=== PATIENT | female | born 1950 | race Caucasian/White ===

== ENCOUNTER → 2017-04-25 | Outpatient (CLI) | payer OTHER ==
[2017-04-25 13:41] LABS: ALBUMIN 4.1 GM/DL (3.2-5.2); ALBUMIN/GLOBULIN RATIO 1.28 (1.00-1.93); BILIRUBIN,TOTAL 0.4 MG/DL (0.2-1.0); CALCIUM LEVEL 9.2 MG/DL (8.8-10.2); CREATININE FOR GFR 1.14 MG/DL (0.55-1.02); GLOMERULAR FILTRATION RATE 50.9 (>45); POTASSIUM SERUM 4.8 MEQ/L (3.5-5.1); TOTAL PROTEIN 7.3 GM/DL (6.4-8.2)
[2017-04-25 13:44] LABS: BASO % 0.5 % (0.0-1.0); EOS # 0.1 K/mm3 (0.0-0.50); EOS % 1.7 % (0.0-3.0); LARGE UNSTAINED CELL # 0.1 K/mm3 (0.0-0.4); LARGE UNSTAINED CELL % 1.7 % (0.0-4.0); LYMPH # 2.1 K/mm3 (1.5-4.5); LYMPH % 27.2 % (24.0-44.0); MEAN CORPUSCULAR HEMOGLOBIN 30.3 pg (27.0-33.0); MEAN CORPUSCULAR HGB CONC 32.8 g/dl (32.0-36.5); MEAN CORPUSCULAR VOLUME 92.4 fl (80.0-96.0); MONO # 0.3 K/mm3 (0.0-0.8); MONO % 4.1 % (0.0-5.0); NEUTROPHILS # 5.1 K/mm3 (1.8-7.7); NEUTROPHILS % 64.8 % (36.0-66.0); PLATELET COUNT, AUTOMATED 161 k/mm3 (150-450); RED CELL DISTRIBUTION WIDTH 14.6 % (11.5-14.5); WHITE BLOOD COUNT 7.8 K/mm3 (4.0-10.0)
== END ==
LOC: M SMT 11:06
PROVIDERS: ATTEND Family Medicine
DX: E11.40 Type 2 diabetes mellitus with diabetic neuropathy, unspecified (principal)

== ENCOUNTER → 2017-08-17 | Outpatient (CLI) | payer OTHER ==
--- NOTE | 2017-08-17 11:10 | REP ---
MR ANGIOGRAPHY OF THE CAROTID ARTERIES WITHOUT CONTRAST: HISTORY: Carotid artery disease. Weakness and dizziness. TECHNIQUE: 3D [id number] MR angiography is acquired. Maximal intensity projection images are generated and viewed rotationally. Source axial images are viewed. MR ANGIOGRAPHIC FINDINGS: The distal common carotid arteries are unremarkable bilaterally. There is evidence of atherosclerotic plaquing in the carotid bulb and proximal ICA bilaterally. On the left, there is 50-60% narrowing on the right, there is 75-80% narrowing at the origin of the ICA. The vertebral arteries are unremarkable as visualized. IMPRESSION: Bilateral ICA stenoses, 50-60% on the left and 75-80% on the right. Signed by Yamil Marcelino MD 08/17/2017 03:20 P
== END ==
LOC: M RAD 08-10 09:27
PROVIDERS: ATTEND Internal Medicine Cardiovascular Disease
DX: I65.23 Occlusion and stenosis of bilateral carotid arteries (principal)

== ENCOUNTER → 2017-11-12 | Outpatient (CLI) | payer OTHER ==
[2017-11-12 12:05] LABS: BASO % 0.5 % (0.0-1.0); EOS # 0.1 10^3/uL (0.0-0.50); EOS % 1.4 % (0.0-3.0); IMMATURE GRANULOCYTE % 0.8 % (0-0); LYMPH # 2.2 10^3/uL (1.5-4.5); LYMPH % 29.6 % (24.0-44.0); MEAN CORPUSCULAR HEMOGLOBIN 29.8 pg (27.0-33.0); MEAN CORPUSCULAR HGB CONC 33.2 g/dl (32.0-36.5); MEAN CORPUSCULAR VOLUME 89.7 fl (80.0-96.0); MONO # 0.4 10^3/uL (0.0-0.8); MONO % 5.8 % (0.0-5.0); NEUTROPHILS # 4.6 10^3/uL (1.8-7.7); NEUTROPHILS % 61.9 % (36.0-66.0); PLATELET COUNT, AUTOMATED 171 10^3/uL (150-450); RED CELL DISTRIBUTION WIDTH 14.6 % (11.5-14.5); WHITE BLOOD COUNT 7.4 10^3/uL (4.0-10.0)
[2017-11-12 21:15] LABS: ANION GAP 11 MEQ/L (8-16); BLOOD UREA NITROGEN 16 MG/DL (7-18); CALCIUM LEVEL 8.5 MG/DL (8.8-10.2); CARBON DIOXIDE LEVEL 24 MEQ/L (21-32); CHLORIDE LEVEL 107 MEQ/L (98-107); CREATININE FOR GFR 0.98 MG/DL (0.55-1.02); GLOMERULAR FILTRATION RATE > 60.0 (>45); GLUCOSE, FASTING 118 MG/DL (80-110); POTASSIUM SERUM 4.3 MEQ/L (3.5-5.1); SODIUM LEVEL 142 MEQ/L (136-145)
== END ==
LOC: M LAB 11:45
PROVIDERS: ATTEND Surgery Vascular Surgery
DX: I65.23 Occlusion and stenosis of bilateral carotid arteries (principal)

== ENCOUNTER → 2017-11-21 | Outpatient (CLI) | payer OTHER ==
[~2017-11-21] MED LIST: ISOVUE-370 76% 100ML VIAL (Q9967) As Ordered ONE
--- NOTE | 2017-11-21 12:38 | REP ---
CT ANGIO HEAD: HISTORY: Peripheral vascular disease. CONTRAST: Isovue 370 100 mL. There is no aneurysm or arteriovenous malformation. Calcified atherosclerotic plaques are present in the cavernous internal carotid arteries and supraclinoid left internal carotid artery. There is origin of the left posterior cerebral artery. The major intracranial vessels are patent. The right vertebral artery is dominant. The left vertebral artery terminates in the left posterior inferior cerebellar artery. IMPRESSION: 1. There is no aneurysm or arteriovenous malformation. 2. Atherosclerotic disease as described above. Signed by Ángel Addison MD 11/21/2017 12:40 P
--- NOTE | 2017-11-21 12:45 | REP ---
CT ANGIO NECK: HISTORY: Peripheral vascular disease. CONTRAST: Isovue 370 100 mL. A calcified atherosclerotic plaque is present at the origin of the right internal carotid artery. There is moderate stenosis of 40% of the right internal carotid artery at its origin. The origin of the right external carotid artery is normal. A calcified atherosclerotic plaque is present at the origin of the left internal carotid artery. There is mild stenosis of 15% of the left internal carotid artery at its origin. The origin of the left external carotid artery is normal. The right vertebral artery is dominant. The left vertebral artery terminates in the left posterior inferior cerebellar artery. The origins of the great vessels are normal. The left vetebral artery arises from the aortic arch. Two hypodensities 8 and 10 mm in size are present in the left thyroid lobe. These most likely represent cysts. IMPRESSION: 1. Moderate stenosis of 40% of the right internal carotid artery at its origin. 2. Mild stenosis of 15 % of the left internal carotid artery at its origin. 3. There are two hypodensities in the left thyroid lobe. These most likely represent cysts. Ultrasound may be helpful for further evaluation. Signed by Ángel Addison MD 11/21/2017 12:56 P
== END ==
LOC: M RAD 10:50
PROVIDERS: ATTEND Surgery Vascular Surgery
DX: I73.9 Peripheral vascular disease, unspecified (principal); R93.8 Abnormal findings on diagnostic imaging of other specified body structures
CPT/HCPCS: 70496; 70498; Q9967

== ENCOUNTER → 2017-12-20 | Outpatient (CLI) | payer OTHER | LOC: M RAD 12:27 | DX: I70.213 Atherosclerosis of native arteries of extremities with intermittent claudication, bilateral legs (principal); E08.51 Diabetes mellitus due to underlying condition with diabetic peripheral angiopathy without gangrene | CPT/HCPCS: 93925 ==

== ENCOUNTER → 2018-07-12 | Outpatient (CLI) | payer MEDICARE | LOC: M RAD 11:00 | DX: I70.213 Atherosclerosis of native arteries of extremities with intermittent claudication, bilateral legs (principal); E08.51 Diabetes mellitus due to underlying condition with diabetic peripheral angiopathy without gangrene | CPT/HCPCS: 93925 ==

== ENCOUNTER → 2019-05-13 | Outpatient (CLI) | payer MEDICARE ==
--- NOTE | 2019-05-13 14:50 | REP ---
Right lower extremity arterial duplex ultrasound: Right brachial peak systole 160 mmHg. Right dorsalis pedis peak systole 90 mmHg. Right VOCATIONAL TRAINING DIRECTOR peak systole 150 mmHg. REGINA: 0.94. Peak Systolic Phasicity Velocity REGISTERED DENTAL ASSISTANT RDA 131 monophasic Profunda 160 monophasic SFA prox 164 monophasic SFA mid 51 monophasic SFA dist 64 monophasic Pop 66 monophasic DAVE prox 40 monophasic Tib/P tr 45 monophasic VOCATIONAL TRAINING DIRECTOR pr 43 monophasic VOCATIONAL TRAINING DIRECTOR dst 48 monophasic DAVE dst 48 monophasic Left lower extremity arterial duplex ultrasound: Left brachial peak systole 135 mmHg. Left dorsalis pedis peak systole 85 mmHg. Left VOCATIONAL TRAINING DIRECTOR peak systole 100 mmHg. REGINA 0.63 Peak Systolic Phasicity Velocity REGISTERED DENTAL ASSISTANT RDA the 105 triphasic Profunda 147 triphasic SFA prox 70 triphasic SFA mid 135 occluded SFA dist 71 triphasic Pop 855 triphasic DAVE prox 27 triphasic Tib/P tr 35 triphasic VOCATIONAL TRAINING DIRECTOR pr 832 triphasic VOCATIONAL TRAINING DIRECTOR dst 34 triphasic DAVE dst 18 triphasic The patient has history of increasing claudication. The left mid to distal superior femoral artery is occluded, as on prior study. There is significant atheromatous plaque throughout, slightly worse than prior studies. The REGINA is stable, however, flow appears decreased, possibly from atheromatous calcification resulting in false REGINA ratios. Overall, slightly worse than prior studies. Electronically Signed by Huang Reyez MD 05/13/2019 02:41 P
== END ==
LOC: M RAD 12:08
PROVIDERS: ATTEND Surgery Vascular Surgery
DX: I70.213 Atherosclerosis of native arteries of extremities with intermittent claudication, bilateral legs (principal)

== ENCOUNTER → 2019-06-02 | Outpatient (CLI) | payer MEDICARE ==
[~2019-06-02] MED LIST changes: +BUPIVACAINE HCL 0.5% 10 ML VIAL As Ordered ONE; +HEPARIN 1,000 UNITS/ML 10ML VIAL (FOR RADIOLOGY& DIALYSIS ONLY) As Ordered ONE; +ISOVUE-300 61% 50ML VIAL (Q9967) As Ordered ONE; -ISOVUE-370 76% 100ML VIAL (Q9967) As Ordered ONE; +LIDOCAINE 2% MDV 20 ML VIAL As Ordered ONE; +MIDAZOLAM INJ 2 MG/2 ML VIAL (J2250) As Ordered ONE; +PROTAMINE SULF INJ 50 MG/5 ML VIAL (J2720) As Ordered ONE; +diphenhydrAMINE INJ 50MG/ML VIAL (J1200) As Ordered ONE; +fentaNYL 100 MCG/2 ML INJECTION (J3010) As Ordered ONE
--- NOTE | 2019-06-04 14:57 | REPIR ---
DATE OF PROCEDURE: 06/02/2019 ATTENDING SURGEON: Dr. Shaista Hull SLICE PLUG CUTTER OPERATOR HELPER: Fe Hameed and Ivon Colvin. PREOPERATIVE DIAGNOSIS: Bilateral lower extremity claudication. POSTOPERATIVE DIAGNOSIS: Bilateral lower extremity claudication. PROCEDURE: Aortogram, iliofemoral angiogram, selective left common femoral artery catheter placement with left lower extremity angiogram, Mynx closure of the right common femoral arteriotomy. INDICATION: The patient is a 69-year-old female with bilateral lower extremity claudication and nonpalpable pulses; left is more significant than the right and the patient will undergo a left lower extremity angiogram. ANESTHESIA: Local. FLUOROSCOPY TIME: 1.2 minutes. CONTRAST: 12.5 mL. COMPLICATIONS: None. DRAINS: None. SPECIMENS: None. DESCRIPTION OF PROCEDURE: The patient was taken to the angiography suite, placed supine on the angiography table, and then prepped and draped in a standard surgical fashion. The right common femoral artery was cannulated. An aortogram, iliofemoral angiogram, and selective left common femoral artery angiogram were all performed. This showed severe atherosclerotic arterial occlusive disease in the distal left external iliac artery, common femoral artery, superficial femoral artery, and profunda femoris artery. The catheters and wires removed and a Mynx closure was used close the arteriotomy in the right common femoral artery with an additional 10 minutes of adjunctive pressure applied for hemostasis. Dressings were then applied. The patient tolerated procedure well. All instrument, sponge, and needle counts were correct at the end of the case. There were no complications. Dr. Hull was present for and directed the entire case. The patient was transferred to the holding area and subsequently discharged in stable condition.
== END ==
LOC: M IRPRO 07:54
PROVIDERS: ATTEND Surgery Vascular Surgery
DX: I70.213 Atherosclerosis of native arteries of extremities with intermittent claudication, bilateral legs (principal)
CPT/HCPCS: 36246; 75710; C1760; C1769; C1887; C1894; G0269; Q9967

== ENCOUNTER 2019-07-01 11:40 | Inpatient (IN) | payer MEDICARE ==
[~2019-07-01] VITALS: Ht 167.6 cm; Wt 132.6 kg
[~2019-07-01 11:40] MED LIST changes: +ALLO100T PO; +ASPI81TA26 PO; +ATOR40TA75 PO; -BUPIVACAINE HCL 0.5% 10 ML VIAL As Ordered ONE; +GLIM2TAB29 PO; -HEPARIN 1,000 UNITS/ML 10ML VIAL (FOR RADIOLOGY& DIALYSIS ONLY) As Ordered ONE; -ISOVUE-300 61% 50ML VIAL (Q9967) As Ordered ONE; +JANU50TA4 PO; +LIDOCAINE 1% MDV 20ML VIAL SQ PRN; -LIDOCAINE 2% MDV 20 ML VIAL As Ordered ONE; +LISI-542 PO; +LR 1,000 ML IV ONE; +METO1TAB32 PO; -MIDAZOLAM INJ 2 MG/2 ML VIAL (J2250) As Ordered ONE; +MULTCAP PO; +PLAV1TAB2 PO; -PROTAMINE SULF INJ 50 MG/5 ML VIAL (J2720) As Ordered ONE; +VENTAER; -diphenhydrAMINE INJ 50MG/ML VIAL (J1200) As Ordered ONE; -fentaNYL 100 MCG/2 ML INJECTION (J3010) As Ordered ONE
[2019-07-01 12:16] LABS: INR 1.05; PROTHROMBIN TIME 13.4 SECONDS (11.8-14.0)
[2019-07-01 12:17] LABS: PARTIAL THROMBOPLASTIN TIME 30.5 SECONDS (25.0-38.4)
--- NOTE | 2019-07-01 12:30 | HPEPDOC ---
[facility] Medical History & Physical Date of Admission Jul 01, 2019 Date of Service: Jul 01, 2019 History and Physical Vascular Surgery Dr Hull HPI: 69year old F with a past medical history significant for PAD with h/o claudication L>R LE. S/P angiogram 06/02/[address] Hull with recommendation to proceed with Left femoral endarterectomy and LLE angiogram with possible angioplasty/stent. No voiced complaints today. Denies recent illnesses. Denies any fevers, chills, weakness, fatigue, Headache, Chest Pain, Shortness of breath, cough, palpitations, abdominal pain, N/V/D or changes in bowel or bladder habits. PMHx: PAD Carotid stenosis <50% B/L US 11/11. DM2 HTN HLD CAD/cardiac stents x 2 2014 VHD. Aortic stenosis. gout obesity BMI 40.0 PSHX: C section cholecystectomy Rt CTR LLE angiogram 06/02/19. SOCHX: Tobacco use: quit 1988. 1 ppd x 35 yrs. ETOH: 2-3 drinks per year Illicit Drugs: Denies FAMHX: Mother: CAD, DM, HTN Father: CAD ROS: As noted in HPI, otherwise 11pt ROS of systems reviewed and unremarkable. PE: GEN: [id number], appears stated age.No acute distress. Alert and oriented x 3. HEENT: Normocephalic, atraumatic. No facial asymmetry. Moist mucous membranes. CHEST: Regular rate and rhythm, +S1, +S2 LUNGS: Clear to auscultation bilaterally. No wheezes, rales, or rhonchi. Breathing appears symmetric and easy. ABD: Round, soft, non-tender, non-distended. +Bowel sounds throughout. EXT: No lower extremity edema appreciated. No calf TTP. SKIN: [place], dry, warm. No rashes. NEURO: Alert and oriented x 3. Cranial nerves III-XII are intact. No focal deficits appreciated. CBC/BMP/PT/PTT pending. A&P: 1. PAD. S/P angiogram 06/02/[address] Hull with severe atherosclerotic arterial occlusive disease in the distal left external iliac artery, common femoral artery, superficial femoral artery, and profunda femoris artery. Plan as per Dr Hull is for Left femoral endarterectomy and LLE angiogram with possible intervention 07/01/19. Pt is on ASA/Plavix /Lipitor as outpt. CBC/BMP/PT/PTT pending. 2. HTN. Lisinopril/Metoprolol as outpt 3. CAD/Cardiac stents. Metoprolol/ASA/Statin. 4. DM. NPO currently. Janumet and Glimepiride as outpt. 5. HLD. Statin. Vital Signs VS pending Laboratory Data Labs 24H Laboratory Tests 2 07/01/19 11:50: Home Medications Scheduled Allopurinol (Allopurinol) 100 Mg Tablet, 100 MG PO DAILY Aspirin (Aspirin EC) 81 Mg Tablet.dr, 81 MG PO DAILY Atorvastatin Calcium (Atorvastatin Calcium) 40 Mg Tablet, 40 MG PO DAILY Clopidogrel Bisulfate (Plavix) 75 Mg Tablet, 75 MG PO DAILY Glimepiride (Glimepiride) 2 Mg Tablet, 2 MG PO DAILY Lisinopril (Lisinopril) 5 Mg Tablet, 5 MG PO DAILY Metoprolol Succinate (Metoprolol Succinate) 25 Mg Tab.er.24h, 12.5 MG PO DAILY Multivitamin (Multivitamins) 1 Each Capsule, 1 CAP PO DAILY Sitagliptin Phos/Metformin HCl (Janumet 50-500 mg Tablet) 1 Each Tablet, 50-500 MG PO BID Scheduled PRN Albuterol Sulfate (Ventolin Hfa) 18 Gm Hfa.aer.ad, Q4-6HP PRN for SOB/WHEEZING Allergies Coded Allergies: Penicillins (Verified Allergy, Intermediate, hives nausea, 07/01/19) A-FIB/CHADSVASC A-FIB History Current/History of A-Fib/PAF?: No Jacqui Toribio Jul 01, 2019 12:30
[2019-07-01 13:49] LABS: HEMATOCRIT 34.3 % (36.0-47.0); HEMOGLOBIN 11.4 g/dl (12.0-15.5); MEAN CORPUSCULAR HEMOGLOBIN 30.2 pg (27.0-33.0); MEAN CORPUSCULAR HGB CONC 33.2 g/dl (32.0-36.5); MEAN CORPUSCULAR VOLUME 90.7 fl (80.0-96.0); PLATELET COUNT, AUTOMATED 158 10^3/uL (150-450); RED BLOOD COUNT 3.78 10^6/uL (4.00-5.40); WHITE BLOOD COUNT 6.8 10^3/uL (4.0-10.0)
[2019-07-01 13:56] LABS: BLOOD UREA NITROGEN 18 MG/DL (7-18); CALCIUM LEVEL 8.7 MG/DL (8.8-10.2); CARBON DIOXIDE LEVEL 24 MEQ/L (21-32); CHLORIDE LEVEL 111 MEQ/L (98-107); CREATININE FOR GFR 0.86 MG/DL (0.55-1.30); GLOMERULAR FILTRATION RATE > 60.0 (>45); GLUCOSE, FASTING 115 MG/DL (70-100); POTASSIUM SERUM 4.1 MEQ/L (3.5-5.1); SODIUM LEVEL 142 MEQ/L (136-145)
[2019-07-01] MEDS ORDERED: MIDAZOLAM INJ 2 MG/2 ML VIAL (J2250) As Ordered ONE (14:10)
[2019-07-01] MEDS ORDERED: LIDOCAINE 2% INJ 100 MG/5 ML SDV (FOR ANES.) As Ordered ONE (14:10)
[2019-07-01] MEDS ORDERED: PROPOFOL 500 MG/50 ML VIAL As Ordered ONE (14:10)
[2019-07-01] MEDS ORDERED: dexameTHASONE 4 MG/ML 1ML VIAL (J1100) As Ordered ONE (14:10)
[2019-07-01] MEDS ORDERED: ONDANSETRON 4MG/2ML VIAL (J2405) As Ordered ONE (14:10)
[2019-07-01] MEDS ORDERED: fentaNYL 100 MCG/2 ML INJECTION (J3010) As Ordered ONE (14:10)
[2019-07-01] MEDS ORDERED: KETAMINE HCL 200 MG/20 ML VIAL As Ordered ONE (14:35)
[2019-07-01] MEDS ORDERED: LIDOCAINE 1% MDV 20ML VIAL As Ordered ONE (14:36)
[2019-07-01] MEDS ORDERED: BUPIVACAINE HCL 0.5% 10 ML VIAL As Ordered ONE (14:36)
[2019-07-01] MEDS ORDERED: HEPARIN SOD (PORCINE) 5000 UNITS/ML VIAL As Ordered ONE ×2 (14:36→16:17)
[2019-07-01] MEDS ORDERED: THROMBIN SOLN 20,000 UNITS KIT As Ordered ONE (14:36)
[2019-07-01] MEDS ORDERED: LIDOCAINE 2% MDV 20 ML VIAL As Ordered ONE (15:06)
[2019-07-01] MEDS ORDERED: ceFAZolin 2 GM/D5W 50 ML IV BAG (J0690 PER 500MG) As Ordered ONE (15:11)
[2019-07-01] MEDS ORDERED: ACETAMINOPHEN 1000MG 100ML IV BTL (OFIRMEV) (J0131 PER 10MG) As Ordered ONE (15:22)
[2019-07-01] MEDS ORDERED: PROPOFOL 200 MG/20 ML VIAL As Ordered ONE (15:43)
[2019-07-01] MEDS ORDERED: PROTAMINE SULF INJ 50 MG/5 ML VIAL (J2720) As Ordered ONE (16:17)
[2019-07-01] MEDS ORDERED: ONDANSETRON 4MG/2ML VIAL (J2405) IV PRN ×2 (16:30→17:00)
[2019-07-01] MEDS ORDERED: MOM 30ML SUSPENSION UDC PO PRN (16:30)
[2019-07-01] MEDS ORDERED: NORCO, ANEXSIA 5/325MG TABLET (HYDROcodone/ACETAMINOPHEN) PO PRN (16:30)
[2019-07-01] MEDS ORDERED: ALBUTEROL 90 MCG/ACT 8GM HFA INHALER INH PRN (16:30)
[2019-07-01] MEDS ORDERED: MORPHINE 4 MG/ML 1ML VIAL/SYRINGE (J2270) IV PRN (16:30)
[2019-07-01] MEDS ORDERED: BISACODYL 10 MG SUPP PR PRN (16:30)
[2019-07-01] MEDS: fentaNYL 100 MCG/2 ML INJECTION (J3010) IV PRN ×2 (16:59→17:09)
[2019-07-01] MEDS ORDERED: oxyCODONE 5MG TAB PO PRN (17:00)
[2019-07-01] MEDS ORDERED: LR 1,000 ML IV SCH (17:00)
[2019-07-01 17:30] VITALS: BP 138/85
[2019-07-01 18:00] VITALS: BP 140/70
[2019-07-01 18:30] VITALS: BP 149/70
[2019-07-01] MEDS ORDERED: GLUCAGON FOR INJ 1 MG VIAL (J1610) SC PRN (18:30)
[2019-07-01] MEDS ORDERED: GLUCOSE 4 GM CHEW TABLET PO PRN (18:30)
[2019-07-01] MEDS ORDERED: SLF 3 ML SYR IV PRN (18:30)
[2019-07-01] MEDS ORDERED: DEXTROSE 50% 50 ML SYRINGE IV PRN (18:30)
[2019-07-01 20:00] VITALS: BP 160/84
[2019-07-01] MEDS: DOCUSATE SODIUM 100 MG CAP PO SCH (21:00)
[2019-07-01] MEDS: SENOKOT S TAB PO SCH (21:00)
[2019-07-01] MEDS: HumaLOG INSULIN (NovoLOG) PER UNIT SC SCH (22:03)
[2019-07-01] MEDS: SLF 3 ML SYR IV SCH (22:03)
[2019-07-01 23:59] VITALS: BP 131/69
[2019-07-02] MEDS: ACETAMINOPHEN TAB 650MG DOSE (2X325MG) PO PRN ×2 (02:06→08:30)
[2019-07-02 04:00] VITALS: BP 126/75
[2019-07-02] MEDS: SLF 3 ML SYR IV SCH ×3 (05:17→22:22)
[2019-07-02 06:06] LABS: HEMATOCRIT 31.6 % (36.0-47.0); HEMOGLOBIN 10.5 g/dl (12.0-15.5); MEAN CORPUSCULAR HGB CONC 33.2 g/dl (32.0-36.5); MEAN CORPUSCULAR VOLUME 90.3 fl (80.0-96.0); PLATELET COUNT, AUTOMATED 150 10^3/uL (150-450); WHITE BLOOD COUNT 11.4 10^3/uL (4.0-10.0)
[2019-07-02 06:28] LABS: CALCIUM LEVEL 8.8 MG/DL (8.8-10.2); GLOMERULAR FILTRATION RATE 58.9 (>45); POTASSIUM SERUM 4.4 MEQ/L (3.5-5.1)
[2019-07-02 08:00] VITALS: BP 135/65
[2019-07-02] MEDS: HumaLOG INSULIN (NovoLOG) PER UNIT SC SCH ×4 (08:29→21:00)
[2019-07-02] MEDS: ATORVASTATIN 20 MG TAB PO SCH (08:30)
[2019-07-02] MEDS: DOCUSATE SODIUM 100 MG CAP PO SCH ×2 (08:30→21:00)
[2019-07-02] MEDS: PANTOPRAZOLE 40MG TAB (PROTONIX) PO SCH (08:30)
[2019-07-02] MEDS: CLOPIDOGREL 75 MG TAB PO SCH (08:30)
[2019-07-02] MEDS: SENOKOT S TAB PO SCH ×2 (08:30→21:00)
[2019-07-02] MEDS: LISINOPRIL 5 MG TAB PO SCH (08:31)
[2019-07-02] MEDS: ALLOPURINOL 100 MG TAB PO SCH (08:44)
[2019-07-02] MEDS: METOPROLOL SUCC *XL* 12.5MG PER 1/2 TAB (TopROL *XL*) PO SCH (10:43)
[2019-07-02 12:00] VITALS: BP 137/69
--- NOTE | 2019-07-02 12:44 | IPNPDOC ---
Date Seen The patient was seen on 07/02/19. Progress Note Vascular Surgery Dr Hull HPI: 69year old F with a past medical history significant for PAD with h/o claudication L>R LE. S/P angiogram 06/02/[address] Hull with recommendation to proceed with Left femoral endarterectomy and LLE angiogram with possible angioplasty/stent. Status post left femoral endarterectomy 07/01/[address] Hull. The patient states she is having pain, has had difficulty getting out of bed and ambulating. She states she does not have anyone to help her at home and is concerned about going home. She states she does not want to take anything other than Tylenol for pain. Denies any fevers, chills, weakness, fatigue, Headache, Chest Pain, Shortness of breath, cough, palpitations, abdominal pain, N/V/D or changes in bowel or bladder habits. PMHx: PAD Carotid stenosis <50% B/L US 11/11. DM2 HTN HLD CAD/cardiac stents x 2 2014 VHD. Aortic stenosis. gout obesity BMI 40.0 PSHX: C section cholecystectomy Rt CTR LLE angiogram 06/02/19. PE: GEN: [id number], appears stated age.No acute distress. Alert and oriented x 3. HEENT: Normocephalic, atraumatic. No facial asymmetry. Moist mucous membranes. CHEST: Regular rate and rhythm, +S1, +S2 LUNGS: Clear to auscultation bilaterally. No wheezes, rales, or rhonchi. Breathing appears symmetric and easy. ABD: Round, soft, non-tender, non-distended. +Bowel sounds throughout. EXT: No lower extremity edema appreciated. No calf TTP. Pulses are obtained lower extremities and are biphasic with Doppler. SKIN: Dressing is intact left groin. NEURO: Alert and oriented x 3. No focal deficits appreciated. A&P: 1. PAD. S/P angiogram 06/02/[address] Hull with severe atherosclerotic arterial occlusive disease in the distal left external iliac artery, common femoral artery, superficial femoral artery, and profunda femoris artery. Status post Left femoral endarterectomy 07/02/[address] Hull. Lipitor/Plavix Monitor labs Request PT eval. Continue with Tylenol as needed. Patient has additional pain medication ordered however she states she does not wish to take anything other than Tylenol. Patient does not feel ready for discharge today. Anticipate DC in AM, await PT eval. 2. HTN. Lisinopril/Metoprolol 3. CAD/Cardiac stents. Metoprolol/Plavix/Statin. 4. DM. CC diet. SSI Janumet and Glimepiride as outpt. 5. HLD. Statin. VS, I&O, 24H, Fishbone Vital Signs/I&O Vital Signs Date Time Temp Pulse Resp B/P (MAP) Pulse Ox O2 Delivery O2 Flow Rate FiO2 07/02/19 12:00 98.2 75 20 137/69 (91) 94 I&O- Last 24 Hours up to 6 AM 07/02/19 05:59 Intake Total 100 ml Output Total 800 ml Balance -700 ml Laboratory Data 24H LABS Laboratory Tests 2 07/01/19 12:46: Nucleated Red Blood Cells % (auto) 0.0, Anion Gap 7L, Glomerular Filtration Rate > 60.0, Blood Urea Nitrogen 18, Creatinine 0.86, Sodium Level 142, Potassium Lev el 4.1, Chloride Level 111H, Carbon Dioxide Level 24, Calcium Level 8.7L 07/01/19 20:36: Bedside Glucose (Misc Panel) 257H 07/02/19 05:47: Nucleated Red Blood Cells % (auto) 0.0, Anion Gap 5L, Glomerular Filtration Rate 58.9, Blood Urea Nitrogen 21H, Creatinine 1.00, Sodium Level 140, Potassium Level 4.4, Chloride Level 110H, Carbon Dioxide Level 25, Calcium Level 8.8 07/02/19 12:24: Bedside Glucose (Misc Panel) 180H CBC/BMP Laboratory Tests 07/01/19 12:46 Red Blood Count 3.78 L, Mean Corpuscular Volume 90.7, Mean Corpuscular Hemoglobin 30.2, Mean Corpuscular Hemoglobin Concent 33.2, Red Cell Distribution Width 15.0 H, Calcium Level 8.7 L 07/02/19 05:47 Red Blood Count 3.50 L, Mean Corpuscular Volume 90.3, Mean Corpuscular Hemoglobin 30.0, Mean Corpuscular Hemoglobin Concent 33.2, Red Cell Distribution Width 14.9 H, Calcium Level 8.8 Jacqui Toribio Jul 02, 2019 12:43
[2019-07-02 16:00] VITALS: BP 130/65
[2019-07-02 20:00] VITALS: BP 115/56
[2019-07-02 23:59] VITALS: BP 97/46
[2019-07-03 04:00] VITALS: BP 112/55
[2019-07-03] MEDS: SLF 3 ML SYR IV SCH ×3 (05:05→21:22)
[2019-07-03 06:11] LABS: HEMATOCRIT 29.5 % (36.0-47.0); HEMOGLOBIN 9.7 g/dl (12.0-15.5); MEAN CORPUSCULAR HGB CONC 32.9 g/dl (32.0-36.5); MEAN CORPUSCULAR VOLUME 94.2 fl (80.0-96.0); PLATELET COUNT, AUTOMATED 124 10^3/uL (150-450); RED BLOOD COUNT 3.13 10^6/uL (4.00-5.40); WHITE BLOOD COUNT 9.6 10^3/uL (4.0-10.0)
[2019-07-03 06:32] LABS: BLOOD UREA NITROGEN 23 MG/DL (7-18); CALCIUM LEVEL 8.2 MG/DL (8.8-10.2); CARBON DIOXIDE LEVEL 26 MEQ/L (21-32); CHLORIDE LEVEL 110 MEQ/L (98-107); CREATININE FOR GFR 0.96 MG/DL (0.55-1.30); GLOMERULAR FILTRATION RATE > 60.0 (>45); GLUCOSE, FASTING 135 MG/DL (70-100); POTASSIUM SERUM 4.1 MEQ/L (3.5-5.1); SODIUM LEVEL 141 MEQ/L (136-145)
[2019-07-03 08:00] VITALS: BP 123/60
[2019-07-03] MEDS: HumaLOG INSULIN (NovoLOG) PER UNIT SC SCH ×4 (08:28→21:00)
[2019-07-03] MEDS: SENOKOT S TAB PO SCH ×2 (08:30→21:00)
[2019-07-03] MEDS: CLOPIDOGREL 75 MG TAB PO SCH (08:30)
[2019-07-03] MEDS: ATORVASTATIN 20 MG TAB PO SCH (08:30)
[2019-07-03] MEDS: LISINOPRIL 5 MG TAB PO SCH (08:31)
[2019-07-03] MEDS: METOPROLOL SUCC *XL* 12.5MG PER 1/2 TAB (TopROL *XL*) PO SCH (08:31)
[2019-07-03] MEDS: DOCUSATE SODIUM 100 MG CAP PO SCH ×2 (08:31→21:00)
[2019-07-03] MEDS: PANTOPRAZOLE 40MG TAB (PROTONIX) PO SCH (08:31)
[2019-07-03] MEDS: ALLOPURINOL 100 MG TAB PO SCH (08:33)
--- NOTE | 2019-07-03 10:57 | IPNPDOC ---
Date Seen The patient was seen on 07/03/19. Progress Note Vascular Surgery Dr Hull HPI: 69year old F with a past medical history significant for PAD with h/o claudication L>R LE. S/P angiogram 06/02/[address] Hull with recommendation to proceed with Left femoral endarterectomy and LLE angiogram with possible angioplasty/stent. Status post left femoral endarterectomy 07/01/[address] Hull. The patient states she is still having pain, getting out of bed and ambulating better. Not safe per PT 07/02/19. She states she does not have anyone to help her at home and is concerned about going home. She states she does not want to take anything other than Tylenol for pain. Denies any fevers, chills, weakness, fatigue, Headache, Chest Pain, Shortness of breath, cough, palpitations, abdominal pain, N/V/D or changes in bowel or bladder habits. PMHx: PAD Carotid stenosis <50% B/L US 11/11. DM2 HTN HLD CAD/cardiac stents x 2 2014 VHD. Aortic stenosis. gout obesity BMI 40.0 PSHX: C section cholecystectomy Rt CTR LLE angiogram 06/02/19. PE: GEN: [email or web address], appears stated age.No acute distress. Alert and oriented x 3. HEENT: Normocephalic, atraumatic. No facial asymmetry. Moist mucous membranes. CHEST: Regular rate and rhythm, +S1, +S2 LUNGS: Clear to auscultation bilaterally. No wheezes, rales, or rhonchi. Breathing appears symmetric and easy. ABD: Round, soft, non-tender, non-distended. +Bowel sounds throughout. EXT: No lower extremity edema appreciated. No calf TTP. Feet are warm with good cap refill. SKIN: Dressing is intact left groin, this is replaced, no drainage, surrounding ecchymosis noted, cornell intact. NEURO: Alert and oriented x 3. No focal deficits appreciated. A&P: 1. PAD. S/P angiogram 06/02/[address] Hull with severe atherosclerotic arterial occlusive disease in the distal left external iliac artery, common femoral artery, superficial femoral artery, and profunda femoris artery. Status post Left femoral endarterectomy 07/02/[address] Hull. Hgb 9.7. no leukocytosis. Lipitor/Plavix PT eval not safe 07/02/19. Continue with Tylenol as needed. Patient has additional pain medication ordered however she states she does not wish to take anything other than Tylenol. Will transfer to M/S, Await PT clearance for d/c. 2. HTN. Lisinopril/Metoprolol 3. CAD/Cardiac stents. Metoprolol/Plavix/Statin. 4. DM. CC diet. SSI Janumet and Glimepiride as outpt. 5. HLD. Statin. VS, I&O, 24H, Fishbone Vital Signs/I&O Vital Signs Date Time Temp Pulse Resp B/P (MAP) Pulse Ox O2 Delivery O2 Flow Rate FiO2 07/03/19 08:31 123/60 07/03/19 08:00 97.4 68 18 94 I&O- Last 24 Hours up to 6 AM 07/03/19 06:00 Intake Total 1080 ml Output Total 1100 ml Balance -20 ml Laboratory Data 24H LABS Laboratory Tests 2 07/02/19 12:24: Bedside Glucose (Misc Panel) 180H 07/02/19 17:19: Bedside Glucose (Misc Panel) 162H 07/02/19 20:20: Bedside Glucose (Misc Panel) 172H 07/03/19 05:45: Nucleated Red Blood Cells % (auto) 0.0, Anion Gap 5L, Glomerular Filtration Rate > 60.0, Blood Urea Nitrogen 23H, Creatinine 0.96, Sodium Level 141, Potassium Level 4.1, Chloride Level 110H, Carbon Dioxide Level 26, Calcium Level 8.2L CBC/BMP Laboratory Tests 07/03/19 05:45 Red Blood Count 3.13 L, Mean Corpuscular Volume 94.2, Mean Corpuscular Hemoglobin 31.0, Mean Corpuscular Hemoglobin Concent 32.9, Red Cell Distribution Width 15.5 H, Calcium Level 8.2 L Jacqui Toribio Jul 03, 2019 10:57
[2019-07-03 12:00] VITALS: BP 136/65
[2019-07-03 16:00] VITALS: BP 127/64
[2019-07-03 20:00] VITALS: BP 133/65
[2019-07-04 04:00] VITALS: BP 122/65
[2019-07-04 05:52] LABS: HEMOGLOBIN 9.6 g/dl (12.0-15.5); MEAN CORPUSCULAR HEMOGLOBIN 30.9 pg (27.0-33.0); MEAN CORPUSCULAR HGB CONC 33.1 g/dl (32.0-36.5); MEAN CORPUSCULAR VOLUME 93.2 fl (80.0-96.0); PLATELET COUNT, AUTOMATED 117 10^3/uL (150-450); RED BLOOD COUNT 3.11 10^6/uL (4.00-5.40); WHITE BLOOD COUNT 7.9 10^3/uL (4.0-10.0)
[2019-07-04 06:10] LABS: BLOOD UREA NITROGEN 19 MG/DL (7-18); CALCIUM LEVEL 8.1 MG/DL (8.8-10.2); CARBON DIOXIDE LEVEL 25 MEQ/L (21-32); CHLORIDE LEVEL 110 MEQ/L (98-107); CREATININE FOR GFR 0.98 MG/DL (0.55-1.30); GLOMERULAR FILTRATION RATE > 60.0 (>45); GLUCOSE, FASTING 142 MG/DL (70-100); SODIUM LEVEL 142 MEQ/L (136-145)
[2019-07-04 08:00] VITALS: BP 133/74
[2019-07-04] MEDS: SENOKOT S TAB PO SCH (09:00)
[2019-07-04] MEDS: DOCUSATE SODIUM 100 MG CAP PO SCH (09:00)
[2019-07-04] MEDS: CLOPIDOGREL 75 MG TAB PO SCH (09:49)
[2019-07-04] MEDS: PANTOPRAZOLE 40MG TAB (PROTONIX) PO SCH (09:49)
[2019-07-04] MEDS: ATORVASTATIN 20 MG TAB PO SCH (09:49)
[2019-07-04 09:50] VITALS: BP 133/74
[2019-07-04] MEDS: ALLOPURINOL 100 MG TAB PO SCH (09:50)
[2019-07-04] MEDS: METOPROLOL SUCC *XL* 12.5MG PER 1/2 TAB (TopROL *XL*) PO SCH (09:50)
[2019-07-04] MEDS: LISINOPRIL 5 MG TAB PO SCH (09:50)
[2019-07-04] MEDS: HumaLOG INSULIN (NovoLOG) PER UNIT SC SCH (09:54)
--- NOTE | 2019-07-04 10:47 | DS.PDOC ---
Discharge Summary General Date of Admission Jul 01, 2019 at 11:40 Date of Discharge 07/04/19 Discharge Summary PROCEDURES PERFORMED DURING STAY: Left femoral endarterectomy 07/01/19 Dr Hull ADMITTING DIAGNOSES: claudication PAD Carotid stenosis <50% B/L US 11/11. DM2 HTN HLD CAD/cardiac stents x 2 2014 VHD. Aortic stenosis. gout obesity BMI 40.0 DISCHARGE DIAGNOSES: Claudication PAD/S/P Left femoral endarterectomy Carotid stenosis <50% B/L US 11/11. DM2 HTN HLD CAD/cardiac stents x 2 2014 VHD. Aortic stenosis. gout obesity BMI 40.0 COMPLICATIONS/CHIEF COMPLAINT: Claudication. HISTORY OF PRESENT ILLNESS: 69year old F with a past medical history significant for PAD with h/o claudication L>R LE. S/P angiogram 06/02/[address] Hull with recommendation to proceed with Left femoral endarterectomy. HOSPITAL COURSE: 69year old F with a past medical history significant for PAD with h/o claudica tion L>R LE. S/P angiogram 06/02/[address] Hull with recommendation to proceed with Left femoral endarterectomy. The pt underwent procedure as per Dr Hull 07/01/19 without reported complications. Pain has been controlled with Tylenol only. Pt has been afebrile. No leukocytosis. Hgb stable. The pt was seen by PT and is now cleared for d/c. DISCHARGE MEDICATIONS: Please see below. ALLERGIES: Please see below. PHYSICAL EXAMINATION ON DISCHARGE: VITAL SIGNS: Please see below. GEN: [id number], appears stated age.No acute distress. Alert and oriented x 3. HEENT: Normocephalic, atraumatic. No facial asymmetry. Moist mucous membranes. CHEST: Regular rate and rhythm, +S1, +S2 LUNGS: Clear to auscultation bilaterally. No wheezes, rales, or rhonchi. Breathing appears symmetric and easy. ABD: Round, soft, non-tender, non-distended. +Bowel sounds throughout. EXT: No lower extremity edema appreciated. No calf TTP. SKIN: Dressing is intact left groin. [place] are intact, no bleeding or drai nage. Surrounding ecchymosis is noted and unchanged from previously. Dry dressing is reapplied. NEURO: Alert and oriented x 3. No focal deficits appreciated. LABORATORY DATA: Please see below. ACTIVITY: [As tolerated]. DIET: CC DISCHARGE PLAN: Pt will resume outpt meds. Apply dressing to surgical wound BID. Continue Tylenol as needed for pain. Outpt FU with Dr Hull's office next week. ITEMS TO FOLLOWUP ON ON OUTPATIENT: 1. FU in office for staple removal DISCHARGE CONDITION: [Stable]. TIME SPENT ON DISCHARGE: Greater than 30 minutes. Vital Signs/I&Os Vital Signs Date Time Temp Pulse Resp B/P (MAP) Pulse Ox O2 Delivery O2 Flow Rate FiO2 07/04/19 09:50 74 133/74 07/04/19 08:00 97.5 19 95 I&O- Last 24 Hours up to 6 AM 07/04/19 06:00 Intake Total 840 ml Output Total 1525 ml Balance -685 ml Laboratory Data Labs 24H Laboratory Tests 2 07/03/19 12:29: Bedside Glucose (Misc Panel) 167H 07/03/19 17:51: Bedside Glucose (Misc Panel) 162H 07/03/19 21:14: Bedside Glucose (Misc Panel) 178H 07/04/19 05:33: Nucleated Red Blood Cells % (auto) 0.0, Anion Gap 7L, Glomerular Filtration Rate > 60.0, Blood Urea Nitrogen 19H, Creatinine 0.98, Sodium Level 142, Potassium Level 4.0, Chloride Level 110H, Carbon Dioxide Level 25, Calcium Level 8.1L 07/04/19 09:12: Bedside Glucose (Misc Panel) 194H CBC/BMP Laboratory Tests 07/04/19 05:33 Red Blood Count 3.11 L, Mean Corpuscular Volume 93.2, Mean Corpuscular Hemoglobin 30.9, Mean Corpuscular Hemoglobin Concent 33.1, Red Cell Distribution Width 15.3 H, Calcium Level 8.1 L FSBS Laboratory Tests Test 07/03/19 12:29 07/03/19 17:51 07/03/19 21:14 07/04/19 09:12 Range/Units Bedside Glucose (Misc Panel) 167 162 178 194 80-115 MG/DL Discharge Medications Scheduled Allopurinol (Allopurinol) 100 Mg Tablet, 100 MG PO DAILY, (Reported) Aspirin (Aspirin EC) 81 Mg Tablet.dr, 81 MG PO DAILY, (Reported) Atorvastatin Calcium (Atorvastatin Calcium) 40 Mg Tablet, 40 MG PO DAILY, (Reported) Clopidogrel Bisulfate (Plavix) 75 Mg Tablet, 75 MG PO DAILY, (Reported) Glimepiride (Glimepiride) 2 Mg Tablet, 2 MG PO DAILY, (Reported) Lisinopril (Lisinopril) 5 Mg Tablet, 5 MG PO DAILY, (Reported) Metoprolol Succinate (Metoprolol Succinate) 25 Mg Tab.er.24h, 12.5 MG PO DAILY, (Reported) Multivitamin (Multivitamins) 1 Each Capsule, 1 CAP PO DAILY, (Reported) Sitagliptin Phos/Metformin HCl (Janumet 50-500 mg Tablet) 1 Each Tablet, 50-500 MG PO BID, (Reported) Scheduled PRN Albuterol Sulfate (Ventolin Hfa) 18 Gm Hfa.aer.ad, Q4-6HP PRN for SOB/WHEEZING, (Reported) Allergies Coded Allergies: Penicillins (Verified Allergy, Intermediate, hives nausea, 07/01/19) Jacqui Toribio Jul 04, 2019 10:47
[2019-07-04 12:00] VITALS: BP 145/69
--- NOTE | 2019-07-10 22:01 | RO ---
DATE OF PROCEDURE: 07/01/2019 PREOPERATIVE DIAGNOSIS: Left lower extremity claudication. POSTOPERATIVE DIAGNOSIS: Left lower extremity claudication. PROCEDURE: Left external iliac artery, common femoral artery, superficial femoral artery and profunda femoris artery endarterectomy. SURGEON: Dr. Shen Hull OPERATIONS RESEARCH MANAGER: None. INDICATION: The patient is a 69-year-old female with left lower extremity claudication and severe atherosclerotic arterial occlusive disease in her external iliac artery, common femoral artery, superficial femoral and profunda femoris arteries. The patient will undergo an endarterectomy with possible femoral to popliteal artery bypass. ANESTHESIA: Local monitored anesthesia care (MAC). ESTIMATED BLOOD LOSS: 200 mL. IV FLUIDS: 800 mL. HEPARIN: 7000 units. PROTAMINE: 50 mg. COMPLICATIONS: None. DRAINS: Non. SPECIMEN: Left external iliac artery, common femoral artery, superficial femoral artery and profunda femoris plaque. DESCRIPTION OF PROCEDURE: The patient was taken to the operating room, placed supine on the operating room table and then prepped and draped in a standard surgical fashion. Oblique incision was made in the left inguinal region exposing the left external iliac artery, common femoral artery, superficial femoral and profunda femoris arteries, which were all sharply dissected free. The patient was given heparin after which the vessels were encircled with vessel loops and then clamped. An arteriotomy was made and a femoral endarterectomy, external iliac artery and superficial femoral endarterectomy plus an eversion profunda femoris endarterectomy was performed. The arteriotomy was closed using a XenoSure biologic patch and #6-0 Prolene suture in running continuous fashion. Hemostasis was obtained after which the incisions were closed using #2-0 Vicryl to approximate the deeper layers and cornell to approximate the skin. Dressings were applied. The patient tolerated the procedure well. All instrument, sponge, and needle counts were correct at the end of the case. There were no complications. Dr. Hull was present for and directed the entire case. The patient was transferred to the recovery room awake, alert, extubated and in stable condition.
== END 2019-07-04 12:52 | disposition home or self-care (01) | DRG 271 ==
LOC: M OR 11:40 → M PCU 17:32
PROVIDERS: ADMIT Surgery Vascular Surgery; ATTEND Surgery Vascular Surgery
PROC: 04CL0ZZ Extirpation of Matter from Left Femoral Artery, Open Approach (ICD-10-PCS; 2019-07-01)
PROC: 04UJ0JZ Supplement Left External Iliac Artery with Synthetic Substitute, Open Approach (ICD-10-PCS; 2019-07-01)
PROC: 04CJ0ZZ Extirpation of Matter from Left External Iliac Artery, Open Approach (ICD-10-PCS; principal; 2019-07-01 13:30)
DX: I70.212 Atherosclerosis of native arteries of extremities with intermittent claudication, left leg (principal); Z68.41 Body mass index [BMI] 40.0-44.9, adult; I65.23 Occlusion and stenosis of bilateral carotid arteries; E11.51 Type 2 diabetes mellitus with diabetic peripheral angiopathy without gangrene; I10 Essential (primary) hypertension; E78.5 Hyperlipidemia, unspecified; M10.9 Gout, unspecified; E66.9 Obesity, unspecified; Z90.49 Acquired absence of other specified parts of digestive tract; Z87.891 Personal history of nicotine dependence; Z79.02 Long term (current) use of antithrombotics/antiplatelets; Z79.84 Long term (current) use of oral hypoglycemic drugs; Z79.899 Other long term (current) drug therapy; Z79.82 Long term (current) use of aspirin; Z88.0 Allergy status to penicillin

== ENCOUNTER → 2019-08-11 | Outpatient (CLI) | payer MEDICARE ==
[~2019-08-11] MED LIST changes: -LIDOCAINE 1% MDV 20ML VIAL SQ PRN; -LR 1,000 ML IV ONE
--- NOTE | 2019-08-11 11:03 | REP ---
BILATERAL LOWER EXTREMITY DUPLEX DOPPLER ARTERIAL ULTRASOUND: COMPARISON: 05/03/2019 Real-time ultrasound evaluation and duplex Doppler interrogation of bilateral lower extremity arterial systems is performed. Once again, there is moderate to severe plaquing and narrowing diffusely bilaterally. Patient reportedly is status post left lower extremity arterial endarterectomy 07/01/2019. There is complex fluid in the left inguinal region consistent with postsurgical hematoma 3.7 x 2.3 x 3.6 cm. There is again apparent occlusion sonographically at the level of the mid to distal left superficial femoral artery with reconstitution of the distal left superficial femoral artery. RIGHT LOWER EXTREMITY: PEAK SYSTOLIC VELOCITY PHASICITY Common femoral artery 134 cm/s Triphasic Profunda 80.8 cm/s Biphasic Proximal superficial femoral artery 80.1 cm/s Triphasic Mid SFA 69.5 cm/s Triphasic Distal SFA 83.8 cm/s Monophasic Popliteal 54.4 cm/s Biphasic Proximal anterior tibial artery 20.6 cm/s Monophasic Tibial peroneal trunk 28.2 cm/s Monophasic Posterior tibial artery proximal 35.7 cm/s Monophasic Distal AIRPORT ELECTRICIAN 31.7 cm/s Monophasic Distal DAVE 36.1 cm/s Biphasic LEFT LOWER EXTREMITY: PEAK SYSTOLIC VELOCITY PHASICITY Common femoral artery 90.7 cm/s Monophasic Profunda 78.7 cm/s Monophasic SFA proximal 55.6 cm/s Biphasic SFA mid 105.0 cm/s Biphasic SFA distal 85.9 cm/s Monophasic Popliteal 35.5 cm/s Monophasic Proximal anterior tibial artery 26.7 cm/s Monophasic Tibial peroneal trunk 37.8 cm/s Monophasic Proximal AIRPORT ELECTRICIAN 56.3 cm/s Monophasic Distal AIRPORT ELECTRICIAN 28.0 cm/s Biphasic Distal DAVE 35.7 cm/s Monophasic Electronically Signed by Huang Sam MD 08/11/2019 04:10 P
== END ==
LOC: M RAD 08:46
PROVIDERS: ATTEND Physician Assistant
DX: I70.213 Atherosclerosis of native arteries of extremities with intermittent claudication, bilateral legs (principal)

== ENCOUNTER → 2020-01-01 | Outpatient (CLI) | payer MEDICARE ==
--- NOTE | 2020-01-01 14:56 | REP ---
CAROTID ULTRASOUND: Real-time ultrasound evaluation and duplex Doppler interrogation of the extracranial carotid vasculature is performed. There is mild to moderate plaquing and narrowing of both carotid bulbs and internal carotid arteries. There is mild elevation of the peak systolic velocity in the right internal carotid artery. ICA/CCA ratio is relatively normal at 1.12. Normal flow velocities are seen in the left internal carotid artery. There is normal direction of flow in both vertebral arteries. Incidental note is made of multiple thyroid nodules as were seen on the prior thyroid ultrasound 06/22/2015. The nodules are subcentimeter in size on the right. On the left there is a dominant heterogeneous solid nodule 2.0 x 1.4 x 1.9 cm which is unchanged since the prior thyroid ultrasound. PEAK SYSTOLIC VELOCITY RIGHT LEFT ICA 142.0 cm/s 104.0 cm/s End diastolic velocity ICA 24.3 34.3 Peak systolic velocity CCA 127.0 122.0 Peak systolic velocity ECA 98.8 102.0 ICA/CCA ratio 1.12 0.85 IMPRESSION: Mild to moderate plaquing and narrowing bilateral carotid bulbs and internal carotid arteries. There is mild elevated peak systolic velocity in the right internal carotid artery at 142 cm/s suggesting stenosis likely in the lower range of 50-79%. No stenosis left internal carotid artery. Electronically Signed by Huang Sam MD 01/02/2020 03:56 P
--- NOTE | 2020-01-01 15:02 | REP ---
Bilateral lower extremity arterial Doppler ultrasound: History: Peripheral vascular disease. History of left endarterectomy. Atherosclerosis and intermittent claudication. Findings: Ankle brachial indices are 0.92 on the right and 0.84 on the left. Moderate to severe plaquing is observed diffusely and bilaterally. Monophasic waveforms are noted in the left lower extremity distal to the distal superficial femoral artery and in the right lower extremity at and distal to the tibioperoneal trunk. Multilevel stenoses are seen bilaterally in the superficial femoral and profunda femoral arteries. The distal superficial femoral artery on the left is occluded with reconstituted and reversed flow. There is some postoperative seen surrounding the common femoral artery on the left. Right lower extremity arterial Doppler velocity chart: CF A 87 cm/S Profunda 189 Proximal SFA 195 Mid SFA 63/102 Distal SFA 81/267 Popliteal 98 Proximal AT A 44 Tibioperoneal trunk 45 Proximal INSTRUCTIONAL [employer] TECHNICIAN 41 Distal INSTRUCTIONAL [employer]IA SERVICES TECHNICIAN 49 Distal AT A 44 Left lower extremity arterial Doppler velocity chart: CF A 81 cm/S Profunda 76 Proximal SFA 71/162 Mid SFA 96 Distal SFA occluded/81/140 revascularized flow Popliteal 72 Proximal AT A 30 Tibioperoneal trunk 37 Proximal INSTRUCTIONAL [employer] SERVICES TECHNICIAN 36 Distal INSTRUCTIONAL [employer]IA SERVICES TECHNICIAN 28 Distal AT A 30 Electronically Signed by Yamil Marcelino MD 01/01/2020 02:53 P
== END ==
LOC: M RAD 12:02
PROVIDERS: ATTEND Physician Assistant
DX: I70.213 Atherosclerosis of native arteries of extremities with intermittent claudication, bilateral legs (principal); I65.23 Occlusion and stenosis of bilateral carotid arteries

== ENCOUNTER → 2020-08-03 | Outpatient (CLI) | payer MEDICARE ==
--- NOTE | 2020-08-24 13:12 | REP ---
CAROTID DOPPLER ULTRASOUND CLINICAL: Atherosclerotic disease. COMPARISON: 01/01/2020. FINDINGS: Moderate mixed partially calcified atheromatous plaquing noted bilaterally, which somewhat limits evaluation due to associated posterior shadowing. Color images demonstrate relatively normal laminar flow without obvious appreciable narrowing or occlusion. Normal flow direction noted in the bilateral vertebral arteries. PEAK FLOW VELOCITY ANALYSIS RIGHT LEFT ICA PSV 63.5 cm/s 75.4 cm/s ICA EDV 18.9 cm/s 24.4 cm/s ECA PSV 76.2 cm/s 85.5 cm/s CCA PSV 116.9 cm/s 131.8 cm/s ICA/CCA RATIO 0.57 0.57 IMPRESSION: Moderate amounts of mixed atheromatous plaquing somewhat limiting examination. Based on set standards, no significant stenosis is appreciated. Findings fall within the less than 50% range bilaterally. MTDD
--- NOTE | 2020-08-24 13:13 | REP ---
BILATERAL LOWER EXTREMITY ARTERIAL ULTRASOUND CLINICAL: Peripheral vascular disease with history of occlusion. COMPARISON: 01/01/2020. TECHNIQUE: Real-time torres scale and color Doppler evaluation using linear high frequency transducer. FINDINGS: Right REGINA equals 0.8. Left REGINA equals 0.7. Extensive bilateral heavily calcified atheromatous plaquing noted throughout the lower extremities, similar to prior examination and somewhat limiting evaluation. Multiple segments of minimal stenosis noted bilaterally. The right lower extremity demonstrates essentially biphasic wave patterns to the level of the distal superficial femoral artery followed by monophasic wave patterns extending distally to the ankle without discrete area of occlusion, but with multiple short segments of stenosis. The left lower extremity demonstrates continued evidence for focal occlusion in the mid superficial femoral artery with subsequent revascularization distally and monophasic wave patterns beyond the level of occlusion, as well as biphasic wave patterns involving the common femoral artery through the proximal superficial femoral artery to the level of occlusion. Please refer to worksheet for detailed velocities. IMPRESSION: Extensive atherosclerotic changes as described above, relatively similar to prior examination. Short segments of bilateral stenosis noted, as well as focal area of occlusion in the left mid superficial femoral artery with subsequent downstream revascularization. MTDD
== END ==
LOC: M RAD 08:40
PROVIDERS: ATTEND Physician Assistant
DX: I65.23 Occlusion and stenosis of bilateral carotid arteries (principal); I70.213 Atherosclerosis of native arteries of extremities with intermittent claudication, bilateral legs

== ENCOUNTER → 2020-09-13 | Outpatient (CLI) | payer MEDICARE ==
[~2020-09-13] MED LIST changes: +ISOVUE-300 61% 50ML VIAL As Ordered ONE; +LIDOCAINE 1% MDV 20ML VIAL As Ordered ONE; +MIDAZOLAM INJ 2MG/2ML VIAL (J2250 PER 1MG) As Ordered ONE; +fentaNYL 100 MCG/2 ML INJECTION (J3010) As Ordered ONE
[2020-09-13 07:08] LABS: HEMATOCRIT 36.1 % (36.0-47.0); HEMOGLOBIN 11.6 g/dl (12.0-15.5); MEAN CORPUSCULAR HEMOGLOBIN 30.4 pg (27.0-33.0); MEAN CORPUSCULAR HGB CONC 32.1 g/dl (32.0-36.5); MEAN CORPUSCULAR VOLUME 94.5 fl (80.0-96.0); PLATELET COUNT, AUTOMATED 151 10^3/uL (150-450); RED BLOOD COUNT 3.82 10^6/uL (4.00-5.40); WHITE BLOOD COUNT 7.6 10^3/uL (4.0-10.0)
[2020-09-13 07:20] LABS: INR 0.97; PROTHROMBIN TIME 13.1 SECONDS (12.5-14.3)
[2020-09-13 07:34] LABS: CALCIUM LEVEL 8.7 MG/DL (8.8-10.2); CREATININE FOR GFR 1.05 MG/DL (0.55-1.30); GLOMERULAR FILTRATION RATE 55.5 (>45); POTASSIUM SERUM 3.8 MEQ/L (3.5-5.1)
--- NOTE | 2020-09-13 08:40 | ROOPDOC ---
[facility] Report Of Operation Report of Operation DATE OF PROCEDURE: 09/13/20 PREPROCEDURE DIAGNOSES: Atherosclerosis of the eklutna arteries with worsening lifestyle limiting claudication left lower extremity POSTPROCEDURE DIAGNOSES: Same PROCEDURE: 1. Ultrasound-guided access right common femoral artery 2. Aortoiliofemoral arteriogram 3. Selection left superficial femoral artery and left lower extremity runoff 4. Attempt across chronic total occlusion left superficial femoral artery, aborted 5. Mynx closure right common femoral artery SURGEON: Ariel Urena MD ANESTHESIA: Local anesthesia 9 mL lidocaine. Moderate intravenous conscious sedation was supervised by Dr. Urena. The patient was independently monitored by registered nurse assigned at the Department of radiology using automated blood pressure, EKG, and pulse oximetry. The detailed sedation record is permanently stored in the hospital information system. The following is a brief sedation record: Start time 07:41, stop time 08:03, Versed 1 mg IV, fentanyl 50 g IV. CONTRAST: 30 mL Isovue-300 INDICATION FOR PROCEDURE: This is a very pleasant 70-year-old patient with long- standing peripheral vascular disease, status post left femoral endarterectomy by another provider, who returns to clinic for follow-up with worsening claudication in the left lower extremity. Initially, we are managing the patient with a walking program to improve collateral circulation, but since her last lower extremity duplex ultrasound imaging, she says her claudication has worsened. The distance she can ambulate shorter, her recovery time is longer, and this is affecting her ability to do her daily activities. Risks benefits and alternatives to an arteriogram and potential intervention for the left lower extremity were explained to the patient and she is agreeable to proceed. Informed consent was obtained. INTERPRETATION: 1. The distal aorta is calcified and ectatic but widely patent. The right common iliac artery appears to have focal 20% stenosis near the origin of the vessel, but this does not appear flow-limiting. Distal to this, the common iliac artery on the right is widely patent with good runoff into the hypogastric and external iliac artery. There is significant calcium noted in the right common femoral artery. On the left, the common iliac artery hypogastric and external iliac artery are calcified patent. No flow-limiting stenoses are noted. There is some ectasia in the area of endarterectomy at the distal left external iliac artery and common femoral artery, but overall they are widely patent with excellent flow into the left profunda. 2. The runoff on the left lower extremity is mostly through collaterals from the profunda and the proximal superficial femoral artery. The patient has extensive collaterals, but her SFA is diminutive and stenotic, occluding approximately 6 cm from the origin and reconstituting at the proximal popliteal artery distal to Hany's canal through extensive collaterals. There is a large collateral coming off the SFA at the area of occlusion. The left popliteal artery appears widely patent with no flow-limiting stenoses, with 3 vessel runoff to the foot through the anterior tibial artery, peroneal artery and posterior tibial artery. 3. We attempted to cross the occlusion in the left superficial femoral artery, but were unable to get through the heavy calcified dense plaque area are wire and catheters continued to select the large collateral at the occlusion rather than cross through the heavy plaque. Quit contrast injection in the area after attempting to cross showed there was no extravasation after our attempts. REPORT OF OPERATION: The patient was brought to the angiographic suite in stable condition. Her bilateral groins were prepped and draped in a sterile fashion. A timeout was performed. Sedation was administered without complication. Local anesthesia was administered to the skin and subcutaneous tissue over the right common femoral artery. Ultrasound was used to gain access to the artery under ultrasound guidance. A wire was passed through this access and the needle was removed. A 4 Malagasy glide sheath was placed and flushed with saline. Through this access, a Glidewire and flushing catheter were advanced into the distal aorta. Aortoiliofemoral arteriograms were performed. Please see interpretation above. We then went up and over the bifurcation with a Glidewire and the flushin g catheter. We selected the left common femoral and superficial femoral artery. Left lower extremity runoff was performed. Please see interpretation above. We then exchange the sheath over the wire for a 5 Malagasy sheath and flushed sheath with saline. A Dickinson catheter was advanced over the wire and we spent considerable time trying to cross through the occlusion in the left superficial femoral artery. Despite our best efforts, we were not able to cross. Quick contrast injection within the left superficial femoral artery confirmed there was no extravasation after our attempts to get across the occlusion and that the large collateral at the occlusion was still widely patent. We then removed the wire and catheter and deployed a Mynx closure device at the right common femoral artery with good hemostasis. Pressure was held for 5 minutes and the patient was taken to recovery in stable condition. She tolerated the procedure and the sedation well. ESTIMATED BLOOD LOSS: Approximately 5 mL. COMPLICATIONS: None. PLAN: The patient can resume her Plavix tomorrow. She can resume her home medications and diet. We encourage her to continue with ambulation to continue to build up her collateral circulation. We will see her back in clinic to check her groin access site, and at that time we will discuss with her whether or not she feels she can continue with an exercise program, or if since her cl audication is worsening, if she would prefer to pursue a left lower extremity bypass. If she would like to proceed with bypass, she will need bilateral lower extremity greater saphenous vein mapping to determine if we could proceed with the vein bypass versus nonautologous conduit. We appreciate the opportunity to participate in the care of this patient. ARIEL URENA MD Sep 13, 2020 08:40
[2020-09-13 12:00] VITALS: BP 114/62
== END ==
LOC: M IRPRO 06:26
PROVIDERS: ATTEND Surgery Vascular Surgery
DX: I70.212 Atherosclerosis of native arteries of extremities with intermittent claudication, left leg (principal); I70.92 Chronic total occlusion of artery of the extremities; E11.9 Type 2 diabetes mellitus without complications; E78.00 Pure hypercholesterolemia, unspecified; I10 Essential (primary) hypertension; I35.0 Nonrheumatic aortic (valve) stenosis; I65.23 Occlusion and stenosis of bilateral carotid arteries; Z79.01 Long term (current) use of anticoagulants; Z79.82 Long term (current) use of aspirin; Z79.899 Other long term (current) drug therapy; Z87.891 Personal history of nicotine dependence; Z88.0 Allergy status to penicillin
CPT/HCPCS: 36247; 75710; 80048; 85027; 85610; 99152; C1760; C1769; C1887; C1894; G0269; J1644; J2250; J3010; Q9967

== ENCOUNTER → 2020-09-29 | Outpatient (CLI) | payer MEDICARE ==
[~2020-09-29] MED LIST changes: -ISOVUE-300 61% 50ML VIAL As Ordered ONE; -LIDOCAINE 1% MDV 20ML VIAL As Ordered ONE; -MIDAZOLAM INJ 2MG/2ML VIAL (J2250 PER 1MG) As Ordered ONE; -fentaNYL 100 MCG/2 ML INJECTION (J3010) As Ordered ONE
--- NOTE | 2020-09-29 11:13 | REP ---
INDICATION: ATHSCL BU[place]LAND ART OF EXTRM UNILATERAL MAIN REG COMPARISON: None. TECHNIQUE: Real time compression and duplex Doppler interrogation of the left lower extremity deep venous system is performed. FINDINGS: The left common femoral, superficial femoral and popliteal veins are fully compressible with transducer pressure and demonstrate normal spontaneous and phasic flow, without evidence of deep venous thrombosis. There is no thrombus in the greater saphenous vein. Measurements are obtained of the greater saphenous vein for possible bypass graft. Proximal greater saphenous vein measures 5 mm, the upper thigh 4 mm, mid thigh 3 mm and distal thigh 4 mm. At the level of the knee joint and in the proximal calf it measures 3 mm. IMPRESSION: No evidence of deep venous thrombosis of the left lower extremity femoral popliteal venous system. Greater saphenous vein measurements given above. <Electronically signed by Huang Sam > 09/29/20 [id number]
== END ==
LOC: M RAD 09:14
PROVIDERS: ATTEND Physician Assistant
DX: I70.213 Atherosclerosis of native arteries of extremities with intermittent claudication, bilateral legs (principal)

== ENCOUNTER → 2020-12-14 | Outpatient (CLI) | payer MEDICARE ==
[~2020-12-14] MED LIST changes: -LISI-542 PO; +LISI-898 PO; +VITMTA PO
--- NOTE | 2020-12-14 15:53 | REP ---
INDICATION: S/P FALL ? BLEED. COMPARISON: Comparison head CT study November 21, 2017.. TECHNIQUE: Helical scanning is acquired. 5 mm axial images were reformatted. Coronal MPR images were generated. FINDINGS: Bone window settings demonstrate an intact bony calvarium. There is no evidence of skull fracture or incidental bony calvarial lesion. The visualized paranasal sinuses appear clear. No intraorbital abnormality is seen. On soft tissue window setting images; the lateral, third, and fourth ventricles are normal in size and position. Sam-white differentiation pattern is normal above and below the tentorium. There are is no evidence of intracranial hemorrhage. No mass, edema, infarction, or midline shift is seen. No extra-axial fluid collection is appreciated. There is a small right frontal scalp hematoma. There is punctate physiologic calcification in the basal ganglia bilaterally. Mild small vessel changes are noted. There is minimal generalized volume loss. Vascular calcification is noted in the distal carotid arteries. IMPRESSION: Vascular calcification mild generalized volume loss. Small scalp hematoma in the right frontal region. No skull fracture or acute intracranial abnormality.. <Electronically signed by David Marcelino > 12/14/20 [id number]
== END ==
LOC: M RAD 14:03
PROVIDERS: ATTEND Nurse Practitioner Family
DX: S06.0X0A Concussion without loss of consciousness, initial encounter (principal); X58.XXXA Exposure to other specified factors, initial encounter; Y92.9 Unspecified place or not applicable

== ENCOUNTER 2020-12-27 10:00 | Inpatient (IN) | payer MEDICARE ==
--- NOTE | 2020-12-24 15:11 | HPEPDOC ---
[facility] Medical History & Physical Date of Admission Jan 10, 2021 Date of Service: Jan 10, 2021 History and Physical Vascular surgery. Dr. Urena HISTORY OF PRESENT ILLNESS: The patient is a 70-year-old female with history of atherosclerosis of nikolai arteries and occlusion of left SFA with worsening claudication symptoms. Recommendation as per Dr. Urena is to proceed with left femoral to above-knee popliteal bypass with in situ vein versus PTFE graft. Also please see complete note from 10/18/[address] Urena. PAST MEDICAL HISTORY: PAD NIDDM Hypertension Dyslipidemia Aortic stenosis CAD/cardiac stent 2 2014 PAST SURGICAL HISTORY: 1985 Cholecystectomy 2004 Right carpal Tunnel release 2007 Angiogram lower extremities Left femoral endarterectomy June 2019 SOCIAL HISTORY: Former smoker FAMILY HISTORY: Father: , CAD Mother: Diabetes, hypertension, CAD ALLERGIES: Please see below. REVIEW OF SYSTEMS: As noted in HPI otherwise 10 point review of systems is reviewed and unremarkable. HOME MEDICATIONS: Please see below. PHYSICAL EXAMINATION: Const: Appears medically stable. No signs of apparent distress present. Head/Face: Normal on inspection. ENMT: Tympanic membranes: intact. External nose WNL. Neck: Supple, no carotid bruits present Resp: No wheezing. Clear to auscultation bilaterally. CV: Rate is regular. Rhythm is regular. Abdomen: Bowel sounds are positive. Abdomen is soft, nontender, and no ndistended. Lymph: No palpable or visible regional lymphadenopathy. Musculo:Gait steady, distal pulses palpable right lower extremity, nonpalpable left lower extremity. Monophasic signals present DP and PT left lower extremity. No ulcers or wounds are noted. Skin:No rashes or lesions Neuro:Alert and oriented x3, moves all extremities equally, no focal neurologic deficits noted. Psych: Pleasant and cooperative Vein mapping left lower extremity 09/29/20 ATHSCL HABEMATOLEL ART OF EXTRM UNILATERAL MAIN REG FINDINGS: The left common femoral, superficial femoral and popliteal veins are fully compressible with transducer pressure and demonstrate normal spontaneous and phasic flow, without evidence of deep venous thrombosis. There is no thrombus in the greater saphenous vein. Measurements are obtained of the greater saphenous vein for possible bypass graft. Proximal greater saphenous vein measures 5 mm, the upper thigh 4 mm, mid thigh 3 mm and distal thigh 4 mm. At the level of the knee joint and in the proximal calf it measures 3 mm. IMPRESSION: No evidence of deep venous thrombosis of the left lower extremity femoral popliteal venous system. Greater saphenous vein measurements given above. <Electronically signed by Huang Sam > 09/29/20 1110 ASSESSMENT/PLAN: 1. The patient is a 70-year-old female with atherosclerosis of nikolai vessels of lower extremities with arteriogram imaging indicating left SFA occlusion not amenable to endovascular intervention with worsening claudication symptoms. Plan as discussed with Dr. Urena is to proceed with left femoral to above-knee popliteal bypass with in situ vein versus PTFE. Left lower extremity vein mapping as above. Informed consent is obtained and placed with the chart. Transfusion consent is obtained and placed with the chart. Medical and cardiac clearance with stress test has been requested and will be placed with the chart. The patient is advised not to hold aspirin prior to the procedure. The patient is advised to hold Plavix 5 days prior to the procedure. Continue statin. NPO IV fluids as per anesthesia Admission labs to include CBC, BMP, INR, PTT, type and screen. The patient is allergic to penicillin. BMI 37.8. Vancomycin 2 g IV preoperatively. Vital Signs Admission vital signs pending. Laboratory Data Labs 24H Admission labs pending. Home Medications Scheduled Allopurinol (Allopurinol) 100 Mg Tablet, 100 MG PO DAILY Aspirin (Aspirin EC) 81 Mg Tablet.dr, 81 MG PO DAILY Atorvastatin Calcium (Atorvastatin Calcium) 40 Mg Tablet, 40 MG PO DAILY Clopidogrel Bisulfate (Plavix) 75 Mg Tablet, 75 MG PO DAILY Glimepiride (Glimepiride) 2 Mg Tablet, 2 MG PO DAILY Lisinopril (Lisinopril) 5 Mg Tablet, 5 MG PO DAILY Metoprolol Succinate (Metoprolol Succinate) 25 Mg Tab.er.24h, 12.5 MG PO DAILY Multivitamin (Multivitamins) 1 Each Capsule, 1 CAP PO DAILY Sitagliptin Phos/Metformin HCl (Janumet 50-500 mg Tablet) 1 Each Tablet, 50-500 MG PO BID Scheduled PRN Albuterol Sulfate (Ventolin Hfa) 18 Gm Hfa.aer.ad, Q4-6HP PRN for SOB/WHEEZING Allergies Coded Allergies: Penicillins (Verified Allergy, Intermediate, hives nausea, 07/01/19) A-FIB/CHADSVASC A-FIB History Current/History of A-Fib/PAF?: No Jacqui Toribio Dec 24, 2020 15:11
[~2020-12-27] VITALS: Ht 167.6 cm; Wt 111.9 kg
[~2020-12-27 10:00] MED LIST changes: -VITMTA PO
[2020-12-27] MEDS ORDERED: VITMTA PO (12:57)
[2021-01-10] MEDS ORDERED: LIDOCAINE 1% MDV 20ML VIAL SQ PRN (06:00)
[2021-01-10] MEDS ORDERED: LR 1,000 ML IV ONE (06:00)
--- OUTSIDE RECORDS SUMMARY | 2021-01-10 08:44 | CCD ---
Continuity of Care Document (CCD) Created on: 12/13/2020 Kajal Jay External Reference #: [id number] : [id number] Sex: Female Author Author Kajal [employer] Organization Unknown Address [address] [place] [address] Phone [phone] Care Team Providers Care Paralegal Specialist Name Role Phone Amish Estrada MD AUTM [phone] [employer] - Nutrition, Education AUTM Problems Active Problems Provider Date Type II diabetes mellitus uncontrolled Jesica Saravia M .D. Onset: 07/14/2011 Mixed hyperlipidemia Jesica Saravia M.D. Onset: 011 Type II diabetes mellitus uncontrolled Jesica Saravia M .D. Onset: 10/15/2015 Social History Type Date Description Comments Sex Unknown Tobacco Use Start: Unknown End: Unknown denies cigarette use Tobacco Use Start: Unknown Never Used Smokeless Tobacco ETOH Use Rarely consumes alcohol Tobacco Use Start: Unknown End: Unknown Patient is a former smoker quit at age 39. Started at age 20- 1 to 1/2 ppd Recreational Drug Use Denies Drug Use Smoking Status Reviewed: 12/13/20 Patient is a former smoker qu it at age 39. Started at age 20- 1 to 1-/2 ppd Exercise Type/Frequency Exercises sporadically o nce a week Tattoo/Piercing Pierced ears Sun Exposure Uses sunscreen Seat Belt/Car Seat Always uses seat belt Bike Helmet Never Does not bike ri de Smoke Alarms Yes Smoke Alarms Carbon Monoxide Detector: Yes Allergies, Adverse Reactions, Alerts Active Allergies Reaction Severity Comments Date Penicillin 09/24/2002 Medications Active Medications SIG Qnty Indications Ordering Provide r Date Ventolin HFA 108(90Base) mcg/Act A erosol Inhale 2 Puffs By Mouth Every 4 Hours as Needed 18units Isa Capellan FNP 11/01/2020 Accu-Chek Clip For Pump Skin Misc use once a day for testing blood sugar 102units Tenzin Saravia M.D. 08/01/2019 Glimepiride 2mg Tablets Take One-Half Tablet By Mouth Every Day 90tabs E11.65 Jesica Saravia M. D. 02/11/2019 Accuchek Glucometer Machine dx e11.9 1units Jesica Saravia M.D. 05/22/2018 Allopurinol 100mg Tablets Take One Tablet By Mouth Every Day 90tabs Jesica Saravia M.D. 01/26 Janumet 50-500mg Tablets Take One Tablet By Mouth Twice A Day 180tabs E11.65 Jesica Saravia M.D. Nystatin [id number]/GM Powder Apply To Affected Area Three Times A Day as Needed 15units B35.4 Isa Lindsay ch, FNP 07/15/2010 Lisinopril 5mg Tablets take one tablet by mouth every day 90tabs R03.0 Jesica Saravia M.D. 006 Lancets [facility] so ftclix, use as directed to test bs once a day 100units E11.65 Jesica Saravia M.D. 11/27 Toprol XL 25mg Tablets ER 24HR 11/27 tab by mouth every day Unknown Lipitor 40mg Tablets 1 by mouth every day Unknown Plavix 75mg Tablets 1 by mouth every day *hold 4 days prior to surgery* Unknown 0 Aspirin 81mg Tablets 1 by mouth every day *hold 4 days before surgery* Unknown Multivitamin Women 50+ 50+ Tablets one po qd Unknown Immunizations CPT Code Status Date Vaccine Lot # 56799 Given 08/10/2020 Influenza Virus Vaccine, Quadrivalent,age 3 and up,multidose vial [id number] 71986 Given 09/11/2019 Influenza Virus Vaccine, Quadrivalent,age 3 and up,multidose vial [id number] 80744 Given 08/21/2018 Influenza Virus Vaccine, Quadrivalent,age 3 and up,multidose vial [id number] Given 05/22/2018 Pneumococcal Vaccine [id number] 69715 Given 05/04/2017 Prevnar 13 For Adults [id number] 20883 Given 09/29/2015 Influenza Vaccination [id number] Refused 11/16/2017 Boostrix (Tdap) Tetnus, Diphtheria Toxoids & Acellular Pertussis Vital Signs Date Vital Result Comment 12/13/2020 2:34pm BP Systolic 188 mmHg BP Diastolic 99 mmHg BP Systolic Recheck 139 mmHg BP Diastolic Recheck 85 mmHg Heart Rate 100 /min Body Temperature 97.6 F Respiratory Rate 15 /min Height 66 inches 5'6" Weight 245.50 lb O2 % BldC Oximetry 98 % Peak Expiratory Flow Rate 344 Estimated Peak Flow Rate [place] Body Weight 130 lb BMI (Body Mass Index) 39.6 kg/m2 10/13/2020 10:53am BP Systolic 186 mmHg BP Diastolic 93 mmHg BP Systolic Recheck 177 mmHg BP Diastolic Recheck 82 mmHg Heart Rate 84 /min Body Temperature 97.2 F Respiratory Rate 17 /min Height 66 inches 5'6" Weight 251.25 lb O2 % BldC Oximetry 98 % Peak Expiratory Flow Rate 344 Estimated Peak Flow Rate [place] Body Weight 130 lb BMI (Body Mass Index) 40.5 kg/m2 Results Test Acquired Date Facility Test Result H/L Range Note Laboratory test finding 09/13/2020 [place] [address] [phone] Bedside Glucose 143 mg/dL High 80-115 Laboratory test finding 09/13/2020 [place] [address] [phone] Bedside Glucose 135 mg/dL High 80-115 Complete Blood Count 09/13/2020 [place] [address] [phone] White Blood Count 7.6 10 Normal 4.0-10.0 Red Blood Count 3.82 10 Low 4.00-5.40 Hemoglobin 11.6 g/dL Low 12.0-15.5 Hematocrit 36.1 % Normal 36.0-47.0 Mean Corpuscular Volume 94.5 fl Normal 80.0-96.0 Mean Corpuscular Hemoglobin 30.4 pg Normal 27.0-33.0 Mean Corpuscular HGB Conc 32.1 g/dL Normal 32.0-36.5 Red Cell Distribution Width 14.7 % High 11.5-14.5 Platelet Count, Automated 151 10 Normal 150-450 Nucleated Red Blood Cell % 0.0 % Normal 0-0 Prothrombin Time/Inr 09/13/2020 [place] [address] [phone] Prothrombin Time 13.1 seconds Normal 12.5-14.3 Inr 0.97 Normal 1 Basic Metabolic Profile 09/13/2020 Patient Service [place] [id number] [phone] Glucose, Fasting 136 mg/dL High 70-100 Blood Urea Nitrogen 16 mg/dL Normal 7-18 Creatinine For GFR 1.05 mg/dL Normal 0.55-1.30 Glomerular Filtration Rate 55.5 Normal >45 2 Sodium Level 140 mEq/L Normal 136-145 Potassium Serum 3.8 mEq/L Normal 3.5-5.1 Chloride Level 106 mEq/L Normal 98-107 Carbon Dioxide Level 27 mEq/L Normal 21-32 Anion Gap 7 mEq/L Low 8-16 Calcium Level 8.7 mg/dL Low 8.8-10.2 Hemoglobin A1c 08/04/2020 [facility] [address] [place] [address] [phone] Hemoglobin A1c 6.7 % High 4.8-5.6 3, 4 Microalbumin Random 08/04/2020 [facility] [address] [place] [address] [phone] Albumin, Urine 13.4 ug/mL Not Estab. Metabolic Panel (14), Comprehensive 08/04/2020 [facility] [address] [place] [address] [phone] Glucose 139 mg/dL High 65-99 BUN 18 mg/dL 8-27 Creatinine 0.94 mg/dL 0.57-1.00 eGFR If NonAfricn Am 63 mL/min/1.73 >59 eGFR If Africn Am 72 mL/min/1.73 >59 BUN/Creatinine Ratio 19 12-28 Sodium 140 mmol/L 134-144 Potassium 4.5 mmol/L 3.5-5.2 Chloride 104 mmol/L 96-106 Carbon Dioxide, Total 24 mmol/L 20-29 Calcium 9.6 mg/dL 8.7-10.3 Protein, Total 7.1 g/dL 6.0-8.5 Albumin 4.5 g/dL 3.8-4.8 Globulin, Total 2.6 g/dL 1.5-4.5 A/G Ratio 1.7 1.2-2.2 Bilirubin, Total 0.4 mg/dL 0.0-1.2 Alkaline Phosphatase 57 IU/L 39-117 Ast (Sgot) 29 IU/L 0-40 Alt (SGPT) 23 IU/L 0-32 1 THERAPUTIC HUMAN INR VALUES INDICATIONS NORMAL RANGES PROPHYLAXIS/TREATMENT OF: VENOUS THROMBOSIS 2.0-3.0 PULMONARY EMBOLISM 2.0-3.0 PREVENTION OF SYSTEMIC EMBOLISM FROM: TISSUE HEART VALVES 2.0-3.0 ACUTE MYOCARDIAL INFARCTION 2.0-3.0 VALVULAR HEART DISEASE 2.0-3.0 ATRIAL FIBRILLATION 2.0-3.0 MECHANICAL VALVES(HIGH RISK) 2.5-3.5 RECURRENT MYOCARDIAL INFARCTION 2.5-3.5 2 Units are mL/min/1.73 m2 Chronic Kidney Disease Staging per NKF: Stage I & II GFR >=60 Normal to Mildly Decreased Stage III GFR 30-59 Moderately Decreased Stage IV GFR 15-29 Severely Decreased Stage V GFR <15 Very Little GFR Left ESRD GFR <15 on NOVELTY [employer]IPPER 3 A courtesy copy of this repo rt has been sent to the patient, , [facility] 4 Prediabetes: 5.7 - 6.4 Diabetes: >6.4 Glycemic control for adults with diabetes: <7.0 Procedures Date Code Description Status 08/10/2020 154888291 Diabetic Foot Exam Completed 02/11/2016 [id number] Mammogram Completed 02/11/2016 [id number] Bone Mineral Density Test Comple [employer] Description No Information Available Encounters Type Date Location Provider Dx Diagnosis Office Visit 12/13/2020 2:30p Main Office Isa Capellan FNP Z01.8 18 Encounter for other preprocedural examination S06.0x0A Concussion without loss of c onsciousness, initial encounter I70.212 Ath[place]cl [place] arteries of ex trm w intrmt [place], left leg E11.40 Type 2 diabetes mellitus wit h diabetic neuropathy, unsp I25.10 Athscl heart disease of [place] coronary artery w/o ang pctrs I11.0 Hypertensive heart disease w ith heart failure E78.2 Mixed hyperlipidemia Office Visit 10/13/2020 10:45a Main Office Jesica Saravia M.D. E 66.01 Morbid (severe) obesity due to excess calories E11.40 Type 2 diabetes mellitus wit h diabetic neuropathy, unsp I73.9 Peripheral vascular disease, unspecified I25.10 Athscl heart disease of [place] coronary artery w/o ang pctrs I11.0 Hypertensive heart disease w ith heart failure E78.2 Mixed hyperlipidemia Z00.00 Encntr for general adult med ical exam w/o abnormal findings Office Visit 08/10/2020 10:45a Main Office Isa Capellan FNP E11.4 0 Type 2 diabetes mellitus with diabetic neuropathy, unsp I73.9 Peripheral vascular disease, unspecified I25.10 Athscl heart disease of [place] coronary artery w/o ang pctrs I11.0 Hypertensive heart disease w ith heart failure E78.2 Mixed hyperlipidemia Z23 Encounter for immunization Assessments Date Code Description Provider 12/13/2020 Z01.818 Encounter for other preprocedura l examination Isa Capellan, [facility] 12/13/2020 S06.0x0A Concussion without loss of consc iousness, initial encounter Isa Capellan [facility] 12/13/2020 I70.212 Atherosclerosis of n ative arteries of extremities with intermittent claudication, left leg Isa Capellan [facility] 12/13/2020 E11.40 Type 2 diabetes yousuf itus with diabetic neuropathy, unspecified Isa Capellan [facility] 12/13/2020 I25.10 Atherosclerotic heart disease of [place] coronary artery with Isa Capellan [facility] 12/13/2020 I11.0 Hypertensive heart disease with heart failure Isa Capellan [facility] 12/13/2020 E78.2 Mixed hyperlipidemia Arianna Capellan [facility] 10/13/2020 E66.01 Morbid (severe) obesity due to e xcess calories Jesica Saravia M.D. 10/13/2020 E11.40 Type 2 diabetes yousuf itus with diabetic neuropathy, unspecified Jesica Saravia M.D. 10/13/2020 I73.9 Peripheral vascular disease, uns pecified Jesica Saravia M.D. 10/13/2020 I25.10 Atherosclerotic heart disease of [place] coronary artery with Jesica Saravia M.D. 10/13/2020 I11.0 Hypertensive heart disease with heart failure Jesica Saravia M.D. 10/13/2020 E78.2 Mixed hyperlipidemia Ashley Saravia M.D. 10/13/2020 Z00.00 Encounter for genera l adult medical examination without abnormal findings Jesica Saravia M.D. 08/10/2020 E11.40 Type 2 diabetes yousuf itus with diabetic neuropathy, unspecified Isa Capellan, [employer] 08/10/2020 I73.9 Peripheral vascular disease, uns pecified Isa Caepllan, [employer] 08/10/2020 I25.10 Atherosclerotic heart disease of [place] coronary artery with Isa Capellan, [employer] 08/10/2020 I11.0 Hypertensive heart disease with heart failure Isa Capellan FNP 08/10/2020 E78.2 Mixed hyperlipidemia Arianna Capellan, CAR[employer] 08/10/2020 Z23 Encounter for immunization Isa Auguste FNP Plan of Treatment Future Appointment(s):* 02/07/2021 11:30 am - Isa Capellan FNP at Main Office 12/13/2020 - Isa Capellan FNP* Z01.818 Encounter for other preprocedural examination* Comments:* Patient requires cardiac evaluation and clearance prior to proceeding with the planned surgery - this is scheduled for 12/15/20. Patient did fall and strike her head, will get a CT to ensure there is no bleed. Labs ordered for pre-op review. Pending negative results of CT and stable labs patient is medically optimized for the planned procedure. * S06.0x0A Concussion without loss of consciousness, initial encounter* Comments:* symptoms have resolved however patient is on ASA and plavix. Will get a CT to rule out possibility of a bleed. * I70.212 Atherosclerosis of [place] arteries of extremities with intermittent claudication, left leg* Comments:* scheduled for popliteal bypass * E11.40 Type 2 diabetes mellitus with diabetic neuropathy, unspecified* Comments:* controlled, continue medications * I25.10 Atherosclerotic heart disease of [place] coronary artery with* Comments: * follows with cardiology * I11.0 Hypertensive heart disease with heart failure* Comments:* follows with cardiology * Recommendations:* take toprol and lisinopril with a small sip of water on the morning of surgery unless otherwise directed by anesthesia or surgeon. * E78.2 Mixed hyperlipidemia* Comments:* continue statin Functional Status Functional Condition Comment Date Status Bifocal glasses Active Independent with all ADL's Activ e Mental Status Mental Condition Comment Date Status None Active Referrals Description No Information Available
--- OUTSIDE RECORDS SUMMARY | 2021-01-10 08:44 | CCD | Continuity of Care Document ---
Author Author Kajal [employer] Organization Unknown Address [address] [place] [address] Phone [phone] Care Team Providers Care Feller Buncher Operator Name Role Phone Amish Estrada MD [facility] [phone] [employer] - Nutrition, Education AUTM [...] Day 180tabs E11.65 Jesica Saravia M.D. Nystatin 918824Juar/GM Powder Apply To Affected Area Three Times A Day as Needed 15units B35.4 Isa Lindsay ch, FNP 07/15/2010 Lisinopril 5mg Tablets take one tablet by mouth every day 90tabs R03.0 Jesica Saravia M.D. 006 Lancets [facility] so ftclix, use as directed to test [...] CPT Code Status Date Vaccine Lot # 51202 Given 08/10/2020 Influenza Virus Vaccine, Quadrivalent,age 3 and up,multidose vial [id number] 05047 Given 09/11/2019 Influenza Virus Vaccine, Quadrivalent,age 3 and up,multidose vial [id number] 67163 Given 08/21/2018 Influenza Virus Vaccine, Quadrivalent,age 3 and up,multidose vial [id number] 05234 Given 05/22/2018 Pneumococcal Vaccine [id number] 57697 Given 05/04/2017 Prevnar 13 For Adults [id number] 48120 Given 09/29/2015 Influenza Vaccination [id number] Refused 11/16/2017 Boostrix (Tdap) Tetnus, Diphtheria Toxoids [...] Flow Rate 344 Estimated Peak Flow Rate [place] Body Weight 130 lb BMI (Body Mass [...] Flow Rate 344 Estimated Peak Flow Rate [place] Body Weight 130 lb BMI (Body Mass Index) 40.5 kg/m2 Results Test Acquired Date Facility Test Result H/L Range Note Laboratory test finding 09/13/2020 [place] [address] [phone] Bedside Glucose 143 mg/dL High 80-115 Laboratory test finding 09/13/2020 [place] [address] [phone] Bedside Glucose 135 mg/dL High 80-115 Complete Blood Count 09/13/2020 [place] [address] [phone] White Blood Count 7.6 10 Normal 4.0-10.0 [...] Normal 0-0 Prothrombin Time/Inr 09/13/2020 [place] [address] [phone] Prothrombin Time 13.1 seconds Normal 12.5-14.3 Inr 0.97 Normal 1 Basic Metabolic Profile 09/13/2020 Patient Service [place] [id number] [phone] Glucose, Fasting 136 mg/dL High 70-100 Blood [...] Low 8.8-10.2 Hemoglobin A1c 08/04/2020 [facility] [address] [place] [address] [phone] Hemoglobin A1c 6.7 % High 4.8-5.6 3, 4 Microalbumin Random 08/04/2020 [facility] [address] [place] [address] [phone] Albumin, Urine 13.4 ug/mL Not Estab. Metabolic Panel (14), Comprehensive 08/04/2020 [facility] [address] [place] [address] [phone] Glucose 139 mg/dL High 65-99 BUN 18 [...] Little GFR Left ESRD GFR <15 on [employer] 3 A courtesy copy of this repo rt has been sent to the patient, , [facility] 4 Prediabetes: 5.7 - 6.4 Diabetes: >6.4 Glycemic control for adults with diabetes: <7.0 Procedures Date Code Description Status 08/10/2020 [id number] Diabetic Foot Exam Completed 02/11/2016 [id number] Mammogram Completed 02/11/2016 141912426 Bone Mineral Density Test Comple Revegy Description No Information Available Encounters Type Date Location Provider Dx Diagnosis Office Visit 12/13/2020 2:30p Main Office Isa Capellan FNP Z01.8 18 Encounter for other preprocedural examination S06.0x0A Concussion without loss of c onsciousness, initial encounter I70.212 Athscl [place] arteries of ex trm w intrmt monica, [...] for other preprocedura l examination Isa Capellan, [facility] 12/13/2020 S06.0x0A Concussion without loss of consc iousness, initial encounter Isa Capellan [facility] 12/13/2020 I70.212 Atherosclerosis of n ative arteries of extremities with intermittent claudication, left leg Isa Capellan [facility] 12/13/2020 E11.40 Type 2 diabetes yousuf itus with diabetic neuropathy, unspecified Isa Capellan [facility] 12/13/2020 I25.10 Atherosclerotic heart disease of [place] coronary artery with Isa Capellan [facility] 12/13/2020 I11.0 Hypertensive heart disease with heart failure Isa Capellan [facility] 12/13/2020 E78.2 Mixed hyperlipidemia Arianna Capellan [facility] 10/13/2020 E66.01 Morbid (severe) obesity due to e xcess calories Jesica Saravia M.D. 10/13/2020 E11.40 Type 2 diabetes yousuf itus with diabetic neuropathy, unspecified Jesica Saravia M.D. 10/13/2020 I73.9 Peripheral vascular disease, uns pecified Jesica Saravia M.D. 10/13/2020 I25.10 Atherosclerotic heart disease of [place] coronary artery with Jesica Saravia M.D. 10/13/2020 I11.0 Hypertensive heart disease with heart failure Jesica Saravia M.D. 10/13/2020 E78.2 Mixed hyperlipidemia Ashley Saravia M.D. 10/13/2020 Z00.00 Encounter for genera l adult medical examination without abnormal findings Jesica Saravia M.D. 08/10/2020 E11.40 Type 2 diabetes yousuf itus with diabetic neuropathy, unspecified Isa Capellan, ENV[employer] SCIENCE INSTRUCTOR 08/10/2020 I73.9 Peripheral vascular disease, uns pecified Isa Capellan, ENVIRON[employer]AL SCIENCE INSTRUCTOR 08/10/2020 I25.10 Atherosclerotic heart disease of [place] coronary artery with Isa Capellan, CARMELLA 08/10/2020 [...] to rule out possibility of a bleed. 12/15/20 - CT reviewed, no acute intracranial abnormality * I70.212 Atherosclerosis of [place] arteries of extremities with intermittent claudication, left leg* Comments:* scheduled for popliteal bypass * E11.40 Type 2 diabetes mellitus with diabetic neuropathy, unspecified* Comments:* controlled, continue medications * I25.10 Atherosclerotic heart disease of [place] coronary artery with* Comments: * follows with [...]
--- OUTSIDE RECORDS SUMMARY | 2021-01-10 08:45 | CCD | Continuity of Care Document ---
Author Author Kajal BRODERICK M.D. Organization Unknown Address [address] [place] [address] Phone [phone] Care Team Providers Care Layout Operator Name Role Phone Amish Estrada MD AUTM [phone] [employer] - Nutrition, Education AUTM [phone] Problems Active Problems Provider Date Type II diabetes mellitus uncontrolled Jesica Broderick M .D. Onset: 07/14/2011 Mixed hyperlipidemia Jesica Broderick M.D. Onset: 011 Type II diabetes mellitus uncontrolled Jesica Broderick M .D. Onset: 10/15/2015 Social History Type [...] Use Denies Drug Use Smoking Status Reviewed: 08/10/20 Patient is a former smoker qu it [...] SIG Qnty Indications Ordering Provide r Date Accu-Chek Clip For Pump Skin Misc use once a day for testing blood sugar 102units Tenzin Broderick M.D. 08/01/2019 Glimepiride 2mg Tablets Take One-Half Tablet By Mouth Every Day 90tabs E11.65 Jesica Broderick M. D. 02/11/2019 Accuchek Glucometer Machine dx e11.9 1units Jesica Broderick M.D. 05/22/2018 Proair HFA 108(90Base) mcg/Act Aer osol inhale two puffs by mouth every 4 hours as needed 8.500gm Isa Capellan FNP 04/21/2016 Allopurinol 100mg Tablets Take One Tablet By Mouth Every Day 90tabs Jesica Broderick M.D. 01/26 Janumet 50-500mg Tablets Take One Tablet By Mouth Twice A Day 180tabs E11.65 Jesica Broderick M.D. Nystatin 387605Vxxi/GM Powder apply to affected area three times a day as needed 1Bottle B35.4 Isa Lindsay ch, FNP 07/15/2010 Lisinopril 5mg Tablets take one tablet by mouth every day 90tabs R03.0 Jesica Broderick M.D. 006 [facility] so ftclix, use as directed to test bs once a day 100units E11.65 Jesica Broderick M.D. 11/27 Toprol XL 25mg Tablets ER 24HR 11/27 tab by mouth every day Unknown Lipitor 40mg Tablets 1 by mouth every day Unknown Plavix 75mg Tablets 1 by mouth every day Unknown Aspirin 81mg Tablets 1 by mouth every day Unknown Multivitamin Women 50+ 50+ Tablets one po qd Unknown Immunizations CPT Code Status Date Vaccine Lot # 27649 Given 08/10/2020 Influenza Virus Vaccine, Quadrivalent,age 3 and up,multidose vial [id number] Given 09/11/2019 Influenza Virus Vaccine, Quadrivalent,age 3 and up,multidose vial [id number] 15818 Given 08/21/2018 Influenza Virus Vaccine, Quadrivalent,age 3 and up,multidose vial [id number] 40134 Given 05/22/2018 Pneumococcal Vaccine [id number] 44259 Given 05/04/2017 Prevnar 13 For Adults [id number] 02246 Given 09/29/2015 Influenza Vaccination [id number] Refused 11/16/2017 Boostrix (Tdap) Tetnus, Diphtheria Toxoids & Acellular Pertussis Vital Signs Date Vital Result Comment 10/13/2020 10:53am BP Systolic 186 mmHg BP Diastolic 93 mmHg BP Systolic Recheck 177 mmHg BP Diastolic Recheck 82 mmHg Heart Rate 84 /min Body Temperature 97.2 F Respiratory Rate 17 /min Height 66 inches 5'6" Weight 251.25 lb O2 % BldC Oximetry 98 % Peak Expiratory Flow Rate 344 Estimated Peak Flow Rate [place] Body Weight 130 lb BMI (Body Mass Index) 40.5 kg/m2 08/10/2020 10:48am BP Systolic 145 mmHg BP Diastolic 90 mmHg BP Systolic Recheck 155 mmHg BP Diastolic Recheck 78 mmHg Heart Rate 76 /min Body Temperature 97.6 F Respiratory Rate 17 /min Height 66 inches 5'6" Weight 242.38 lb O2 % BldC Oximetry 96 % Peak Expiratory Flow Rate 344 Estimated Peak Flow Rate [place] Body Weight 130 lb BMI (Body Mass Index) 39.1 kg/m2 Results Test Acquired Date Facility Test Result H/L Range Note Complete Blood Count 09/13/2020 [place] [address] [phone] White Blood Count 7.6 10 Normal 4.0-10.0 [...] Normal 0-0 Prothrombin Time/Inr 09/13/2020 Patient Service [place], [place] [id number] [phone] Prothrombin Time 13.1 seconds Normal 12.5-14.3 Inr 0.97 Normal 1 Basic Metabolic Profile 09/13/2020 Patient Service Center [facility] [place] [address] [phone] Glucose, Fasting 136 mg/dL High 70-100 Blood [...] mg/dL Low 8.8-10.2 Hemoglobin A1c 08/04/2020 [facility] [address] [facility], [address] [place], [place] [address] [phone] Hemoglobin A1c 6.7 % High 4.8-5.6 3, 4 Microalbumin Random 08/04/[address] [facility] [id number] [place] [address], [facility] [address] [place] [address] [phone] Albumin, Urine 13.4 ug/mL Not Estab. Metabolic Panel (14), Comprehensive 08/04/2020 [facility] [address] [facility], [address] [place], [place] [address] [phone] Glucose 139 mg/dL High 65-99 BUN 18 [...] Little GFR Left ESRD GFR <15 on ASSISTANT PROFESSOR OF HISTORY 3 A courtesy copy of this repo rt has been sent to the patient, , [facility] 4 Prediabetes: 5.7 - 6.4 Diabetes: >6.4 Glycemic control for adults with diabetes: <7.0 Procedures Date Code Description Status 08/10/2020 [id number] Diabetic Foot Exam Completed 02/11/2016 [id number] Mammogram Completed 02/11/2016 [id number] Bone Mineral Density Test Comple [employer] Description No Information Available Encounters Type Date Location Provider Dx Diagnosis Office Visit 10/13/2020 10:45a Main Office Jesica Broderick M.D. E 66.01 Morbid (severe) obesity due [...] E78.2 Mixed hyperlipidemia Z23 Encounter for immunization Office Visit 04/27/2020 3:15p Main Office Chayo Pyle PA-C E11.4 0 Type 2 diabetes mellitus with diabetic neuropathy, unsp I73.9 Peripheral vascular disease, unspecified I25.10 Athscl heart disease of [place] coronary artery w/o ang pctrs I11.0 Hypertensive heart disease w ith heart failure E78.2 Mixed hyperlipidemia Assessments Date Code Description Provider 10/13/2020 E66.01 Morbid (severe) obesity due to e xcess calories Jesica Broderick M.D. 10/13/2020 E11.40 Type 2 diabetes yousuf itus with diabetic neuropathy, unspecified Jesica Broderick M.D. 10/13/2020 I73.9 Peripheral vascular disease, uns pecified Jesica Broderick M.D. 10/13/2020 I25.10 Atherosclerotic heart disease of [place] coronary artery with Jesica Broderick M.D. 10/13/2020 I11.0 Hypertensive heart disease with heart failure Jesica Broderick M.D. 10/13/2020 E78.2 Mixed hyperlipidemia Ashley Broderick M.D. 10/13/2020 Z00.00 Encounter for [facility] adult medical examination without abnormal findings Jesica Broderick M.D. 08/10/2020 E11.40 Type 2 diabetes yousuf itus with diabetic neuropathy, unspecified Isa Capellan, [facility] 08/10/2020 I73.9 Peripheral vascular disease, uns pecified Isa Capellan, [facility] 08/10/2020 I25.10 Atherosclerotic heart disease of [place] coronary artery with Isa Capellan, [facility] 08/10/2020 I11.0 Hypertensive heart disease with heart failure Isa Capellan, [employer] 08/10/2020 E78.2 Mixed hyperlipidemia Arianna Capellan, [facility] 08/10/2020 Z23 Encounter for immunization PleIsa brown, LUMBER MARKER 04/27/2020 E11.40 Type 2 diabetes yousuf itus with diabetic neuropathy, unspecified Chayo Pyle PA-C 04/27/2020 I73.9 Peripheral vascular disease, uns pecified Chayo Pyle PA-C 04/27/2020 I25.10 Atherosclerotic heart disease of [place] coronary artery with Chayo Pyle PA-C 04/27/2020 I11.0 Hypertensive heart disease with heart failure Chayo Pyle PA-C 04/27/2020 E78.2 Mixed hyperlipidemia EdenilsonLatha NICKIE blum Plan of Treatment Future Appointment(s):* 02/07/2021 11:30 am - Isa Capellan FNP at Main Office 10/13/2020 - Jesica Broderick M.D.* E66.01 Morbid (severe) obesity due to excess calories* Follow up:* . * E11.40 Type 2 diabetes mellitus with diabetic neuropathy, unspecified* Comments:* well controlled, Focus on diet and exercise. * Follow up:* . 4 months * I73.9 Peripheral vascular disease, unspecified* Comments:* undergoing eval with vascular surgery. * I25.10 Atherosclerotic heart disease of [place] coronary artery with* Comments: * continue to follow with cardiology. * Follow up:* . * I11.0 Hypertensive heart disease with heart failure * E78.2 Mixed hyperlipidemia * Z00.00 Encounter for general adult medical examination without abnormal findings Goals 10/13/2020 - Jesica Broderick M.D.* E66.01 Morbid (severe) obesity due to excess calories* Focus on portion control and a balanced diet. Work to improve exercise and aim for 30 minutes of moderate intensity exercise 5 days a week. * Z00.00 Encounter for general adult medical examination without abnormal findings* Fall Risk Assessment done and strategies provided to minimize falls within the home. BMI is elevated. Work on improving diet, portion control and aim for 30 minutes of moderate intensity exercise at least 5 days a week. Functional Status Functional Condition Comment Date Status Bifocal glasses Active Independent with all ADL's Activ e Mental Status Mental Condition Comment Date Status None Active Referrals Description No Information Available
--- OUTSIDE RECORDS SUMMARY | 2021-01-10 08:45 | CCD | Continuity of Care Document ---
Author Organization Unknown Address Unknown Phone Unavailable Care Team Providers Care Gearman Name Role Phone Amish Estrada MD AUTM [phone] [employer] - Nutrition, Education AUTM [...] 39. Started at age 20- 1 to 1-1/2 ppd Recreational Drug Use Denies Drug Use Smoking Status Reviewed: 08/10/20 Patient is a former smoker qu it at age 39. Started at age 20- 1 to 1-1/2 ppd Exercise Type/Frequency Exercises sporadically o nce [...] Day 180tabs E11.65 Jesica Saravia M.D. Nystatin 995714Mpvc/GM Powder apply to affected area three times a day as needed 1Bottle B35.4 Isa Lindsay ch, [facility] 07/15/2010 Lisinopril 5mg Tablets take one tablet by mouth every day 90tabs R03.0 Jesica Saravia M.D. 006 [facility] so ftclix, use as directed to [...] CPT Code Status Date Vaccine Lot # 57235 Given 08/10/2020 Influenza Virus Vaccine, Quadrivalent,age 3 and up,multidose vial [id number] 12653 Given 09/11/2019 Influenza Virus Vaccine, Quadrivalent,age 3 and up,multidose vial [id number] 59361 Given 08/21/2018 Influenza Virus Vaccine, Quadrivalent,age 3 and up,multidose vial [id number] 45752 Given 05/22/2018 Pneumococcal Vaccine [id number] 55967 Given 05/04/2017 Prevnar 13 For Adults [id number] 25444 Given 09/29/2015 Influenza Vaccination [id number] Refused 11/16/2017 Boostrix (Tdap) Tetnus, Diphtheria Toxoids [...] Flow Rate 344 Estimated Peak Flow Rate [place] Body Weight 130 lb BMI (Body Mass [...] Flow Rate 344 Estimated Peak Flow Rate [place] Body Weight 130 lb BMI (Body Mass Index) 39.1 kg/m2 Results Test Acquired Date Facility Test Result H/L Range Note Laboratory test finding 09/13/2020 Patient Service [place], [place] [address] [phone] Bedside Glucose 143 mg/dL High 80-115 Laboratory test finding 09/13/2020 Patient Service [place], [place] [address] [phone] Bedside Glucose 135 mg/dL High 80-115 Complete Blood Count 09/13/2020 [place] [address] [phone] White Blood Count 7.6 10 Normal 4.0-10.0 [...] Normal 0-0 Prothrombin Time/Inr 09/13/2020 [place] [address] [phone] Prothrombin Time 13.1 seconds Normal 12.5-14.3 Inr 0.97 Normal 1 Basic Metabolic Profile 09/13/2020 [place] [address] [phone] Glucose, Fasting 136 mg/dL High 70-100 Blood [...] mg/dL Low 8.8-10.2 Hemoglobin A1c 08/04/2020 [facility] [address] [facility], [address] [place] [address] [phone] Hemoglobin A1c 6.7 % High 4.8-5.6 3, 4 Microalbumin Random 08/04/2020 [facility] [address] [facility], [address] [place] [address] [phone] Albumin, Urine 13.4 ug/mL Not Estab. Metabolic Panel (14), Comprehensive 08/04/2020 [facility] [address] [facility], [address] [place] [address] [phone] Glucose 139 mg/dL High 65-99 BUN 18 [...] Little GFR Left ESRD GFR <15 on ELIGIBILITY SPECIALIST 3 A courtesy copy of this repo rt has been sent to the patient, , [facility] 4 Prediabetes: 5.7 - 6.4 Diabetes: >6.4 Glycemic control for adults with diabetes: <7.0 Procedures Date Code Description Status 08/10/2020 [id number] Diabetic Foot Exam Completed 02/11/2016 [id number] Mammogram Completed 02/11/2016 [id number] Bone Mineral Density Test Comple [employer] Description No Information Available Encounters Type Date [...] for immunization Assessments Date Code Description Provider 10/13/2020 E66.01 Morbid (severe) obesity due to e xcess calories Jesica Saravia M.D. 10/13/2020 E11.40 Type 2 diabetes yousuf itus with diabetic neuropathy, unspecified Jesica Saravia M.D. 10/13/2020 I73.9 Peripheral vascular disease, uns pecified Jesica Saravia M.D. 10/13/2020 I25.10 Atherosclerotic heart disease of [place] coronary artery with Jesica Saravia M.D. 10/13/2020 I11.0 Hypertensive heart disease with heart failure Jesica Saravia M.D. 10/13/2020 E78.2 Mixed hyperlipidemia Ashley Saravia M.D. 10/13/2020 Z00.00 Encounter for [facility] adult medical examination without abnormal findings Jesica Saravia M.D. 08/10/2020 E11.40 Type 2 diabetes yousuf itus with diabetic neuropathy, unspecified Isa Capellan, CARME[employer] 08/10/2020 I73.9 Peripheral vascular disease, uns pecified Isa Capellan, CARMELLA 08/10/2020 I25.10 Atherosclerotic heart disease of [place] coronary artery with Isa Capellan FNP 08/10/2020 I11.0 Hypertensive heart disease with heart failure Isa Capellan FNP 08/10/2020 E78.2 Mixed hyperlipidemia Arianna Capellan FNP 08/10/2020 Z23 Encounter for immunization Isa Auguste FNP Plan of Treatment Future Appointment(s):* 12/13/2020 2:30 pm - Isa Capellan FNP at Main Office * 02/07/2021 11:30 am - Isa Capellan FNP at Main Office 10/13/2020 - Jesica Saravia M.D.* E66.01 Morbid (severe) obesity due to excess calories* Follow up:* . * E11.40 Type 2 diabetes mellitus with diabetic neuropathy, unspecified* Comments:* well controlled, Focus on diet and exercise. * Follow up:* . 4 months * I73.9 Peripheral vascular disease, unspecified* Comments:* undergoing eval with vascular surgery. * I25.10 Atherosclerotic heart disease of [place] coronary artery with* Comments: * continue to follow with cardiology. * Follow up:* . * I11.0 Hypertensive heart disease with heart failure * E78.2 Mixed hyperlipidemia * Z00.00 Encounter for general adult medical examination without abnormal findings Goals 10/13/2020 - Jesica Saravia M.D.* E66.01 Morbid (severe) obesity due to [...]
--- OUTSIDE RECORDS SUMMARY | 2021-01-10 08:45 | CCD | Continuity of Care Document ---
Author Author Kajal BRODERICK M.D. Organization Unknown Address [address] [place] [address] Phone [phone] Care Team Providers Care Log Truck Driver Name Role Phone Amish Estrada MD AUTM [phone] [employer] - Nutrition, Education AUTM [phone] Problems Active Problems Provider Date Type II [...] Day 180tabs E11.65 Jesica Broderick M.D. Nystatin 982119Atku/GM Powder apply to affected area three times a day as needed 1Bottle B35.4 Isa Lindsay ch, FNP 07/15/2010 Lisinopril 5mg Tablets take one tablet by mouth every day 90tabs R03.0 Jesica Broderick M.D. 006 [facility] so ftclix, use as directed to [...] CPT Code Status Date Vaccine Lot # [id number] Given 08/10/2020 Influenza Virus Vaccine, Quadrivalent,age 3 and up,multidose vial [id number] 51849 Given 09/11/2019 Influenza Virus Vaccine, Quadrivalent,age 3 and up,multidose vial [id number] 52289 Given 08/21/2018 Influenza Virus Vaccine, Quadrivalent,age 3 and up,multidose vial [id number] 20439 Given 05/22/2018 Pneumococcal Vaccine [id number] 08367 Given 05/04/2017 Prevnar 13 For Adults [id number] 32590 Given 09/29/2015 Influenza Vaccination 72903 Refused 11/16/2017 Boostrix (Tdap) Tetnus, Diphtheria Toxoids [...] Flow Rate 344 Estimated Peak Flow Rate [place] Body Weight 130 lb BMI (Body Mass [...] Flow Rate 344 Estimated Peak Flow Rate [place] Body Weight 130 lb BMI (Body Mass Index) 39.1 kg/m2 Results Test Acquired Date Facility Test Result H/L Range Note Complete Blood Count 09/13/2020 [place] [address] [phone] White Blood Count 7.6 10 Normal 4.0-10.0 [...] Normal 0-0 Prothrombin Time/Inr 09/13/2020 Patient Service [place], [place] [address] [phone] Prothrombin Time 13.1 seconds Normal 12.5-14.3 Inr 0.97 Normal 1 Basic Metabolic Profile 09/13/[address] [facility] [place] [address] [phone] Glucose, Fasting 136 mg/dL High 70-100 Blood [...] mg/dL Low 8.8-10.2 Hemoglobin A1c 08/04/2020 [facility] [address] [place], [place] [address] [phone] Hemoglobin A1c 6.7 % High 4.8-5.6 3, 4 Microalbumin Random 08/04/[address] [facility] [id number] [place] [address], [facility] [address] [place] [address] [phone] Albumin, Urine 13.4 ug/mL Not Estab. Metabolic Panel (14), Comprehensive 08/04/2020 [facility] [address] [place], [place] [address] [phone] Glucose 139 mg/dL High 65-99 BUN 18 [...] IU/L 0-40 Alt (SGPT) 23 IU/L 0-32 Hemoglobin A1c 04/13/[address] [facility] [address] [place] [address], [address] [place] [address] [phone] Hemoglobin A1c 7.8 % High 4.8-5.6 5 Lipid Panel 04/13/[address] [facility] [address] [place] [address], [address] [place] [address] [phone] Cholesterol, Total 110 mg/dL 100-199 Triglycerides 170 mg/dL High 0-149 HDL Cholesterol 39 mg/dL Low >39 VLDL Cholesterol Jc 34 mg/dL 5-40 LDL Cholesterol Calc 37 mg/dL 0-99 Comment: TNP CBC With Differential 04/13/[address] [facility] [address] [place] [address], [address] [place], [place] [address] [phone] WBC 6.5 x10E3/uL 3.4-10.8 RBC 3.92 x10E6/uL 3.77-5.28 Hemoglobin 12.0 g/dL 11.1-15.9 Hematocrit 35.1 % 34.0-46.6 MCV 90 fL 79-97 MCH 30.6 pg 26.6-33.0 MCHC 34.2 g/dL 31.5-35.7 RDW 15.3 % 11.7-15.4 Platelets 154 x10E3/uL 150-450 Neutrophils 58 % Not Estab. Lymphs 32 % Not Estab. Monocytes 6 % Not Estab. Eos 2 % Not Estab. Basos 1 % Not Estab. Immature Cells TNP Neutrophils (Absolute) 3.7 x10E3/uL 1.4-7.0 Lymphs (Absolute) 2.1 x10E3/uL 0.7-3.1 Monocytes(Absolute) 0.4 x10E3/uL 0.1-0.9 Eos (Absolute) 0.2 x10E3/uL 0.0-0.4 Baso (Absolute) 0.0 x10E3/uL 0.0-0.2 Immature Granulocytes 1 % Not Estab. Immature Grans (Abs) 0.1 x10E3/uL 0.0-0.1 NRBC TNP Hematology Comments: TNP Metabolic Panel (14), Comprehensive 04/13/2020 [facility] [address] [place], [place] [address] [phone] Glucose 155 mg/dL High 65-99 BUN 17 mg/dL 8-27 Creatinine 0.96 mg/dL 0.57-1.00 eGFR If NonAfricn Am 61 mL/min/1.73 >59 eGFR If Africn Am 70 mL/min/1.73 >59 BUN/Creatinine Ratio 18 12-28 Sodium 142 mmol/L 134-144 Potassium 4.7 mmol/L 3.5-5.2 Chloride 105 mmol/L 96-106 Carbon Dioxide, Total 23 mmol/L 20-29 Calcium 9.3 mg/dL 8.7-10.3 Protein, Total 6.9 g/dL 6.0-8.5 Albumin 4.4 g/dL 3.8-4.8 Globulin, Total 2.5 g/dL 1.5-4.5 A/G Ratio 1.8 1.2-2.2 Bilirubin, Total 0.2 mg/dL 0.0-1.2 Alkaline Phosphatase 57 IU/L 39-117 Ast (Sgot) 27 IU/L 0-40 Alt (SGPT) 27 IU/L 0-32 Albumin/Creatinine Ratio, Random Urine 04/13/2020 [facility] [address] [facility], [address] [place] [address] [phone] Creatinine, Urine 67.1 mg/dL Not Estab. Albumin, Urine 20.9 ug/mL Not Estab. 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 3 A courtesy copy of this repo rt has been sent to the patient, , [facility] 4 Prediabetes: 5.7 - 6.4 Diabetes: >6.4 Glycemic control for adults with diabetes: <7.0 5 Prediabetes: 5.7 - 6.4 Diabetes: >6.4 Glycemic control for adults with diabetes: <7.0 6 Normal: 0 - 29 Moderately increased: 30 - 300 Severely increased: >300 Please note reference interval change Procedures Date Code Description Status 08/10/2020 [id number] Diabetic Foot Exam Completed 02/11/2016 [id number] Mammogram Completed 02/11/2016 [id number] Bone Mineral Density Test Comple [employer] Description No Information Available Encounters Type Date Location Provider Dx Diagnosis Office Visit 08/10/2020 10:45a Main Office Isa [...] M.D. 10/13/2020 I25.10 Atherosclerotic heart disease of [place] coronary artery with Jesica Broderick M.D. 10/13/2020 I11.0 Hypertensive heart disease with heart failure Jesica Broderick M.D. 10/13/2020 E78.2 Mixed hyperlipidemia Ashley Broderick M.D. 10/13/2020 Z00.00 Encounter for [facility] adult medical examination without abnormal findings Jesica Broderick M.D. 08/10/2020 E11.40 Type 2 diabetes yousuf itus with diabetic neuropathy, unspecified Isa Capellan, MANUFACTURING LAB TECHNICIAN 08/10/2020 I73.9 Peripheral vascular disease, uns pecified Isa Capellan, MANUFACTURING LAB TECHNICIAN 08/10/2020 I25.10 Atherosclerotic heart disease of [place] coronary artery with Isa Capellan, MANUFACTURING LAB TECHNICIAN 08/10/2020 I11.0 Hypertensive heart disease with heart failure Isa Capellan, MANUFACTURING LAB TECHNICIAN 08/10/2020 E78.2 Mixed hyperlipidemia Arianna Capellan, MANUFACTURING LAB TECHNICIAN 08/10/2020 Z23 Encounter for immunization Isa Auguste, MANUFACTURING LAB TECHNICIAN 04/27/2020 E11.40 Type 2 diabetes yousuf itus with diabetic neuropathy, unspecified Chayo Pyle PA-C 04/27/2020 I73.9 Peripheral vascular disease, uns pecified Chayo Pyle PA-C 04/27/2020 I25.10 Atherosclerotic heart disease of [place] coronary artery with Chayo Pyle PA-C 04/27/2020 I11.0 Hypertensive heart disease with heart failure Chayo Pyle PA-C 04/27/2020 E78.2 Mixed hyperlipidemia Latha Pyle PA-C Plan of Treatment Future Appointment(s):* 02/07/2021 11:30 am - Isa Capellan FNP at Main Office 10/13/2020 - Jesica Broderick M.D.* E66.01 Morbid (severe) obesity due to excess calories* Follow up:* . * E11.40 Type 2 diabetes mellitus with diabetic neuropathy, unspecified* Follow up:* . 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 * I11.0 Hypertensive heart disease with heart failure * E78.2 Mixed hyperlipidemia * Z00.00 Encounter for general adult medical examination without abnormal findings Functional Status Functional Condition Comment Date Status Bifocal glasses Active Independent with all ADL's Activ e Mental Status Mental Condition Comment Date Status None Active Referrals Description No Information Available
--- OUTSIDE RECORDS SUMMARY | 2021-01-10 08:45 | CCD | Continuity of Care Document ---
Author Organization Unknown Address Unknown Phone Unavailable Care Team Providers Care Classics Professor Name Role Phone Amish Estrada MD AUTM [phone] Feed The Soul - Nutrition, Education AUTM [...] Day 180tabs E11.65 Jesica Saravia M.D. Nystatin 927506Gkkh/GM Powder apply to affected area three times a day as needed 1Bottle B35.4 Isa Lindsay ch, [facility] 07/15/2010 Lisinopril 5mg Tablets take one tablet by mouth every day 90tabs R03.0 Jesica Saravia M.D. 006 [facility] so ftclix, use as directed to [...] CPT Code Status Date Vaccine Lot # 17469 Given 08/10/2020 Influenza Virus Vaccine, Quadrivalent,age 3 and up,multidose vial [id number] Given 09/11/2019 Influenza Virus Vaccine, Quadrivalent,age 3 and up,multidose vial [id number] 57586 Given 08/21/2018 Influenza Virus Vaccine, Quadrivalent,age 3 and up,multidose vial [id number] 60114 Given 05/22/2018 Pneumococcal Vaccine [id number] Given 05/04/2017 Prevnar 13 For Adults [id number] Given 09/29/2015 Influenza Vaccination [id number] Refused 11/16/2017 Boostrix (Tdap) Tetnus, Diphtheria Toxoids [...] Flow Rate 344 Estimated Peak Flow Rate [place] Body Weight 130 lb BMI (Body Mass [...] Flow Rate 344 Estimated Peak Flow Rate [place] Body Weight 130 lb BMI (Body Mass Index) 39.1 kg/m2 Results Test Acquired Date Facility Test Result H/L Range Note Laboratory test finding 09/13/2020 Patient Service [place], [place] [id number] [phone] Bedside Glucose 143 mg/dL High 80-115 Laboratory test finding 09/13/2020 Patient Service [place], [place] [address] [phone] Bedside Glucose 135 mg/dL High 80-115 Complete Blood Count 09/13/2020 [place] [address] [phone] White Blood Count 7.6 10 Normal 4.0-10.0 [...] Normal 0-0 Prothrombin Time/Inr 09/13/2020 [place] [address] [phone] Prothrombin Time 13.1 seconds Normal 12.5-14.3 Inr 0.97 Normal 1 Basic Metabolic Profile 09/13/2020 [place] [address] [phone] Glucose, Fasting 136 mg/dL High 70-100 Blood [...] mg/dL Low 8.8-10.2 Hemoglobin A1c 08/04/2020 [facility] [id number] [facility] [place] [address] [phone] Hemoglobin A1c 6.7 % High 4.8-5.6 3, 4 Microalbumin Random 08/04/2020 [facility] [id number] [facility] [address] [place] [address] [phone] Albumin, Urine 13.4 ug/mL Not Estab. 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 10/13/2020 I25.10 Atherosclerotic heart disease of [place] coronary artery with Jesica Saravia M.D. 10/13/2020 I11.0 Hypertensive heart disease with heart failure Jesica Saravia M.D. 10/13/2020 E78.2 Mixed hyperlipidemia Ashley Saravia M.D. 10/13/2020 Z00.00 Encounter for [facility] adult medical examination without abnormal findings Jesica Saravia M.D. 08/10/2020 E11.40 Type 2 diabetes yousuf itus with diabetic neuropathy, unspecified Isa Capellan, CARMELLA 08/10/2020 I73.9 Peripheral vascular disease, uns pecified Isa Capellan, CARMELLA 08/10/2020 I25.10 Atherosclerotic heart disease of [place] coronary artery with Isa Capellan FNP 08/10/2020 [...] surgery. * I25.10 Atherosclerotic heart disease of [place] coronary artery with* Comments: * continue to [...]
--- OUTSIDE RECORDS SUMMARY | 2021-01-10 08:45 | CCD | Continuity of Care Document ---
Author Author Kajal CLOUD MD Organization Unknown Address [address] [facility], [address] [place] [address] Phone [phone] Care Team Providers Care Senior Web Architect Name Role Phone Jesica Saravia M.D. AUTM [phone] Problems Active Problems Provider Date Essential hypertension Shen Hull M.D. Onset: 017 Social History Type Date Description Comments Sex Unknown ETOH Use Rarely 2-3 TIMES PER YE AR Recreational Drug Use Denies Drug Use Tobacco Use Start: Unknown End: Unknown Patient is a former smoker 1 PPD X 35 YRS Tobacco Use Start: Unknown Quit 1988 Allergies, Adverse Reactions, Alerts Active Allergies Reaction Severity Comments Date Penicillin RASH,UPSET STOMACH 7 Medications Active Medications SIG Qnty Indications Ordering Provide r Date Nystatin Powder apply to groin fold rash twice a day dispense 1 bottle 1units I70.213 Shen Hull M.D. 07/10/2019 Metoprolol Tartrate 25mg Tablets 1/2 tab every day Unknown Lipitor 40mg Tablets every night at bedtime Unknown Plavix 75mg Tablets 1 by mouth every day Unknown Lisinopril 5mg Tablets once a day Unknown Glimepiride 2mg Tablets 1/2 by mouth every day Unknown Janumet XR 50-500mg Tablets ER 24H R twice a day Unknown Multi Vitamin Tablets daily Unknown Allopurinol 100mg Tablets 1 by mouth every day Unknown Aspirin 81mg Tablets DR 1 by mouth every day Unknown Immunizations Description No Information Available Vital Signs Date Vital Result Comment 10/18/2020 2:56pm BP Systolic 128 mmHg BP Diastolic 80 mmHg Height 68 inches 5'8" Weight 248.50 lb BMI (Body Mass Index) 37.8 kg/m2 [place] Body Weight 140 lb Weight 112.720 kg BSA (Body Surface Area) 2.24 m2 09/20/2020 8:55am BP Systolic 141 mmHg BP Diastolic 83 mmHg Height 68 inches 5'8" Weight 244.00 lb BMI (Body Mass Index) 37.1 kg/m2 [place] Body Weight 140 lb Weight 110.678 kg BSA (Body Surface Area) 2.22 m2 Results Test Acquired Date Facility Test Result H/L Range Note Complete Blood Count 09/13/2020 [facility] enter Main Lab [address] [place] [address] [phone] White Blood Count 7.6 10 Normal 4.0-10.0 [...] 0.0 % Normal 0-0 Prothrombin Time/Inr 09/13/2020 [facility] enter Main Lab [address] [place] [address] [phone] Prothrombin Time 13.1 seconds Normal 12.5-14.3 Inr 0.97 Normal 1 Basic Metabolic Profile 09/13/2020 [facility] Main Lab [address] [place] [address] [phone] Glucose, Fasting 136 mg/dL High 70-100 Blood [...] 8-16 Calcium Level 8.7 mg/dL Low 8.8-10.2 1 THERAPUTIC HUMAN INR VALUES INDICATIONS NORMAL [...] Little GFR Left ESRD GFR <15 on [employer] Procedures Date Code Description Status 09/13/2020 30635 Moderate Sedation Se rvices; Same Phys Intl 15 Mins; PT >= 5 Years Completed 09/13/2020 33704 Catheter Placement A rterial System Init 3RD Order Abdom/Pelv/Low Completed Medical Devices Description No Information Available Encounters Type Date Location Provider Dx Diagnosis Office Visit 09/20/2020 9:00a [facility] HECTOR Lazaro I70.213 [place] arteries of extrm w intrmt monica, bi legs I65.23 Occlusion and stenosis of bi lateral carotid arteries Z87.891 Personal history of nicotine dependence Office Visit 08/17/2020 9:30a [facility] HECTOR Lazaro I70.213 [place] arteries of extrm w intrmt [place], bi legs I65.23 Occlusion and stenosis of bi lateral carotid arteries Z87.891 Personal history of nicotine dependence Assessments Date Code Description Provider 09/20/2020 I70.213 Atherosclerosis of [place] arteri es of extremities with inter HECTOR Bliss 09/20/2020 I65.23 Occlusion and stenosis of bilate ral carotid arteries HECTOR Bliss 09/20/2020 Z87.891 Personal history of nicotine dep endence HECTOR Bliss 09/13/2020 I70.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
--- OUTSIDE RECORDS SUMMARY | 2021-01-10 08:46 | CCD ---
Author Author [facility] Organization [facility] Address Unknown Phone Unavailable Care Team Providers Care Methods Engineer Name Role Phone Duarte Saravia MD Unavailable Unavailable Duarte Saravia MD Unavailable Unavailable Duarte Saravia MD Unavailable Unavailable Duarte Saravia MD Unavailable Unavailable Duarte Saravia MD Unavailable Unavailable Duarte Saravia MD Unavailable Unavailable Duarte Saravia MD Unavailable Unavailable Duarte Saravia MD Unavailable Unavailable Duarte Saravia MD Unavailable Unavailable Duarte Saravia MD Unavailable Unavailable Duarte Saravia MD Unavailable Unavailable Duarte Saravia MD Unavailable Unavailable Duarte Saravia MD Unavailable Unavailable Duarte Saravia MD Unavailable Unavailable Duarte Saravia MD Unavailable Unavailable Duarte Saravia MD Unavailable Unavailable Duarte Saravia MD Unavailable Unavailable Duarte Saravia MD Unavailable Unavailable Duarte Saravia MD Unavailable Unavailable Duarte Saravia MD Unavailable Unavailable Duarte Saravia MD Unavailable Unavailable Duarte Saravia MD Unavailable Unavailable Duarte Saravia MD Unavailable Unavailable Duarte Saravia MD Unavailable Unavailable Duarte Saravia MD Unavailable Unavailable Duarte Saravia MD Unavailable Unavailable Duarte Saravia MD Unavailable Unavailable Duarte Saravia MD Unavailable Unavailable Manjit, Duarte Mooney MD Unavailable Unavailable Manjit, Duarte Mooney MD Unavailable Unavailable Manjit, Duarte Mooney MD Unavailable Unavailable Manjit, Duarte Mooney MD Unavailable Unavailable Manjit, Duarte Mooney MD Unavailable Unavailable Manjit, Duarte Mooney MD Unavailable Unavailable Manjit, Duarte Mooney MD Unavailable Unavailable Manjit, Duarte Mooney MD Unavailable Unavailable Manjit, Duarte Mooney MD Unavailable Unavailable Manjit, Duarte Mooney MD Unavailable Unavailable Manjit, Duarte Mooney MD Unavailable Unavailable Manjit, Duarte Mooney MD Unavailable Unavailable Manjit, Duarte Mooney MD Unavailable Unavailable Manjit, Duarte Mooney MD Unavailable Unavailable Manjit, Duarte Mooney MD Unavailable Unavailable Manjit, Duarte Mooney MD Unavailable Unavailable Manjit, Duarte Mooney MD Unavailable Unavailable Manjit, Duarte Mooney MD Unavailable Unavailable Manjit, Duarte Mooney MD Unavailable Unavailable Manjit, Duarte Mooney MD Unavailable Unavailable Manjit, Duarte Mooney MD Unavailable Unavailable Manjit, Duarte Mooney MD Unavailable Unavailable Manjit, Duarte Mooney MD Unavailable Unavailable Manjit, Duarte Mooney MD Unavailable Unavailable Manjit, Duarte Mooney MD Unavailable Unavailable Manjit, Duarte Mooney MD Unavailable Unavailable Manjit, Duarte Mooney MD Unavailable Unavailable Manjit, Duarte Mooney MD Unavailable Unavailable Manjit, Duarte Mooney MD Unavailable Unavailable Manjit, Duarte Mooney MD Unavailable Unavailable Manjit, Duarte Mooney MD Unavailable Unavailable Manjit, Daurte Mooney MD Unavailable Unavailable Manjit, Duarte Mooney MD Unavailable Unavailable Manjit, Duarte Mooney MD Unavailable Unavailable Manjit, Duarte Mooney MD Unavailable Unavailable Manjit, Duarte Mooney MD Unavailable Unavailable Manjit, Duarte Mooney MD Unavailable Unavailable Manjit, Duarte Mooney MD Unavailable Unavailable Manjit, Duarte Mooney MD Unavailable Unavailable Manjit, Duarte Mooney MD Unavailable Unavailable Manjit, Duarte Mooney MD Unavailable Unavailable Manjit, Duarte Mooney MD Unavailable Unavailable Manjit, Duarte Mooney MD Unavailable Unavailable Manjit, Duarte Mooney MD Unavailable Unavailable Manjit, Duarte Mooney MD Unavailable Unavailable Manjit, Duarte Mooney MD Unavailable Unavailable Manjit, Duarte Mooney MD Unavailable Unavailable Pereyra Nolan, Duarte Billings MD, FACS Unavailable Unavailable Hafsa Nolan, Duarte Billings MD, FACS Unavailable Unavailable Hafsa Nolan, Duarte Billings MD, FACS Unavailable Unavailable Hafsa Nolan, Duarte Billings MD, FACS Unavailable Unavailable Pereyra Ovidio, Duarte Billings MD, FACS Unavailable Unavailable Pereyra Ovidio, Duarte Billings MD, FACS Unavailable Unavailable Hafsa Nolan, Duarte Billings MD, FACS Unavailable Unavailable Hafsa Nolan, Duarte Billings MD, FACS Unavailable Unavailable Pereyra Nolan, Duarte Billings MD, FACS Unavailable Unavailable Pereyra Nolan, Duarte Billings MD, FACS Unavailable Unavailable Pereyra Nolan, Duarte Billings MD, FACS Unavailable Unavailable Pereyra Nolan, Duarte Billings MD, FACS Unavailable Unavailable Pereyra Nolan, A Manuelito MD, FACS Unavailable Unavailable Pereyra Nolan, Duarte Billings MD FACS Unavailable Unavailable Pereyra Nolan, Duarte Billings MD FACS Unavailable Unavailable Peryera Nolan, Duarte Billings MD FACS Unavailable Unavailable Pereyra Nolan, Duarte Billings MD FACS Unavailable Unavailable Pereyra Nolan, Duarte Billings MD FACS Unavailable Unavailable Pereyra Nolan, Duarte Billings MD FACS Unavailable Unavailable Pereyra Nolan, Duarte Billings MD FACS Unavailable Unavailable Pereyra Nolan, Duarte Billings MD FACS Unavailable Unavailable Pereyra Nolan, Duarte Billings MD FACS Unavailable Unavailable Pereyra Nolan, Duarte Billings MD FACS Unavailable Unavailable Pereyra Nolan, Duarte Billings MD FACS Unavailable Unavailable Pereyra Nolan, Duarte Billings MD FACS Unavailable Unavailable Pereyra Nolan, Duarte Billings MD FACS Unavailable Unavailable Pereyra Nolan, Duarte Billings MD FACS Unavailable Unavailable Pereyra Nolan, Duarte Billings MD FACS Unavailable Unavailable Pereyra Nolan, Duarte Billings MD FACS Unavailable Unavailable Pereyra Nolan, Duarte Billings MD FACS Unavailable Unavailable Pereyra Nolan, Duarte Billings MD FACS Unavailable Unavailable Pereyra Nolan, Duarte Billings MD FACS Unavailable Unavailable Pereyra Nolan, Duarte Billings MD FACS Unavailable Unavailable Pereyra Nolan, Duarte Billings MD FACS Unavailable Unavailable Scordo, M Chayo PA Unavailable Unavailable Scordo, M Chayo PA Unavailable Unavailable Scordo, M Chayo PA Unavailable Unavailable Scordo, M Chayo PA Unavailable Unavailable Scordo, M Chayo PA Unavailable Unavailable Scordo, M Chayo PA Unavailable Unavailable Scordo, M Chayo PA Unavailable Unavailable Scordo, M Chayo PA Unavailable Unavailable Scordo, M Chayo PA Unavailable Unavailable Scordo, M Chayo PA Unavailable Unavailable Scordo, M Chayo PA Unavailable Unavailable Scordo, M Chayo PA Unavailable Unavailable Scordo, M Chayo PA Unavailable Unavailable Scordo, M Chayo PA Unavailable Unavailable Scordo, M Chayo PA Unavailable Unavailable Scordo, M Chayo PA Unavailable Unavailable Scordo, M Chayo PA Unavailable Unavailable Scordo, M Chayo PA Unavailable Unavailable Scordo, M Chayo PA Unavailable Unavailable Scordo, M Chayo PA Unavailable Unavailable Scordo, M Chayo PA Unavailable Unavailable Scordo, M Chayo PA Unavailable Unavailable Scordo, M Chayo PA Unavailable Unavailable Scordo, M Chayo PA Unavailable Unavailable Scordo, M Chayo PA Unavailable Unavailable Scordo, M Chayo PA Unavailable Unavailable Scordo, M Chayo PA Unavailable Unavailable Scordo, M Chayo PA Unavailable Unavailable Scordo, M Chayo PA Unavailable Unavailable Scordo, M Chayo PA Unavailable Unavailable Scordo, M Chayo PA Unavailable Unavailable Scordo, M Chayo PA Unavailable Unavailable Scordo, M Chayo PA Unavailable Unavailable Scordo, M Chayo PA Unavailable Unavailable Scordo, M Chayo PA Unavailable Unavailable Scordo, M Chayo PA Unavailable Unavailable Scordo, M Chayo PA Unavailable Unavailable Scordo, M Chayo PA Unavailable Unavailable Scordo, M Chayo PA Unavailable Unavailable Scordo, M Chayo PA Unavailable Unavailable Scordo, M Chayo PA Unavailable Unavailable Scordo, M Chayo PA Unavailable Unavailable Toribio, L Jacqui RPA Unavailable Unavailable Toribio, L Jacqui RPA Unavailable Unavailable Toribio, L Jacqui RPA Unavailable Unavailable Toribio, L Jacqui RPA Unavailable Unavailable Toribio, L Jacqui RPA Unavailable Unavailable Toribio, L Jacqui RPA Unavailable Unavailable Toribio, L Jacqui RPA Unavailable Unavailable Toribio, L Jacqui RPA Unavailable Unavailable Toribio, L Jacqui RPA Unavailable Unavailable Toribio, L Jacqui RPA Unavailable Unavailable Toribio, L Jacqui RPA Unavailable Unavailable Toribio, L Jacqui RPA Unavailable Unavailable Toribio, L Jacqui RPA Unavailable Unavailable Toribio, L Jacqui RPA Unavailable Unavailable Toribio, L Jacqui RPA Unavailable Unavailable Toribio, L Jacqui RPA Unavailable Unavailable Toribio, L Jacqui RPA Unavailable Unavailable Toribio, L Jacqui RPA Unavailable Unavailable Toribio, L Jacqui RPA Unavailable Unavailable Toribio, L Jacqui RPA Unavailable Unavailable Toribio, L Jacqui RPA Unavailable Unavailable Toribio, L Jacqui RPA Unavailable Unavailable Toribio, L Jacqui RPA Unavailable Unavailable Toribio, L Jacqui RPA Unavailable Unavailable Troibio, L Jacqui RPA Unavailable Unavailable Toribio, L Jacqui RPA Unavailable Unavailable Toribio, L Jacqui RPA Unavailable Unavailable Toribio, L Jacqui RPA Unavailable Unavailable Toribio, L Jacqui RPA Unavailable Unavailable Toribio, L Jacqui RPA Unavailable Unavailable Toribio, L Jacqui RPA Unavailable Unavailable Toribio, L Jacqui RPA Unavailable Unavailable Pleskach, Isa PIN SORTER AND BAGGER Unavailable Unavailable Pleskach, Isa PIN SORTER AND BAGGER Unavailable Unavailable Pleskach, Isa PIN SORTER AND BAGGER Unavailable Unavailable Pleskach, Isa PIN SORTER AND BAGGER Unavailable Unavailable Pleskach, Isa PIN SORTER AND BAGGER Unavailable Unavailable Pleskach, Isa PIN SORTER AND BAGGER Unavailable Unavailable Pleskach, Isa PIN SORTER AND BAGGER Unavailable Unavailable Pleskach, Isa PIN SORTER AND BAGGER Unavailable Unavailable Pleskach, Isa PIN SORTER AND BAGGER Unavailable Unavailable Pleskach, Isa PIN SORTER AND BAGGER Unavailable Unavailable Pleskach, Isa PIN SORTER AND BAGGER Unavailable Unavailable Pleskach, Isa PIN SORTER AND BAGGER Unavailable Unavailable Pleskach, Isa PIN SORTER AND BAGGER Unavailable Unavailable Pleskach, Isa PIN SORTER AND BAGGER Unavailable Unavailable Pleskach, Isa PIN SORTER AND BAGGER Unavailable Unavailable Pleskach, Isa PIN SORTER AND BAGGER Unavailable Unavailable Pleskach, Sia PIN SORTER AND BAGGER Unavailable Unavailable Pleskach, Isa PIN SORTER AND BAGGER Unavailable Unavailable Pleskach, Isa PIN SORTER AND BAGGER Unavailable Unavailable Pleskach, Isa PIN SORTER AND BAGGER Unavailable Unavailable Pleskach, Isa PIN SORTER AND BAGGER Unavailable Unavailable Pleskach, Isa PIN SORTER AND BAGGER Unavailable Unavailable Pleskach, Isa PIN SORTER AND BAGGER Unavailable Unavailable Pleskach, Isa PIN SORTER AND BAGGER Unavailable Unavailable Pleskach, Isa PIN SORTER AND BAGGER Unavailable Unavailable Pleskach, Isa PIN SORTER AND BAGGER Unavailable Unavailable Pleskach, Isa PIN SORTER AND BAGGER Unavailable Unavailable Pleskach, Isa PIN SORTER AND BAGGER Unavailable Unavailable Pleskach, Isa PIN SORTER AND BAGGER Unavailable Unavailable Pleskach, Isa PIN SORTER AND BAGGER Unavailable Unavailable Petrancosta, [place] Rashmi PA-C Unavailable Unavailabl e Petrancosta, [place] Rashmi PA-C Unavailable Unavailabl e Petrancosta, [place] Rashmi PA-C Unavailable Unavailabl e Petrancosta, [place] Rashmi PA-C Unavailable Unavailabl e Petrancosta, [place] Rashmi PA-C Unavailable Unavailabl e Petrancosta, [place] Rashmi PA-C Unavailable Unavailabl e Petrancosta, [place] Rashmi PA-C Unavailable Unavailabl e Petrancosta, [place] Rashmi PA-C Unavailable Unavailabl e Petrancosta, [place] Rashmi PA-C Unavailable Unavailabl e Petrancosta, [place] Rashmi PA-C Unavailable Unavailabl e Petrancosta, [place] Rashmi PA-C Unavailable Unavailabl e Petrancosta, [place] Rashmi PA-C Unavailable Unavailabl e Petrancosta, [place] Rashmi PA-C Unavailable Unavailabl e Petrancosta, [place] Rashmi PA-C Unavailable Unavailabl e Petrancosta, [place] Rashmi PA-C Unavailable Unavailabl e Petrancosta, [place] Rashmi PA-C Unavailable Unavailabl e Petrancosta, [place] Rashmi PA-C Unavailable Unavailabl e Petrancosta, [place] Rashmi PA-C Unavailable Unavailabl e Petrancosta, [place] Rashmi PA-C Unavailable Unavailabl e Petrancosta, [place] Rashmi PA-C Unavailable Unavailabl e Petrancosta, [place] Rashmi PA-C Unavailable Unavailabl e Petrancosta, [place] Rashmi PA-C Unavailable Unavailabl e Petrancosta, [place] Rashmi PA-C Unavailable Unavailabl e YAJAIRA, ASHLEY CONTI Unavailable Unavailable YAJAIRA, ASHLEY CONTI Unavailable Unavailable YAJAIRA, ASHLEY CONTI Unavailable Unavailable YAJAIRA, ASHLEY CONTI Unavailable Unavailable YAJAIRA, ASHLEY CONTI Unavailable Unavailable YAJAIRA, ASHLEY CONTI Unavailable Unavailable YAJAIRA, ASHLEY CONTI Unavailable Unavailable YAJAIAR, ASHLEY CONTI Unavailable Unavailable YAJAIRA, ASHLEY CONTI Unavailable Unavailable YAJAIRA, ASHLEY CONTI Unavailable Unavailable YAJAIRA, ASHLEY CONTI Unavailable Unavailable YAJAIRA, ASHLEY CONTI Unavailable Unavailable YAJAIRA, ASHLEY CONTI Unavailable Unavailable YAJAIRA, ASHLEY CONTI Unavailable Unavailable YAJAIRA, ASHLEY CONTI Unavailable Unavailable YAJAIRA, ASHLEY CONTI Unavailable Unavailable YAJAIRA, ASHLEY CONTI Unavailable Unavailable YAJAIRA, ASHLEY CONTI Unavailable Unavailable YAJAIRA, ASHLEY CONTI Unavailable Unavailable YAJAIRA, ASHLEY CONTI Unavailable Unavailable YAJAIRA, ASHLEY CONTI Unavailable Unavailable YAJAIRA, ASHLEY CONTI Unavailable Unavailable YAJAIRA, ASHLEY CONTI Unavailable Unavailable YAJAIRA, ASHLEY CONTI Unavailable Unavailable YAJAIRA, ASHLEY CONTI Unavailable Unavailable YAJAIRA, ASHLEY CONTI Unavailable Unavailable YAJAIRA, ASHLEY CONTI Unavailable Unavailable YAJAIRA, ASHLEY CONTI Unavailable Unavailable YAJAIRA, ASHLEY CONTI Unavailable Unavailable YAJAIRA, ASHLEY CONTI Unavailable Unavailable YAJAIRA, ASHLEY CONTI Unavailable Unavailable YAJAIRA, ASHLEY CONTI Unavailable Unavailable YAJAIRA, ASHLEY CONTI Unavailable Unavailable YAJAIRA, ASHLEY CONTI Unavailable Unavailable YAJAIRA, ASHLEY CONTI Unavailable Unavailable YAJAIRA, ASHLEY CONTI Unavailable Unavailable YAJAIRA, ASHLEY CONTI Unavailable Unavailable YAJAIRA, ASHLEY CONTI Unavailable Unavailable YAJAIRA, ASHLEY CONTI Unavailable Unavailable YAJAIRA, ASHLEY CONTI Unavailable Unavailable YAJAIRA, ASHLEY CONTI Unavailable Unavailable YAJAIRA, ASHLEY CONTI Unavailable Unavailable YAJAIRA, ASHLEY CONTI Unavailable Unavailable YAJAIRA, ASHLEY CONTI Unavailable Unavailable YAJAIRA, ASHLEY CONTI Unavailable Unavailable YAJAIRA, ASHLEY CONTI Unavailable Unavailable YAJAIRA, ASHLEY CONTI Unavailable Unavailable YAJAIRA, ASHLEY CONTI Unavailable Unavailable YAJAIRA, ASHLEY CONTI Unavailable Unavailable YAJAIRA, ASHLEY CONTI Unavailable Unavailable YAJAIRA, ASHLEY CONTI Unavailable Unavailable YAJAIRA, ASHLEY CONTI Unavailable Unavailable YAJAIRA, ASHLEY CONTI Unavailable Unavailable YAJAIRA, ASHLEY CONTI Unavailable Unavailable Duarte Saravia MD Unavailable Unavailable Manjit, Duarte Mooney MD Unavailable Unavailable Manjit, Duarte Mooney MD Unavailable Unavailable Manjit, Duarte Mooney MD Unavailable Unavailable Manjit, Duarte Mooney MD Unavailable Unavailable Manjit, Duarte Mooney MD Unavailable Unavailable Manjit, Duarte Mooney MD Unavailable Unavailable Manjit, Duarte Mooney MD Unavailable Unavailable Manjit, Duarte Mooney MD Unavailable Unavailable Manjit, Duarte Mooney MD Unavailable Unavailable Manjit, Duarte Mooney MD Unavailable Unavailable Manjit, Duarte Mooney MD Unavailable Unavailable Manjit, Duarte Mooney MD Unavailable Unavailable Manjit, Duarte Mooney MD Unavailable Unavailable Manjit, Duarte Mooney MD Unavailable Unavailable Manjit, Duarte Mooney MD Unavailable Unavailable Manjit, Duarte Mooney MD Unavailable Unavailable Manjit, Duarte Mooney MD Unavailable Unavailable Manjit, Duarte Mooney MD Unavailable Unavailable Manjit, Duarte Mooney MD Unavailable Unavailable Manjit, Duarte Mooney MD Unavailable Unavailable Manjit, Duarte Mooney MD Unavailable Unavailable Manjit, Duarte Mooney MD Unavailable Unavailable Manjit, Duarte Mooney MD Unavailable Unavailable Manjit, Duarte Mooney MD Unavailable Unavailable Manjit, Duarte Mooney MD Unavailable Unavailable Manjit, Duarte Mooney MD Unavailable Unavailable Manjit, Duarte Mooney MD Unavailable Unavailable Manjit, Duarte Mooney MD Unavailable Unavailable Manjit, Duarte Mooney MD Unavailable Unavailable Manjit, Duarte Mooney MD Unavailable Unavailable Manjit, Duarte Mooney MD Unavailable Unavailable Manjit, Duarte Mooney MD Unavailable Unavailable Manjit, Duarte Mooney MD Unavailable Unavailable Manjit, Duarte Mooney MD Unavailable Unavailable Manjit, Duarte Mooney MD Unavailable Unavailable Manjit, Duarte Mooney MD Unavailable Unavailable Manjit, Duarte Mooney MD Unavailable Unavailable Manjit, Duarte Mooney MD Unavailable Unavailable Manjit, Duarte Mooney MD Unavailable Unavailable Manjit, Duarte Mooney MD Unavailable Unavailable Manjit, Duarte Mooney MD Unavailable Unavailable Manjit, Duarte Mooney MD Unavailable Unavailable Manjit, Duatre Mooney MD Unavailable Unavailable Manjit, Duarte Mooney MD Unavailable Unavailable Manjit, Duarte Mooney MD Unavailable Unavailable Manjit, Duarte Mooney MD Unavailable Unavailable Manjit, Duarte Mooney MD Unavailable Unavailable Manjit, Duarte Mooney MD Unavailable Unavailable Manjit, Duarte Mooney MD Unavailable Unavailable Manjit, Duarte Mooney MD Unavailable Unavailable Manjit, Duarte Mooney MD Unavailable Unavailable Manjit, Duarte Mooney MD Unavailable Unavailable Manjit, Duarte Mooney MD Unavailable Unavailable Manjit, Duarte Mooney MD Unavailable Unavailable Manjit, Duarte Mooney MD Unavailable Unavailable Manjit, Duarte Mooney MD Unavailable Unavailable Manjit, Duarte Mooney MD Unavailable Unavailable Manjit, Duarte Mooney MD Unavailable Unavailable Manjit, Duarte Mooney MD Unavailable Unavailable Manjit, Duarte Mooney MD Unavailable Unavailable Manjit, Duarte Mooney MD Unavailable Unavailable Manjit, Duarte Mooney MD Unavailable Unavailable Manjit, A Jesica MD Unavailable Unavailable Manjit, A Jesica MD Unavailable Unavailable Manjit, A Jesica MD Unavailable Unavailable Manjit, A Jesica MD Unavailable Unavailable Manjit, A Jesica MD Unavailable Unavailable Manjit, A Jesica MD Unavailable Unavailable Manjit, A Jesica MD Unavailable Unavailable Manjit, A Jesica MD Unavailable Unavailable Manjit, A Jesica MD Unavailable Unavailable Manjit, A Jesica MD Unavailable Unavailable Manjit, A Jesica MD Unavailable Unavailable Manjit, A Jesica MD Unavailable Unavailable Re-disclosure Warning The records that you are about to access may contain information from federally-assisted alcohol or drug abuse programs. If such information is present, then the following federally mandated warning applies: This information has been disclosed to you from records protected by federal confidentiality rules (42 CFR part 2). The federal rules prohibit you from making any further disclosure of this information unless further disclosure is expressly permitted by the written consent of the person to whom it pertains or as otherwise permitted by 42 CFR part 2. A general authorization for the release of medical or other information is NOT sufficient for this purpose. The Federal rules restrict any use of the information to criminally investigate or prosecute any alcohol or drug abuse patient.The records that you are about to access may contain highly sensitive health information, the redisclosure of which is protected by Article 27-F of the [facility] Public Health law. If you continue you may have access to information: Regarding HIV / AIDS; Provided by facilities licensed or operated by the [facility] Office of Mental Health; or Provided by the [facility] Office for People With Developmental Disabilities. If such information is present, then the following [facility] mandated warning applies: This information has been disclosed to you from confidential records which are protected by state law. State law prohibits you from making any further disclosure of this information without the specific written consent of the person to whom it pertains, or as otherwise permitted by law. Any unauthorized further disclosure in violation of state law may result in a fine or skilled nursing sentence or both. A general authorization for the release of medical or other information is NOT sufficient authorization for further disc losure. Allergies and Adverse Reactions Type Description Substance Reaction Status Data Source(s ) Propensity to adverse reactions PENICILLIN G Penicillin G Active [facility] Family History Family Member Name Family Member Gender Family Member Status Date o f Status Description Data Source(s) Unknown Unknown Problem [facility] ([facility] Unknown Unknown Problem [facility] ([facility] Encounters Encounter Providers Location Date Indications Data Source(s ) Outpatient Referrer: ASHLEY [email or web address] 12:00:00 AM EST - 12/29/2020 01:59:15 PM EST [facility] Outpatient Attender: ASHLEY [email or web address] 12:00:00 AM EST - 12/17/2020 09:17:07 AM EST [facility] Outpatient Gaye-SJ 12/15/2020 11:27:[address] [facility] Outpatient Referrer: ASHLEY [email or web address] 12/15/2020 12:00:[address] [facility] Outpatient Attender: Isa Capellan [facility] Main Office 12/13/2020 0 1:30:00 PM EST [facility] ([facility] Outpatient Attender: [facility] Main Office 10/13/2020 09:45:0 0 AM EST [facility] ([facility] Outpatient Attender: Jacqui Toribio RPA [place] 09/20/2020 09:00:00 AM EDT [facility] ([facility] Outpatient Attender: ASHLEY [email or web address] 08/20/2020 12:00:[address] [facility] Outpatient Attender: Jacqui Toribio RPA [facility]/[facility] 08/17/2020 09:30:00 AM EDT [facility] ([facility] Out[facility] Attender: Isa Capellan [facility] Main Office 08/10/2020 1 0:45:00 AM EDT [facility] ([facility] Outpatient<td ID="encounterTypeDescripti onID0">6 Month Follow-Up</td><td>Manuelito Stafford MD, FACS</td><td>Manuelito Stafford MD [facility]</td><td>07/30/2020</td><td>12:42PM</td><td>1:59PM</td><td><content ID="encounterDiagnosisID0-0">Macular Degeneration Nonexudative Bilateral Early Dry Stage</content>, <content ID="encounterDiagnosisID0-1">Diabetes Mellitus Type 2 - Uncomplicated, Controlled</content>, <content ID="encounterDiagnosisID0-2">Borderline Glaucoma Open Angle with Borderline Findings Both Eyes</content>, <content ID="encounterDiagnosisID0-3">Essential Hypertension</content>, <content ID="encounterDiagnosisID0-4">Taking Medication For Diabetes Long-term Use of Oral Hypoglycemics</content></td> Attender: Manuelito Nolan MD, NICK Stafford MD [facility] 07/30/2020 12:42:00 PM EDT - 07/30/2020 01:59:00 PM EDT Taking Medication For Diabetes Long-term Use of Oral HypoglycemicsMacular Degeneration Nonexudative Bilateral Early Dry StageEssential HypertensionBorderline Glaucoma Open Angle with Borderline Findi ngs Both EyesDiabetes Mellitus Type 2 - Uncomplicated, Controlled SHAE (Manuelito Nolan MD [facility]) Taking Medication For Diabetes Long-term Use of Oral Hypoglycemics Macular Degeneration Nonexudative Bilate ral Early Dry Stage Essential Hypertension Borderline Glaucoma Open Angle with Bord laci Findings Both Eyes Diabetes Mellitus Type 2 - Uncomplicated , Controlled Outpatient Attender: Chayo YOUNG Main Office 04/27/2020 03:15:00 PM EDT [facility] ([facility] Outpatient<td ID="encounterTypeDescripti onID1">6 Month Follow-Up</td><td>Manuelito Stafford MD, NICK</td><td>Manuelito Stafford MD [facility]</td><td>02/05/2020</td><td>12:35PM</td><td>1:55PM</td><td><content ID="encounterDiagnosisID1-0">Taking Medication For Diabetes Long-term Use of Oral Hypoglycemics</content>, <content ID="encounterDiagnosisID1-1">Borderline Glaucoma Open Angle with Borderline Findings Both Eyes</content>, <content ID="encounterDiagnosisID1-2">Macular Degeneration Nonexudative Bilateral Early Dry Stage</content>, <content ID="encounterDiagnosisID1-3">Essential Hypertension</content>, <content ID="[id number]">Diabetes Mellitus Type 2 - Uncomplicated, Controlled</content></td> Attender: Manuelito Nolan MD, FACS Manuelito Stafford MD [facility] 02/05/2020 12:35:00 PM EDT - 02/05/2020 01:55:00 PM EDT Taking Medication For Diabetes Long-term Use of Oral HypoglycemicsTaking Medication For Diabetes Long-term Use of Oral HypoglycemicsMacular Degeneration Nonexudative Bilateral Early Dry StageMacular Degeneration Nonexudative Bilateral Early Dry StageDiabetes Mellitus Type 2 - Uncomplicated, ControlledEssential HypertensionBorderline Glaucoma Open Angle with Borderline Findings Both EyesDiabetes Mellitus Type 2 - Uncomplicated, ControlledEssential HypertensionBorderline Glaucoma Open Angle with Borderline Findings Both Eyes SHAE (Manuelito Nolan MD [facility]) Taking Medication For Diabetes Long-term Use of Oral Hypoglycemics Taking Medication For Diabetes Long-term Use of Oral Hypoglycemics Macular Degeneration Nonexudative Bilate ral Early Dry Stage Macular Degeneration Nonexudative Bilate ral Early Dry Stage Diabetes Mellitus Type 2 - Uncomplicated , Controlled Essential Hypertension 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 Radiology Imaging Outpatient Attender: ASHLEY GATES MD [email or web address] 12/26/2019 12:00:[address] [facility] Immunizations Vaccine Date Status Description Data Source(s) New in 2012. IIV4 08/10/2020 10:59:00 AM EDT completed [facility] ([facility] Medications Medication Brand Name Start Date Product Form Dose Route Admi nistrative Instructions Pharmacy Instructions Status Indications Reaction Description Data Source(s) glimepiride 2 MG Oral Tablet GLIMEPIRIDE 01/05/2021 12:00:00 AM EST ta blet 45 TAKE ONE-HALF TABLET BY MOUTH EVERY DAY TAKE ONE-HALF TABLET BY MOUTH EVERY DAY SOLD: 01/08/2021 [facility] atorvastatin 40 MG Oral Tablet ATORVASTATIN CALCIUM 11/30/2020 1 2:00:00 AM EST tablet 30 TAKE ONE TABLET BY MOUTH EVERY D AY TAKE ONE TABLET BY MOUTH EVERY DAY SOLD: 01/03/2021 [facility] atorvastatin 40 MG Oral Tablet ATORVASTATIN CALCIUM 11/30/2020 1 2:00:00 AM EST tablet 30 TAKE ONE TABLET BY MOUTH EVERY D AY TAKE ONE TABLET BY MOUTH EVERY DAY SOLD: 12/02/2020 [facility] atorvastatin 40 MG Oral Tablet atorvastatin (LIPITOR) 40 MG tablet atorvastatin (LIPITOR) 40 MG tablet 11/29/2020 12:00:00 AM EST active TAKE ONE TABLET BY MOUTH DAILY [facility] Nystatin 100 UNT/MG Topical Powder 100,000 unit/gram NYSTATI N 11/10/2020 12:00:00 AM EST powder 15 APPLY TO AFFECTED AREA TH REE TIMES A DAY NEEDED APPLY TO AFFECTED AREA THREE TIMES A DAY NEEDED SOLD: 11/15/2020 [facility] Nystatin 100 UNT/MG Topical Powder 100,000 unit/gram NYSTATI N 11/10/2020 12:00:00 AM EST powder 15 APPLY TO AFFECTED AREA TH REE TIMES A DAY NEEDED APPLY TO AFFECTED AREA THREE TIMES A DAY NEEDED SOLD: 12/13/2020 [facility] 90 mcg/actuation 11/01/2020 12:00:00 AM EST HFA aerosol inha ler 18 INHALE 2 PUFFS BY MOUTH EVERY 4 HOURS NEEDED INHALE 2 PUFFS BY MOUTH EVERY 4 HOURS NEEDED SOLD: 12/29/2020 [facility] 90 mcg/actuation 11/01/2020 12:00:00 AM EST HFA aerosol inha ler 18 INHALE 2 PUFFS BY MOUTH EVERY 4 HOURS NEEDED INHALE 2 PUFFS BY MOUTH EVERY 4 HOURS NEEDED SOLD: 11/25/2020 [facility] 90 mcg/actuation 11/01/2020 12:00:00 AM EST HFA aerosol inha ler 18 INHALE 2 PUFFS BY MOUTH EVERY 4 HOURS NEEDED INHALE 2 PUFFS BY MOUTH EVERY 4 HOURS NEEDED SOLD: 12/13/2020 [facility] 200 ACTUAT Albuterol 0.09 MG/ACTUAT Metered Dose Inhal er [Ventolin] Ventolin HFA 11/01/2020 12:00:00 AM EST RESPIRATORY active [facility] ([facility] 90 mcg/actuation 11/01/2020 12:00:00 AM EST HFA aerosol inha ler 18 INHALE 2 PUFFS BY MOUTH EVERY 4 HOURS NEEDED INHALE 2 PUFFS BY MOUTH EVERY 4 HOURS NEEDED SOLD: 11/08/2020 [facility] 5 mg 10/29/2020 12:00:00 AM EST tablet 90 TAKE ONE TABLET BY MOUTH EVERY DAY TAKE ONE TABLET BY MOUTH EVERY DAY SOLD: 11/01/2020 [facility] clopidogrel 75 MG Oral Tablet clopidogrel (PLAVIX) 75 MG tablet clopidogrel (PLAVIX) 75 MG tablet 10/14/2020 12:00:00 AM EST active TAKE ONE TABLET BY MOUTH EVERY DAY [facility] 75 mg 10/08/2020 12:00:00 AM EST tablet 90 TAKE ONE TABLET BY MOUTH EVERY DAY TAKE ONE TABLET BY MOUTH EVERY DAY SOLD: 10/13/2020 [facility] 75 mg 10/08/2020 12:00:00 AM EST tablet 81 TAKE ONE TABLET BY MOUTH EVERY DAY TAKE ONE TABLET BY MOUTH EVERY DAY SOLD: 01/03/2021 [facility] 25 mg 09/13/2020 12:00:00 AM EDT tablet extended release 24 hr 23 TAKE ONE- HALF TABLET BY MOUTH DAILY TAKE ONE-HALF TABLET BY MOUTH DAILY SOLD: 12/07/2020 [facility] 25 mg 09/13/2020 12:00:00 AM EDT tablet extended release 24 hr 45 TAKE ONE- HALF TABLET BY MOUTH DAILY TAKE ONE-HALF TABLET BY MOUTH DAILY SOLD: 09/13/2020 [facility] 24 HR metoprolol succinate 25 MG Extende d Release Oral Tablet metoprolol succinate (TOPROL-XL) 25 MG 24 hr tablet metoprolol succinate (TOPROL-XL) 25 MG 24 hr tablet 08/20/2020 12:00:00 AM EDT 12.5 mg Oral acti ve Take 0.5 tablets (12.5 mg total) by mouth daily [facility] Nystatin 100 UNT/MG Topical Powder 100,000 unit/gram NYSTATI N 08/10/2020 12:00:00 AM EDT powder 15 APPLY TO AFFECTED AREA TH REE TIMES A DAY NEEDED APPLY TO AFFECTED AREA THREE TIMES A DAY NEEDED SOLD: 08/13/2020 [facility] Nystatin 100 UNT/MG Topical Powder 100,000 unit/gram NYSTATI N 08/10/2020 12:00:00 AM EDT powder 15 APPLY TO AFFECTED AREA TH REE TIMES A DAY NEEDED APPLY TO AFFECTED AREA THREE TIMES A DAY NEEDED SOLD: 09/13/2020 [facility] Nystatin 100 UNT/MG Topical Powder 100,000 unit/gram NYSTATI N 08/10/2020 12:00:00 AM EDT powder 15 APPLY TO AFFECTED AREA TH REE TIMES A DAY NEEDED APPLY TO AFFECTED AREA THREE TIMES A DAY NEEDED SOLD: 10/13/2020 [facility] 90 mcg/actuation 08/10/2020 12:00:00 AM EDT HFA aerosol inha ler 18 INHALE 2 PUFFS BY MOUTH EVERY 4 HOURS NEEDED INHALE 2 PUFFS BY MOUTH EVERY 4 HOURS NEEDED SOLD: 09/29/2020 [facility] 90 mcg/actuation 08/10/2020 12:00:00 AM EDT HFA aerosol inha ler 18 INHALE 2 PUFFS BY MOUTH EVERY 4 HOURS NEEDED INHALE 2 PUFFS BY MOUTH EVERY 4 HOURS NEEDED SOLD: 08/29/2020 [facility] 90 mcg/actuation 08/10/2020 12:00:00 AM EDT HFA aerosol inha ler 18 INHALE 2 PUFFS BY MOUTH EVERY 4 HOURS NEEDED INHALE 2 PUFFS BY MOUTH EVERY 4 HOURS NEEDED SOLD: 10/18/2020 [facility] 90 mcg/actuation 08/10/2020 12:00:00 AM EDT HFA aerosol inha ler 18 INHALE 2 PUFFS BY MOUTH EVERY 4 HOURS NEEDED INHALE 2 PUFFS BY MOUTH EVERY 4 HOURS NEEDED SOLD: 09/13/2020 [facility] 90 mcg/actuation 08/10/2020 12:00:00 AM EDT HFA aerosol inha ler 18 INHALE 2 PUFFS BY MOUTH EVERY 4 HOURS NEEDED INHALE 2 PUFFS BY MOUTH EVERY 4 HOURS NEEDED SOLD: 08/13/2020 [facility] 100 mg 07/02/2020 12:00:00 AM EDT tablet 90 TAKE ONE TABLET BY MOUTH EVERY DAY TAKE ONE TABLET BY MOUTH EVERY DAY SOLD: 01/03/2021 [facility] 100 mg 07/02/2020 12:00:00 AM EDT tablet 90 TAKE ONE TABLET BY MOUTH EVERY DAY TAKE ONE TABLET BY MOUTH EVERY DAY SOLD: 10/04/2020 [facility] 100 mg 07/02/2020 12:00:00 AM EDT tablet 90 TAKE ONE TABLET BY MOUTH EVERY DAY TAKE ONE TABLET BY MOUTH EVERY DAY SOLD: 07/06/2020 [facility] atorvastatin 40 MG Oral Tablet ATORVASTATIN CALCIUM 06/08/2020 1 2:00:00 AM EDT tablet 21 TAKE ONE TABLET BY MOUTH DAILY TAKE ONE T ABLET BY MOUTH DAILY SOLD: 10/18/2020 [facility] 40 mg 06/08/2020 12:00:00 AM EDT tablet 30 TAKE ONE TABLET BY MOUTH DAILY TAKE ONE TABLET BY MOUTH DAILY SOLD: 06/15/2020 [facility] 40 mg 06/08/2020 12:00:00 AM EDT tablet 30 TAKE ONE TABLET BY MOUTH DAILY TAKE ONE TABLET BY MOUTH DAILY SOLD: 07/16/2020 [facility] atorvastatin 40 MG Oral Tablet ATORVASTATIN CALCIUM 06/08/2020 1 2:00:00 AM EDT tablet 21 TAKE ONE TABLET BY MOUTH DAILY TAKE ONE T ABLET BY MOUTH DAILY SOLD: 11/08/2020 [facility] atorvastatin 40 MG Oral Tablet ATORVASTATIN CALCIUM 06/08/2020 1 2:00:00 AM EDT tablet 21 TAKE ONE TABLET BY MOUTH DAILY TAKE ONE T ABLET BY MOUTH DAILY SOLD: 09/08/2020 [facility] atorvastatin 40 MG Oral Tablet ATORVASTATIN CALCIUM 06/08/2020 1 2:00:00 AM EDT tablet 21 TAKE ONE TABLET BY MOUTH DAILY TAKE ONE T ABLET BY MOUTH DAILY SOLD: 09/29/2020 [facility] atorvastatin 40 MG Oral Tablet ATORVASTATIN CALCIUM 06/08/2020 1 2:00:00 AM EDT tablet 21 TAKE ONE TABLET BY MOUTH DAILY TAKE ONE T ABLET BY MOUTH DAILY SOLD: 08/13/2020 [facility] 50-500 mg 04/16/2020 12:00:00 AM EDT tablet 180 TAKE ONE TABLET BY MOUTH TWICE A DAY TAKE ONE TABLET BY MOUTH TWICE A DAY SOLD: 10/18/2020 [facility] 50-500 mg 04/16/2020 12:00:00 AM EDT tablet 180 TAKE ONE TABLET BY MOUTH TWICE A DAY TAKE ONE TABLET BY MOUTH TWICE A DAY SOLD: 07/21/2020 [facility] 50-500 mg 04/16/2020 12:00:00 AM EDT tablet 180 TAKE ONE TABLET BY MOUTH TWICE A DAY TAKE ONE TABLET BY MOUTH TWICE A DAY SOLD: 04/22/2020 [facility] 90 mcg/actuation 04/06/2020 12:00:00 AM EDT HFA aerosol inha ler 18 INHALE TWO PUFFS BY MOUTH EVERY 4 HOURS NEEDED INHALE TWO PUFFS BY MOUTH EVERY 4 HOURS NEEDED SOLD: 07/21/2020 [facility] 90 mcg/actuation 04/06/2020 12:00:00 AM EDT HFA aerosol inha ler 18 INHALE TWO PUFFS BY MOUTH EVERY 4 HOURS NEEDED INHALE TWO PUFFS BY MOUTH EVERY 4 HOURS NEEDED SOLD: 05/27/2020 [facility] 90 mcg/actuation 04/06/2020 12:00:00 AM EDT HFA aerosol inha ler 18 INHALE TWO PUFFS BY MOUTH EVERY 4 HOURS NEEDED INHALE TWO PUFFS BY MOUTH EVERY 4 HOURS NEEDED SOLD: 06/24/2020 [facility] 90 mcg/actuation 04/06/2020 12:00:00 AM EDT HFA aerosol inha ler 18 INHALE TWO PUFFS BY MOUTH EVERY 4 HOURS NEEDED INHALE TWO PUFFS BY MOUTH EVERY 4 HOURS NEEDED SOLD: 04/08/2020 [facility] 90 mcg/actuation 04/06/2020 12:00:00 AM EDT HFA aerosol inha ler 18 INHALE TWO PUFFS BY MOUTH EVERY 4 HOURS NEEDED INHALE TWO PUFFS BY MOUTH EVERY 4 HOURS NEEDED SOLD: 05/01/2020 [facility] 75 mg 03/24/2020 12:00:00 AM EDT tablet 30 TAKE ONE TABLET BY MOUTH EVERY DAY TAKE ONE TABLET BY MOUTH EVERY DAY SOLD: 09/08/2020 [facility] 75 mg 03/24/2020 12:00:00 AM EDT tablet 30 TAKE ONE TABLET BY MOUTH EVERY DAY TAKE ONE TABLET BY MOUTH EVERY DAY SOLD: 04/01/2020 [facility] 75 mg 03/24/2020 12:00:00 AM EDT tablet 30 TAKE ONE TABLET BY MOUTH EVERY DAY TAKE ONE TABLET BY MOUTH EVERY DAY SOLD: 06/05/2020 [facility] 75 mg 03/24/2020 12:00:00 AM EDT tablet 30 TAKE ONE TABLET BY MOUTH EVERY DAY TAKE ONE TABLET BY MOUTH EVERY DAY SOLD: 07/06/2020 [facility] 75 mg 03/24/2020 12:00:00 AM EDT tablet 30 TAKE ONE TABLET BY MOUTH EVERY DAY TAKE ONE TABLET BY MOUTH EVERY DAY SOLD: 08/06/2020 [facility] 75 mg 03/24/2020 12:00:00 AM EDT tablet 30 TAKE ONE TABLET BY MOUTH EVERY DAY TAKE ONE TABLET BY MOUTH EVERY DAY SOLD: 05/01/2020 [facility] 25 mg 03/08/2020 12:00:00 AM EDT tablet extended release 24 hr 45 TAKE ONE- HALF TABLET BY MOUTH EVERY DAY TAKE ONE-HALF TABLET BY MOUTH EVERY DAY SOLD: 03/11/2020 [facility] 25 mg 03/08/2020 12:00:00 AM EDT tablet extended release 24 hr 45 TAKE ONE- HALF TABLET BY MOUTH EVERY DAY TAKE ONE-HALF TABLET BY MOUTH EVERY DAY SOLD: 06/05/2020 [facility] 25 mg 03/08/2020 12:00:00 AM EDT tablet extended release 24 hr 1 TAKE ONE- HALF TABLET BY MOUTH EVERY DAY TAKE ONE-HALF TABLET BY MOUTH EVERY DAY SOLD: 09/08/2020 [facility] 25 mg 03/08/2020 12:00:00 AM EDT tablet extended release 24 hr 1 TAKE ONE- HALF TABLET BY MOUTH EVERY DAY TAKE ONE-HALF TABLET BY MOUTH EVERY DAY SOLD: 09/13/2020 [facility] glimepiride 2 MG Oral Tablet GLIMEPIRIDE 02/24/2020 12:00:00 AM EDT ta blet 15 TAKE ONE-HALF TABLET BY MOUTH EVERY DAY TAKE ONE-HALF TABLET BY MOUTH EVERY DAY SOLD: 11/30/2020 [facility] glimepiride 2 MG Oral Tablet GLIMEPIRIDE 02/24/2020 12:00:00 AM EDT ta blet 15 TAKE ONE-HALF TABLET BY MOUTH EVERY DAY TAKE ONE-HALF TABLET BY MOUTH EVERY DAY SOLD: 10/04/2020 [facility] glimepiride 2 MG Oral Tablet GLIMEPIRIDE 02/24/2020 12:00:00 AM EDT ta blet 45 TAKE ONE-HALF TABLET BY MOUTH EVERY DAY TAKE ONE-HALF TABLET BY MOUTH EVERY DAY SOLD: 05/27/2020 [facility] glimepiride 2 MG Oral Tablet GLIMEPIRIDE 02/24/2020 12:00:00 AM EDT ta blet 15 TAKE ONE-HALF TABLET BY MOUTH EVERY DAY TAKE ONE-HALF TABLET BY MOUTH EVERY DAY SOLD: 09/08/2020 [facility] glimepiride 2 MG Oral Tablet GLIMEPIRIDE 02/24/2020 12:00:00 AM EDT ta blet 15 TAKE ONE-HALF TABLET BY MOUTH EVERY DAY TAKE ONE-HALF TABLET BY MOUTH EVERY DAY SOLD: 11/01/2020 [facility] glimepiride 2 MG Oral Tablet GLIMEPIRIDE 02/24/2020 12:00:00 AM EDT ta blet 6 TAKE ONE-HALF TABLET BY MOUTH EVERY DAY TAKE ONE-HALF TABLET BY MOUTH EVERY DAY SOLD: 08/27/2020 [facility] glimepiride 2 MG Oral Tablet GLIMEPIRIDE 02/24/2020 12:00:00 AM EDT ta blet 45 TAKE ONE-HALF TABLET BY MOUTH EVERY DAY TAKE ONE-HALF TABLET BY MOUTH EVERY DAY SOLD: 02/26/2020 [facility] glimepiride 2 MG Oral Tablet GLIMEPIRIDE 02/24/2020 12:00:00 AM EDT ta blet 4 TAKE ONE-HALF TABLET BY MOUTH EVERY DAY TAKE ONE-HALF TABLET BY MOUTH EVERY DAY SOLD: 12/29/2020 [facility] 40 mg 02/09/2020 12:00:00 AM EDT tablet 30 TAKE ONE TABLET BY MOUTH EVERY DAY TAKE ONE TABLET BY MOUTH EVERY DAY SOLD: 05/11/2020 [facility] 40 mg 02/09/2020 12:00:00 AM EDT tablet 30 TAKE ONE TABLET BY MOUTH EVERY DAY TAKE ONE TABLET BY MOUTH EVERY DAY SOLD: 02/12/2020 [facility] 40 mg 02/09/2020 12:00:00 AM EDT tablet 30 TAKE ONE TABLET BY MOUTH EVERY DAY TAKE ONE TABLET BY MOUTH EVERY DAY SOLD: 03/11/2020 [facility] 40 mg 02/09/2020 12:00:00 AM EDT tablet 30 TAKE ONE TABLET BY MOUTH EVERY DAY TAKE ONE TABLET BY MOUTH EVERY DAY SOLD: 04/08/2020 [facility] 250 mg 02/05/2020 12:00:00 AM EDT tablet 14 TAKE ONE TABLET BY MOUTH TWICE A DAY TAKE ONE TABLET BY MOUTH TWICE A DAY SOLD: 02/05/2020 [facility] Clarithromycin 250 MG Oral Tablet Clarithromycin 02/05/2020 12:00:00 AM EDT ORAL active [facility] ([facility] 4 mg 02/05/2020 12:00:00 AM EDT tablets,dose pack 21 DIRECTED WITH FOOD TAKE ALL OF DAYS TABLETS IN [place] DIRECTED WITH FOOD TAKE ALL OF DAYS TABLETS IN [facility] SOLD: 02/05/2020 [facility] Medrol Medrol 02/05/2020 12:00:00 AM EDT active [facility] ([facility] 5 mg 11/26/2019 12:00:00 AM EST tablet 11 TAKE ONE TABLET BY MOUTH EVERY DAY TAKE ONE TABLET BY MOUTH EVERY DAY SOLD: 08/27/2020 [facility] 5 mg 11/26/2019 12:00:00 AM EST tablet 90 TAKE ONE TABLET BY MOUTH EVERY DAY TAKE ONE TABLET BY MOUTH EVERY DAY SOLD: 05/27/2020 [facility] 5 mg 11/26/2019 12:00:00 AM EST tablet 27 TAKE ONE TABLET BY MOUTH EVERY DAY TAKE ONE TABLET BY MOUTH EVERY DAY SOLD: 09/08/2020 [facility] 5 mg 11/26/2019 12:00:00 AM EST tablet 90 TAKE ONE TABLET BY MOUTH EVERY DAY TAKE ONE TABLET BY MOUTH EVERY DAY SOLD: 11/28/2019 [facility] 5 mg 11/26/2019 12:00:00 AM EST tablet 27 TAKE ONE TABLET BY MOUTH EVERY DAY TAKE ONE TABLET BY MOUTH EVERY DAY SOLD: 10/04/2020 [facility] 5 mg 11/26/2019 12:00:00 AM EST tablet 90 TAKE ONE TABLET BY MOUTH EVERY DAY TAKE ONE TABLET BY MOUTH EVERY DAY SOLD: 02/26/2020 [facility] 90 mcg/actuation 11/12/2019 12:00:00 AM EST HFA aerosol inha ler 18 INHALE TWO PUFFS BY MOUTH EVERY 4 HOURS NEEDED INHALE TWO PUFFS BY MOUTH EVERY 4 HOURS NEEDED SOLD: 11/14/2019 [facility] 75 mg 10/02/2019 12:00:00 AM EST tablet 30 TAKE ONE TABLET BY MOUTH EVERY DAY TAKE ONE TABLET BY MOUTH EVERY DAY SOLD: 01/29/2020 [facility] 75 mg 10/02/2019 12:00:00 AM EST tablet 30 TAKE ONE TABLET BY MOUTH EVERY DAY TAKE ONE TABLET BY MOUTH EVERY DAY SOLD: 12/31/2019 [facility] 75 mg 10/02/2019 12:00:00 AM EST tablet 30 TAKE ONE TABLET BY MOUTH EVERY DAY TAKE ONE TABLET BY MOUTH EVERY DAY SOLD: 02/26/2020 [facility] 75 mg 10/02/2019 12:00:00 AM EST tablet 30 TAKE ONE TABLET BY MOUTH EVERY DAY TAKE ONE TABLET BY MOUTH EVERY DAY SOLD: 12/05/2019 [facility] 25 mg 06/02/2019 12:00:00 AM EDT tablet extended release 24 hr 45 TAKE ONE- HALF TABLET BY MOUTH EVERY DAY TAKE ONE-HALF TABLET BY MOUTH EVERY DAY SOLD: 12/05/2019 [facility] 100 mg 06/02/2019 12:00:00 AM EDT tablet 90 TAKE ONE TABLET BY MOUTH EVERY DAY TAKE ONE TABLET BY MOUTH EVERY DAY SOLD: 12/31/2019 [facility] 100 mg 06/02/2019 12:00:00 AM EDT tablet 90 TAKE ONE TABLET BY MOUTH EVERY DAY TAKE ONE TABLET BY MOUTH EVERY DAY SOLD: 04/01/2020 [facility] 40 mg 05/01/2019 12:00:00 AM EDT tablet 90 TAKE ONE TABLET BY MOUTH EVERY DAY TAKE ONE TABLET BY MOUTH EVERY DAY SOLD: 11/14/2019 [facility] 50-500 mg 03/17/2019 12:00:00 AM EDT tablet 180 TAKE ONE TABLET BY MOUTH TWICE A DAY TAKE ONE TABLET BY MOUTH TWICE A DAY SOLD: 01/29/2020 [facility] 2 mg 02/11/2019 12:00:00 AM EDT tablet 45 TAKE ONE-HALF TABLET BY MOUTH EVERY DAY TAKE ONE-HALF TABLET BY MOUTH EVERY DAY SOLD: 11/28/2019 [facility] Insurance Providers Payer name Policy type / Coverage type Policy ID Covered democrat ID Covered democrat's relationship to reyes Policy Reyes Plan Information MEDICARE [id number] SP [id number] [facility] OPTIONS [id number] SP [id number] [facility] [id number] [facility] [id number] MEDICARE [id number] Jackie [id number] [id number] [facility] [id number] MEDICARE [id number] [employer] LIFETIME BENEFIT SOLU [id number] Jackie [id number] Medicare Part B of [facility] Other 0 Se lf 0 Medicare Part B of [facility] Other 0 Se lf 0 AARP O [id number] S [id number] 111 MEDICARE C [id number] S [id number] [employer] LIFETIME BENEFIT SOLU [id number] Jackie [id number] Aarp Medigap Part B [id number] Self [id number] [place] Primary [id number] Self [id number] MEDICARE [id number] SP [id number] [id number] [employer]ARP HE[employer] CARE OPTIONS [id number] SP [id number] MEDICARE [id number] SP [id number] A[employer] Medigap Part B [id number] Self [id number] [place] Primary [id number] Self [id number] Aarp Medigap Part B [id number] Self [id number] [place] Primary [id number] Self [id number] AARP HEALTH CARE OPTIONS [id number] SP [id number] Lifetime Benefit Solution Medigap Part B [id number] Self [id number] [place] Primary [id number] Self [id number] LIFETIME BENEFIT SOLUTIONS [id number] SP [id number] Lifetime Benefit Solution Commercial [id number] Self [id number] LIFETIME BENEFIT SOLUTIO O [id number] O [id number] Lifetime Benefit Solution Commercial [id number] Self [id number] LIFETIME BENEFIT SOLUTIONS [id number] SP [id number] Lifetime Benefit Solution Commercial [id number] Self [id number] Lifetime Benefit Solution Commercial [id number] Self [id number] Lifetime Benefit Solution Commercial Self Lifetime Benefit Solution Commercial Self Lifetime Benefit Solution Commercial Self LIFETIME BENEFIT SOLUTIONS [id number] SP [id number] EBS [employer]CO [id number] Jackie [id number] [employer] P [id number] S [id number] Problems, Conditions, and Diagnoses Code Display Name Description Problem Type Effective Dates Data Source(s) Z01.818 Pre-op evaluation Pre-op evaluation [id number] 12/18/2020 12:00:00 AM [facility] I31.3 Pericardial effusion Pericardial effusion [id number] 12/15/2020 12:00:00 AM [facility] [id number] Taking Medication For Diabetes Long-term Use of Oral Hypoglycemics Taking Medication For Diabetes Long-term Use of Oral Hypoglycemics Finding 02/05/2020 12:00:00 AM EDT [facility] (Manuelito Nolan MD [facility]) Z79.84 Taking Medication For Diabetes Long-term Use of Oral Hypoglycemics Taking Medication For Diabetes Long-term Use of Oral Hypoglycemics Finding 02/05/2020 12:00:00 AM EDT [facility] (Manuelito Nolan MD [facility]) Z01.818 Encounter for other preprocedural examin ation Encounter for other preprocedural examin Diagnosis 12/29/2020 08:17:17 AM [facility] I10 Essential (primary) hypertension Essential (primary) h ypertension Diagnosis 12/29/2020 08:17:17 AM [facility] E11.9 Type 2 diabetes mellitus without complic ations Type 2 diabetes mellitus without complic Diagnosis 12/29/2020 08:17:17 AM [facility] E78.5 Hyperlipidemia, unspecified Hyperlipidemia, unspecifie d Diagnosis 12/29/2020 08:17:17 AM [facility] I25.10 Atherosclerotic heart diseas e of [place] coronary artery without angina pectoris Atherosclerotic heart disease of [place] Diagnosis 12/29/2020 08:17:17 AM [facility] I31.3 Pericardial effusion (noninflammatory) P ericardial effusion (noninflammatory) Diagnosis 12/17/2020 08:21:04 AM [facility] I73.9 Peripheral vascular disease, unspecified Peripheral vascular disease, unspecified Diagnosis 12/17/2020 08:21:04 AM [facility] E66.9 Obesity, unspecified Obesity, unspecified Diagnosis 12/17/2020 08:21:[address] [facility] M19.90 Unspecified osteoarthritis, unspecified site Unspecified osteoarthritis, unspecified Diagnosis 12/17/2020 08:21:[address] [facility] Surgeries/Procedures Procedure Description Date Indications Data Source(s) ECG ROUTINE ECG W/LEAST 12 LDS W/I&R POCT AMB EKG Routine 12/18/2020 5:52 PM EST Coronary artery disease involving [place] heart without angina pectoris, unspecified vessel or lesion type Benign essential hypertension Pre-op evaluation 12/18/2020 10:52:00 PM EST Pre-op evalua tionBenign essential hypertensionCoronary artery disease involving [place] heart without angina pectoris, unspecified vessel or lesion type [facility] Pre-op evaluation Benign essential hypertension Coronary artery disease involving [place] heart without angina pectoris, unspecified vessel or lesion type Catheter Placement Arterial System Init 3RD Order Abdom/Pelv /Low 09/13/2020 12:00:00 AM EDT [facility] ([facility]) Moderate Sedation Services; Same Phys Intl 15 Mins; PT >= 5 Years 09/13/2020 12:00:00 AM EDT [facility] ([facility]) Diabetic Foot Exam 08/10/2020 12:00:00 AM EDT [facility] ([facility] COMPUTERIZED OPHTHALMIC IMAGING OPTIC NERVE Scodi, opt ic nerve with interpretation and report ([place]) 07/30/2020 12:00:00 AM EDT RIP MAYEN (Manuelito Nolan MD [facility]) Comprehensive eye exam established patient (25) Compre hensive eye exam established patient (25) 07/30/2020 12:00:00 AM EDT SHAE (Manuelito Nolan MD [facility]) Surgical / procedural history Stents 20 15, Gallbladder removed, Carpal Tunnel Surgery. . Femoral Endarterectomy left leg 07/01/19 Surgical / procedural history Stents 2015, Gallbladder removed, Carpal Tunnel Surgery. . Femoral Endarterectomy left leg 07/01/19 02/05/2020 12:00:00 AM EDT SHAE (Manuelito Nolan MD [facility]) Intermediate Eye Exam Established Patient Intermediate Eye Exam Established Patient 02/05/2020 12:00:00 AM EDT SHAE (Goyo id Duarte Nolan MD [facility]) Reported medical history Reported medical history 02/05/2020 12:00: 00 AM EDT [facility]AE (Manuelito Nolan MD [facility]) History of hypertension History of hypertension 02/05/2020 12:00:00 AM EDT [facility] (Manuelito Nolan MD [facility]) History of hyperlipidemia History of hyperlipidemia 02/05/2020 1 2:00:00 AM EDT [facility] (Manuelito Nolan MD [facility]) History of arthritis History of arthritis 02/05/2020 12:00:00 AM ED T [facility]AE (Manuelito Nolan MD [facility]) Currently wearing eyeglasses Currently wearing eyeglasses 12:00:00 AM EDT [facility] (Manuelito Nolan MD [facility]) No recent change in medical history No recent change in medi mehran history 02/05/2020 12:00:00 AM EDT SHAE (Manuelito lewis MD [facility]) History of diabetes mellitus Type 2, Dr Mindy Saravia A1c: 6.2, FBS: does not check History of diabetes mellitus Type 2, Dr Mindy Saravia A1c: 6.2, FBS: does not check 02/05/2020 12:00:00 AM EDT [facility] (Goyo Nolan MD [facility]) History of the retina was abnormal 07/31/2019 History o f the retina was abnormal 07/31/2019 02/05/2020 12:00:00 AM EDT [facility] (Goyo Nolan MD [facility]) Intermediate Eye Exam Established Patient Intermediate Eye Exam Established Patient 02/05/2020 12:00:00 AM EDT [facility] (Goyo Nolan MD [facility]) Results ID Date Data Source [id number] 01/05/2021 10:00:00 AM EST [facility] Name Value Range Interpretation Code Description Data Evita rce(s) Supporting Document(s) SARS coronavirus 2 RNA Not Detected [facility] [place] This lab was ordered by [facility] and reported by [facility]. ID Date Data Source [id number] 12/18/2020 04:05:00 AM EST [facility] Name Value Range Interpretation Code Description Data Evita rce(s) Supporting Document(s) WBC 7.7 x10E3/uL 3.4-10.8 [facility] RBC 4.12 x10E6/uL 3.77-5.28 [facility] Hemoglobin 12.7 g/dL 11.1-15.9 [facility] Hematocrit 37.0 % 34.0-46.6 [facility] MCV 90 fL 79-97 [facility] MCH 30.8 pg 26.6-33.0 [facility] MCHC 34.3 g/dL 31.5-35.7 [facility] RDW 14.5 % 11.7-15.4 [facility] Platelets 185 x10E3/uL 150-450 [facility] Neutrophils 66 % Not Estab. [facility] Lymphs 26 % Not Estab. [facility] Monocytes 5 % Not Estab. [facility] Eos 2 % Not Estab. [facility] Basos 0 % Not Estab. [facility] Neutrophils (Absolute) 5.1 x10E3/uL 1.4-7.0 [facility] Lymphs (Absolute) 2.0 x10E3/uL 0.7-3.1 [facility] Monocytes(Absolute) 0.4 x10E3/uL 0.1-0.9 [facility] Eos (Absolute) 0.1 x10E3/uL 0.0-0.4 [facility] Baso (Absolute) 0.0 x10E3/uL 0.0-0.2 [facility] Immature Granulocytes 1 % Not Estab. [facility] Immature Grans (Abs) 0.1 x10E3/uL 0.0-0.1 [facility] ID Date Data Source [id number] 12/18/2020 05:05:00 AM EST [facility] Name Value Range Interpretation Code Description Data Evita rce(s) Supporting Document(s) Glucose 178 mg/dL 65-99 Above high normal [facility] BUN 17 mg/dL 8-27 [facility] Creatinine 0.90 mg/dL 0.57-1.00 [facility] eGFR If NonAfricn Am 66 mL/min/1.73 >59 [facility] eGFR If Africn Am 76 mL/min/1.73 >59 [facility] BUN/Creatinine Ratio 19 12-28 [facility] Sodium 140 mmol/L 134-144 [facility] Potassium 4.2 mmol/L 3.5-5.2 [facility] Chloride 104 mmol/L 96-106 [facility] Carbon Dioxide, Total 22 mmol/L 20-29 [facility] Calcium 9.4 mg/dL 8.7-10.3 [facility] Protein, Total 7.3 g/dL 6.0-8.5 [facility] Albumin 4.5 g/dL 3.8-4.8 [facility] Globulin, Total 2.8 g/dL 1.5-4.5 [facility] A/G Ratio 1.6 1.2-2.2 [facility] Bilirubin, Total 0.3 mg/dL 0.0-1.2 [facility] Alkaline Phosphatase 66 IU/L 39-117 [facility] AST (SGOT) 31 IU/L 0-40 [facility] ALT (SGPT) 28 IU/L 0-32 [facility] ID Date Data Source [id number] 12/18/2020 06:06:00 AM EST [facility] Name Value Range Interpretation Code Description Data Evita rce(s) Supporting Document(s) T4,Free(Direct) 1.12 ng/dL 0.82-1.77 [facility] ID Date Data Source [id number] 12/18/2020 07:05:00 AM EST [facility] Name Value Range Interpretation Code Description Data Evita rce(s) Supporting Document(s) Hemoglobin A1c 7.2 % 4.8-5.6 Above high normal [facility] Prediabetes: 5.7 - 6.4 Diabetes: >6.4 Glycemic control for adults with diabetes: <7.0 ID Date Data Source [id number] 12/18/2020 08:08:00 AM EST [facility] Name Value Range Interpretation Code Description Data Evita rce(s) Supporting Document(s) Specific [place] 1.019 1.005-1.030 [facility] pH 5.5 5.0-7.5 [facility] Urine-Color Yellow Yellow [facility] Appearance Clear Clear [facility] WBC Esterase Negative Negative [facility] Protein Trace Negative/Trace [facility] Glucose Negative Negative [facility] Ketones Negative Negative [facility] Occult Blood Negative Negative [facility] Bilirubin Negative Negative [facility] Urobilinogen,Semi-Qn 0.2 mg/dL 0.2-1.0 [facility] Nitrite, Urine Negative Negative [facility] Microscopic Examination [facility] Microscopic follows if indicated. Microscopic Examination See below: [facility] ID Date Data Source [id number] 12/18/2020 11:05:00 PM EST [facility] Name Value Range Interpretation Code Description Data Evita rce(s) Supporting Document(s) Urine Culture, Routine Final report [facility] ID Date Data Source [id number] 12/18/2020 05:05:00 AM EST [facility] Name Value Range Interpretation Code Description Data Evita rce(s) Supporting Document(s) Cholesterol, Total 122 mg/dL 100-199 [facility] Triglycerides 224 mg/dL 0-149 Above high normal [facility] HDL Cholesterol 40 mg/dL >39 [facility] VLDL Cholesterol Mehran 36 mg/dL 5-40 [facility] LDL Chol Calc ([facility]) 46 mg/dL 0-99 [facility] ID Date Data Source [id number] 12/18/2020 06:06:00 AM EST [facility] Name Value Range Interpretation Code Description Data Evita rce(s) Supporting Document(s) TSH 1.110 uIU/mL 0.450-4.500 [facility] ID Date Data Source [id number] 12/18/2020 08:08:00 AM EST [facility] Name Value Range Interpretation Code Description Data Evita rce(s) Supporting Document(s) WBC 0-5 /hpf 0 - 5 [facility] RBC None seen /hpf 0 - 2 [facility] Epithelial Cells (non renal) 0-10 /hpf 0 - 10 [facility] Mucus Threads Present Not Estab. [facility] Bacteria Few None seen/Few [facility] ID Date Data Source [id number] 12/18/2020 11:05:00 PM EST [facility] Name Value Range Interpretation Code Description Data Evita rce(s) Supporting Document(s) Result 1 No growth [facility] ID Date Data Source [id number] 12/15/2020 11:20:[address] 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 [file] ICAgICAgICAgICAgICAgICAgICAgICAgICAgICAgICAgICAgICAgICAgICAgICAgICAgICAgICAgICAg QRNcSZXeICLlDN5ENFStBDZdUTNuGFUtCTVeLBZyDMQeUSHwLBKpLUNzLIEbDXAtBYZiTXCwYSPoNHGk ICAgICAgICAgICAgICAgICAgICAgICAgICAgICAgIC WqRPDbHAFcAMUgFALkEGOgSQSzIG9YHEUlUOVpLXMvMKAiICByVQYuMOBkKWQsYGKsHQXcJARnVYAjVH AgICAgICAgICAgICAgICAgICAgICAgICAgICAgICAgICAgICAgICAgICAgICAgICAgICAgICAgICAgIC KpCP2QTPDbRXHuIWGtUWGbMEKeEGBhQRDwDWZoBZUp ICAgICAgICAgICAgICAgICAgICAgICAgICAgICAgICAgICAgICAgICAgICAgICAgICAgICAgICAgICAg DATaVOYuXJLnVSWlTV6ROAWnWUAiPJKhQAOrLUGhQSCaCKQlCRAcPWWiPLRfMWAxJRJrMGVqWVKzXEPm ICAgICAgICAgICAgICAgICAgICAgICAgICAgICAgIC GbIZRxNLOeNOPbNRYsWBEfGNVlBESwSP6OFPIpXPMiZUQwCDOlTKRwZAHjTCFdZGOxNBMcTABeDPTcQL AgICAgICAgICAgICAgICAgICAgICAgICAgICAgICAgICAgICAgICAgICAgICAgICAgICAgICAgICAgIC MaLDAaYT6EJDYvJGJbYCWdTWQmZEQsNIBhNDSqKCJx ICAgICAgICAgICAgICAgICAgICAgICAgICAgICAgICAgICAgICAgICAgICAgICAgICAgICAgICAgICAg HSHzCYFoLJTiEJBxTUXeHD1TNBHzNXXdYWLnJUWiHYUyUWJjTUMwCGJsMSIqHDUfTLYqCGYtAKBiVGGt ICAgICAgICAgICAgICAgICAgICAgICAgICAgICAgIC LsQNErBCSoUYSkZZFdUEYfVJJuLLZvOBLbKJ2NFWXgZPApBSHkYCHxMKOrIPPlADJdCUNmJYQyVJPhZG AgICAgICAgICAgICAgICAgICAgICAgICAgICAgICAgICAgICAgICAgICAgICAgICAgICAgICAgICAgIC YjJTZyDBZvZW3PZCUtGAEmKHFvAHPgWNKrANWhGNZy ICAgICAgICAgICAgICAgICAgICAgICAgICAgICAgICAgICAgICAgICAgICAgICAgICAgICAgICAgICAg OVVrWWBgXVTlEGNuAHZkKNWoOC3SOT30yKGes4C6CNHzRJ8vmsm/Wg4RUWypqgFxbAImEG5TTyLvXL9b fw2EWlVuEO8rjm5MHByKLePhO1S5lBWaYVBgVHITJz DtQ09jNDhlEu77FEpsJEXiAgOaFSq1Rc2WGjJzW6ayUEKdNsB1SEHgJsW2JHInEqDbYBekQH2Rg2ClfM AyDQo+Fl4EMU9vl8TyQXd2EMRoUV3lka6HWWvVJwNzV1U6jQMaI7N7SKpsZg9OIUHeHJWbZvtvWTKJSF asSL0QAG7ekhN8QF4XoCJtCCUqAWMmxWIkKGi7G61v aWRaMSobJW8RIGU+Halima+Sg6LQMUeXWNkCVIoAbHmBAAKBbCpM50lzECcNMOhPRY7OMCtBx6OFLMwD1Yj dsSmxLldhqEfXPYkBQJAMH6OVTstncBogWNxtHqcDM90lEmmIC0YXj0CGbXkXE5dua1IhXYzYu1IGHO0 JZ6NQSJbKLYpTSVcUOJ3BWTmYkGkIYskHGOxGULqNX N1RUYcZOJxNI5DKwZyTYFpLxzeDLAeEUPpAQPbma3DFGArYUT6ZXLtLkFjHIIoXOQlQUbkSGMuGGXhPA f9SUAwWKXpSP6MTbMoKFVcVII7SCYqFWUoYLLlte1YSSSuGAAgWnvaNAZhJOTcIHJfCKkyBLJlPGZ7YB qhUDAySAUyWH9YEzVsQVGrDBAsSChtLVWmXVBimd4U NIPhGIHaOaN3XqDpBEVyRIYrFXgrCEPyDRI0KCQmCSZkMGMkHL6NXeIpPOYoCAj4TdIqILFqUDPoxt1Z IEUeROKdOZM6IhVfFZAlGSWaEBvoIFUwDJX1Yer1XIDsWAZtDD9LEjYrZKZkUQj0ZGCcAUMzLJJwpo0D WAWbRPWlCjcaDSXhMQUxISCfQXrjMOYdBZZ1PRS8HU HoKWDnZK8WFiMnNGDuDWZqZualYEFyZRSbvw0CMEScUDVjQJXfFcPtKFRsTBOrROgtXUTmOIP7OzQ9JX QtOJPpMX2SZkQlSBJiAUG4WCVhUWKxNLJlmx1PHIJxDMVbOLx6BXTmPTVaQULlGJksORQbRAL4WLK9IG HqUFNqYS7AVsWpCEAtNiV5FduhSDPsQYSkxp6KYSCc RRYsBIi6JaUoGTWjEXGySFwdAHKsZXM4FTW6ZRHcWGUnBS2MVlYfRFBzRji8AgAqLBUtEPJsmc8KNFDm DZIkOAN8FYFxAGLlYPLyCYxxYBDbNWDrQEA7NHLpHSCoGT3HSyXlPCKcAdckCHRrBDQkYPPqjl8APBTq PXUbBLOkBGKtNUDrSNZjIRxaMGQgZISvHwT5JSLqQU RlMV0NAnQeTAYyYBN8PVOpMEAbEXZptd0JWHXvMIF2AFQoHSLiMBVzLDMxJKttLSGjGMPzNZW8LJUkCY NiZF4PIcUnNYChJAB0DNJjMLQgPOEyix9DGFTcQOA8SRohJnFtWQQrRDJfZPpxSFWlOZT6MDo1ZVFnBW XfUR7ADzKxZLIiRwhpRdDbXGZfAMWddq9HWXShLSA8 Scw7RaJzJGOiLTLjGBreAOYaWOB2UhDlPOGyOYPfEY3VWaWqNSdcALOBSyx8BKriQ7r9VAG3HV8QE4St t2AxUNQrVKRDOSfwXO6dvoCzOQHlSh0ZZ4nKAbuiIRNtEMUnCZb5RsKnOeD6Xiw6KPijJNL8DdBdMBRo UV3cIPB5SMG1VULyIGH6ZNXzSmHvRnokSqH7Lbu8Ad G7GcZjEgTtXE5BXq1ZAiV6BXH0qFCjOw1CXai4CYqSBhVgCE3JBLl= ID Date Data Source [id number] 09/13/2020 09:22:00 AM EDT [facility] ([facility] Name Value Range Interpretation Code Description Data Evita rce(s) Supporting Document(s) Glucose [Mass/volume] in Capillary blood by Glucometer 143 mg/dL 80- 115 [facility] ([facility] ID Date Data Source [id number] 09/13/2020 06:55:00 AM EDT [facility] ([facility] Name Value Range Interpretation Code Description Data Evita rce(s) Supporting Document(s) Glucose [Mass/volume] in Capillary blood by Glucometer 135 mg/dL 80- 115 [facility] ([facility] ID Date Data Source [id number] 09/13/2020 06:50:00 AM EDT [facility] ([facility] Name Value Range Interpretation Code Description Data Evita rce(s) Supporting Document(s) Glucose, Fasting 136 mg/dL 70-100 [facility] ([facility] Blood Urea Nitrogen 16 mg/dL 7-18 [facility] ([facility] Glomerular Filtration Rate 55.5 [facility] ([facility] <content>Units are mL/min/1.73 m2</content>
<content></content>
<content>Chronic Kidney Disease Staging per NKF:</content>
<content></content>
<content>Stage I & II GFR >=60 Normal to Mildly Decreased</content>
<content>Stage III GFR 30- 59 Moderately Decreased</content>
<content>Stage IV GFR 15-29 Severely Decreased</content>
<content>Stage V GFR <15 Very Little GFR Left</content>
<content>ESRD GFR <15 on DRAFTING LAYOUT MAN</content>
<content></content> Creatinine For GFR 1.05 mg/dL 0.55-1.30 [facility] ([facility] Sodium Level 140 meq/L 136-145 [facility] ([facility] Potassium Serum 3.8 meq/L 3.5-5.1 [facility] ([facility] Anion Gap 7 meq/L 8-16 [facility] ([facility] Carbon Dioxide Level 27 meq/L 21-32 [facility] ([facility] Chloride Level 106 meq/L 98-107 [facility] ([facility] Calcium Level 8.7 mg/dL 8.8-10.2 [facility] ([facility] ID Date Data Source [id number] 09/13/2020 06:50:00 AM EDT [facility] ([facility] Name Value Range Interpretation Code Description Data Evita rce(s) Supporting Document(s) Prothrombin Time 13.1 s 12.5-14.3 [facility] ([facility] Inr 0.97 [facility] ([facility] THERAPUTIC HUMAN INR VALUES INDICATIONS NORMAL RANGES PROPHYLAXIS/TREATMENT OF: VENOUS THROMBOSIS 2.0-3.0 PULMONARY EMBOLISM 2.0-3.0 PREVENTION OF SYSTEMIC EMBOLISM FROM: TISSUE HEART VALVES 2.0-3.0 ACUTE MYOCARDIAL INFARCTION 2.0-3.0 VALVULAR HEART DISEASE 2.0-3.0 ATRIAL FIBRILLATION 2.0-3.0 MECHANICAL VALVES(HIGH RISK) 2.5-3.5 RECURRENT MYOCARDIAL INFARCTION 2.5-3.5 ID Date Data Source [id number] 09/13/2020 06:50:00 AM EDT [facility] ([facility] Name Value Range Interpretation Code Description Data Evita rce(s) Supporting Document(s) Red Blood Count 3.82 10 4.00-5.40 [facility] ([facility] White Blood Count 7.6 10 4.0-10.0 [facility] ([facility] Hematocrit 36.1 % 36.0-47.0 [facility] ([facility] Mean Corpuscular Volume 94.5 fl 80.0-96.0 M [facility] ([facility] Hemoglobin 11.6 g/dL 12.0-15.5 [facility] ([facility] Mean Corpuscular Hemoglobin 30.4 pg 27.0-33.0 [facility] ([facility] Red Cell Distribution Width 14.7 % 11.5-14.5 [facility] ([facility] Mean Corpuscular HGB Conc 32.1 g/dL 32.0-36.5 [facility] ([facility] Platelet Count, Automated 151 10 150-450 [facility] ([facility] Nucleated Red Blood Cell % 0.0 % 0-0 [facility] ([facility] ID Date Data Source [id number] 09/13/2020 06:50:00 AM EDT [facility] ([facility], ) Name Value Range Interpretation Code Description Data Evita rce(s) Supporting Document(s) Blood Urea Nitrogen 16 mg/dL 7-18 Normal (applies to non-nume galina results) [facility] ([facility], ) Glucose, Fasting 136 mg/dL 70-100 Above high normal [facility] ([facility]) Creatinine For GFR 1.05 mg/dL 0.55-1.30 Normal (applies to non -numeric results) [facility] ([facility]) Sodium Level 140 meq/L 136-145 Normal (applies to non-numeric res ults) [facility] ([facility]) Glomerular Filtration Rate 55.5 Normal (applies to n on-numeric results) [facility]) <content>Units are mL/min/1.73 m2</content>
<content></content>
<content>Chronic Kidney Disease Staging per NKF:</content>
<content></content>
<content>Stage I & II GFR >=60 Normal to Mildly Decreased</content>
<content>Stage III GFR 30- 59 Moderately Decreased</content>
<content>Stage IV GFR 15-29 Severely Decreased</content>
<content>Stage V GFR <15 Very Little GFR Left</content>
<content>ESRD GFR <15 on DRAFTING LAYOUT MAN</content>
<content></content> Chloride Level 106 meq/L 98-107 Normal (applies to non-numeric r esults) [facility] ([facility]) Carbon Dioxide Level 27 meq/L 21-32 Normal (applies to non-num odette results) [facility] ([facility]) Potassium Serum 3.8 meq/L 3.5-5.1 Normal (applies to non-numeric results) [facility] ([facility]) Anion Gap 7 meq/L 8-16 Below low normal [facility] ( [facility]) Calcium Level 8.7 mg/dL 8.8-10.2 Below low normal [facility] ([facility]) ID Date Data Source [id number] 09/13/2020 06:50:00 AM EDT [facility] ([facility]) Name Value Range Interpretation Code Description Data Evita rce(s) Supporting Document(s) Prothrombin Time 13.1 s 12.5-14.3 Normal (applies to non-numeric results) [facility] ([facility]) Inr 0.97 Normal (applies to non-numeric resul ts) [facility] ([facility]) THERAPUTIC HUMAN INR VALUES INDICATIONS NORMAL RANGES PROPHYLAXIS/TREATMENT OF: VENOUS THROMBOSIS 2.0-3.0 PULMONARY EMBOLISM 2.0-3.0 PREVENTION OF SYSTEMIC EMBOLISM FROM: TISSUE HEART VALVES 2.0-3.0 ACUTE MYOCARDIAL INFARCTION 2.0-3.0 VALVULAR HEART DISEASE 2.0-3.0 ATRIAL FIBRILLATION 2.0-3.0 MECHANICAL VALVES(HIGH RISK) 2.5-3.5 RECURRENT MYOCARDIAL INFARCTION 2.5-3.5 ID Date Data Source [id number] 09/13/2020 06:50:00 AM EDT [facility] ([facility]) Name Value Range Interpretation Code Description Data Evita rce(s) Supporting Document(s) White Blood Count 7.6 10 4.0-10.0 Normal (applies to non-numeri c results) [facility] ([facility]) Red Blood Count 3.82 10 4.00-5.40 Below low normal [facility] ([facility]) Hematocrit 36.1 % 36.0-47.0 Normal (applies to non-numeric resul ts) [facility] ([facility]) Hemoglobin 11.6 g/dL 12.0-15.5 Below low normal [facility] ( [facility]) Mean Corpuscular HGB Conc 32.1 g/dL 32.0-36.5 Normal (applies to non-numeric results) [facility] ([facility]) Mean Corpuscular Volume 94.5 fl 80.0-96.0 Normal ( applies to non-numeric results) [facility] ([facility]) Mean Corpuscular Hemoglobin 30.4 pg 27.0-33.0 Norm al (applies to non-numeric results) [facility] ([facility]) Platelet Count, Automated 151 10 150-450 Normal (applies to non-numeric results) [facility] ([facility]) Red Cell Distribution Width 14.7 % 11.5-14.5 Above high normal [facility]) Nucleated Red Blood Cell % 0.0 % 0-0 Normal (applies to n on-numeric results) [facility]) ID Date Data Source [id number] 08/04/2020 10:07:00 AM EDT [facility] ([facility] Name Value Range Interpretation Code Description Data Evita rce(s) Supporting Document(s) Glucose [Mass/volume] in Serum or Plasma 139 mg/dL 65-99 [facility] ([facility] A courtesy copy of this report has been sent to the patient, , [facility] Creatinine [Mass/volume] in Serum or Plasma 0.94 mg/dL 0.57-1.00 [facility] ([facility] A courtesy copy of this report has been sent to the patient, , [facility] Urea nitrogen [Mass/volume] in Serum or Plasma 18 mg/dL 8-27 [facility] ([facility] A courtesy copy of this report has been sent to the patient, , [facility] eGFR If NonAfricn Am 63 mL/min/1.73 [facility] ([facility] A courtesy copy of this report has been sent to the patient, , [facility] eGFR If Africn Am 72 mL/min/1.73 [facility] ([facility] A courtesy copy of this report has been sent to the patient, , [facility] Urea nitrogen/Creatinine [Mass Ratio] in Serum or Plasma 19 1 2-28 [facility] ([facility] A courtesy copy of this report has been sent to the patient, , [facility] Potassium [Moles/volume] in Serum or Plasma 4.5 mmol/L 3.5-5.2 [facility] ([facility] A courtesy copy of this report has been sent to the patient, , [facility] Sodium [Moles/volume] in Serum or Plasma 140 mmol/L 134-144 [facility] ([facility] A courtesy copy of this report has been sent to the patient, , [facility] Chloride [Moles/volume] in Serum or Plasma 104 mmol/L 96-106 [facility] ([facility] A courtesy copy of this report has been sent to the patient, , [facility] Calcium [Mass/volume] in Serum or Plasma 9.6 mg/dL 8.7-10.3 [facility] ([facility] A courtesy copy of this report has been sent to the patient, , [facility] Carbon dioxide, total [Moles/volume] in Serum or Plasma 24 mmol/L 20 -29 [facility] ([facility] A courtesy copy of this report has been sent to the patient, , [facility] Globulin [Mass/volume] in Serum by calculation 2.6 g/dL 1.5-4.5 [facility] ([facility] A courtesy copy of this report has been sent to the patient, , [facility] Protein, Total 7.1 g/dL 6.0-8.5 [facility] ([facility] A courtesy copy of this report has been sent to the patient, , [facility] Albumin [Mass/volume] in Serum or Plasma 4.5 g/dL 3.8-4.8 [facility] ([facility] A courtesy copy of this report has been sent to the patient, , [facility] Bilirubin.total [Mass/volume] in Serum or Plasma 0.4 mg/dL 0.0-1.2 [facility] ([facility] A courtesy copy of this report has been sent to the patient, , [facility] Alkaline phosphatase [Enzymatic activity/volume] in Serum or Plasma 57 IU/L 39-117 [facility] ([facility] A courtesy copy of this report has been sent to the patient, [phone] [place] [address] Albumin/Globulin [Mass Ratio] in Serum or Plasma 1.7 1.2-2.2 [facility] ([facility] A courtesy copy of this report has been sent to the patient, [phone] [place] [address] Aspartate aminotransferase [Enzymatic activity/volume] in Serum or Plasma 29 IU/L 0-40 [facility] ([facility] A courtesy copy of this report has been sent to the patient, , [facility] Alanine aminotransferase [Enzymatic activity/volume] in Seru m or Plasma 23 IU/L 0-32 [facility] ([facility] A courtesy copy of this report has been sent to the patient, , [facility] ID Date Data Source [id number] 08/04/2020 10:07:00 AM EDT [facility] ([facility] Name Value Range Interpretation Code Description Data Evita rce(s) Supporting Document(s) Microalbumin [Mass/volume] in Urine 13.4 ug/mL [facility] ([facility] A courtesy copy of this report has been sent to the patient, [facility] ID Date Data Source [id number] 08/04/2020 10:07:00 AM EDT [facility] ([facility] Name Value Range Interpretation Code Description Data Evita rce(s) Supporting Document(s) Hemoglobin A1c/Hemoglobin.total in Blood 6.7 % 4.8-5.6 [facility] ([facility] A courtesy copy of this report has been sent to the patient, [facility] ID Date Data Source [id number] 08/05/2020 07:05:00 AM EDT [facility] Name Value Range Interpretation Code Description Data Evita rce(s) Supporting Document(s) Glucose 139 mg/dL 65-99 Above high normal [facility] BUN 18 mg/dL 8-27 [facility] Creatinine 0.94 mg/dL 0.57-1.00 [facility] eGFR If NonAfricn Am 63 mL/min/1.73 >59 [facility] eGFR If Africn Am 72 mL/min/1.73 >59 [facility] BUN/Creatinine Ratio 19 12-28 [facility] Sodium 140 mmol/L 134-144 [facility] Potassium 4.5 mmol/L 3.5-5.2 [facility] Chloride 104 mmol/L 96-106 [facility] Carbon Dioxide, Total 24 mmol/L 20-29 [facility] Calcium 9.6 mg/dL 8.7-10.3 [facility] Protein, Total 7.1 g/dL 6.0-8.5 [facility] Albumin 4.5 g/dL 3.8-4.8 [facility] Globulin, Total 2.6 g/dL 1.5-4.5 [facility] A/G Ratio 1.7 1.2-2.2 [facility] Bilirubin, Total 0.4 mg/dL 0.0-1.2 [facility] Alkaline Phosphatase 57 IU/L 39-117 [facility] AST (SGOT) 29 IU/L 0-40 [facility] ALT (SGPT) 23 IU/L 0-32 [facility] ID Date Data Source [id number] 08/05/2020 11:06:00 AM EDT [facility] Name Value Range Interpretation Code Description Data Evita rce(s) Supporting Document(s) Hemoglobin A1c 6.7 % 4.8-5.6 Above high normal [facility] Prediabetes: 5.7 - 6.4 Diabetes: >6.4 Glycemic control for adults with diabetes: <7.0 ID Date Data Source [id number] 08/05/2020 11:06:00 AM EDT [facility] Name Value Range Interpretation Code Description Data Evita rce(s) Supporting Document(s) Albumin, Urine 13.4 ug/mL Not Estab. [facility] ID Date Data Source [id number] 04/13/2020 10:12:00 AM EDT [facility] Name Value Range Interpretation Code Description Data Evita rce(s) Supporting Document(s) Albumin/Creatinine [Mass Ratio] in Urine 31 mg/gcreat 0-29 [facility] Normal: 0 - 29 Moderately increased: 30 - 300 Severely increased: >300 Please note reference interval change Microalbumin [Mass/volume] in Urine 20.9 ug/mL [facility] Creatinine [Mass/volume] in Urine 67.1 mg/dL [facility] ID Date Data Source [id number] 04/13/2020 10:12:00 AM EDT [facility] ([facility] Name Value Range Interpretation Code Description Data Evita rce(s) Supporting Document(s) Glucose [Mass/volume] in Serum or Plasma 155 mg/dL 65-99 [facility] eGFR If NonAfricn Am 61 mL/min/1.73 [facility] Creatinine [Mass/volume] in Serum or Plasma 0.96 mg/dL 0.57-1.00 [facility] Urea nitrogen [Mass/volume] in Serum or Plasma 17 mg/dL 8-27 [facility] Urea nitrogen/Creatinine [Mass Ratio] in Serum or Plasma 18 1 2-28 [facility] eGFR If Africn Am 70 mL/min/1.73 [facility] Sodium [Moles/volume] in Serum or Plasma 142 mmol/L 134-144 [facility] Potassium [Moles/volume] in Serum or Plasma 4.7 mmol/L 3.5-5.2 [facility] Chloride [Moles/volume] in Serum or Plasma 105 mmol/L 96-106 [facility] Carbon dioxide, total [Moles/volume] in Serum or Plasma 23 mmol/L 20 -29 [facility] Albumin [Mass/volume] in Serum or Plasma 4.4 g/dL 3.8-4.8 [facility] Calcium [Mass/volume] in Serum or Plasma 9.3 mg/dL 8.7-10.3 [facility] Protein, Total 6.9 g/dL 6.0-8.5 [facility] Bilirubin.total [Mass/volume] in Serum or Plasma 0.2 mg/dL 0.0-1.2 [facility] Albumin/Globulin [Mass Ratio] in Serum or Plasma 1.8 1.2-2.2 [facility] Globulin [Mass/volume] in Serum by calculation 2.5 g/dL 1.5-4.5 [facility] Aspartate aminotransferase [Enzymatic activity/volume] in Serum or Plasma 27 IU/L 0-40 [facility] ([facility] Alanine aminotransferase [Enzymatic activity/volume] in Seru m or Plasma 27 IU/L 0-32 [facility] ([facility] Alkaline phosphatase [Enzymatic activity/volume] in Serum or Plasma 57 IU/L 39-117 [facility] ([facility] ID Date Data Source [id number] 04/13/2020 10:12:00 AM EDT [facility] ([facility] Name Value Range Interpretation Code Description Data Evita rce(s) Supporting Document(s) Leukocytes [#/volume] in Blood by Automated count 6.5 x10E3/uL 3.4-10 .8 [facility] ([facility] Hemoglobin [Mass/volume] in Blood 12.0 g/dL 11.1-15.9 [facility] ([facility] Erythrocytes [#/volume] in Blood by Automated count 3.92 x10E6/uL 3.7 7-5.28 [facility] ([facility] Hematocrit [Volume Fraction] of Blood by Automated count 35.1 % 3 4.0-46.6 [facility] ([facility] Erythrocyte distribution width [Ratio] by Automated count 15.3 % 11.7-15.4 [facility] ([facility] Erythrocyte mean corpuscular hemoglobin concentration [Mass/volume] by Automated count 34.2 g/dL 31.5-35.7 [facility] ([facility] Erythrocyte mean corpuscular hemoglobin [Entitic mass] by Automated count 30.6 pg 26.6-33.0 [facility] ([facility] Erythrocyte mean corpuscular volume [Entitic volume] by Auto mated count 90 fL 79-97 [facility] ([facility] Lymphocytes/100 leukocytes in Blood by Automated count 32 % [facility] ([facility] Platelets [#/volume] in Blood by Automated count 154 x10E3/uL 150-450 [facility] ([facility] Neutrophils 58 % [facility] Eosinophils/100 leukocytes in Blood by Automated count 2 % [facility] ([facility] Basophils/100 leukocytes in Blood by Automated count 1 % [facility] Monocytes/100 leukocytes in Blood by Automated count 6 % [facility] ([facility] Neutrophils [#/volume] in Blood by Automated count 3.7 x10E3/uL 1.4-7 .0 [facility] ([facility] Immature cells [#/volume] in Blood Laboratory test result [facility] ([facility] Monocytes [#/volume] in Blood 0.4 x10E3/uL 0.1-0.9 [facility] ([facility] Lymphocytes [#/volume] in Blood 2.1 x10E3/uL 0.7-3.1 [facility] ([facility] Eosinophils [#/volume] in Blood by Automated count 0.2 x10E3/uL 0.0-0 .4 [facility] ([facility] Immature granulocytes/100 leukocytes in Blood by Automated count 1 % [facility] ([facility] Immature granulocytes [#/volume] in Blood by Automated count 0.1 x10E3/uL 0.0-0.1 [facility] ([facility] Basophils [#/volume] in Blood by Automated count 0.0 x10E3/uL 0.0-0.2 [facility] ([facility] Nucleated erythrocytes/100 leukocytes [Ratio] in Blood by Automated count Laboratory test result [facility] ([facility] Morphology [Interpretation] in Blood Narrative Laboratory test result [facility] ([facility] ID Date Data Source [id number] 04/13/2020 10:12:00 AM EDT [facility] ([facility] Name Value Range Interpretation Code Description Data Evita rce(s) Supporting Document(s) Triglyceride [Mass/volume] in Serum or Plasma 170 mg/dL 0-149 [facility] ([facility] Cholesterol [Mass/volume] in Serum or Plasma 110 mg/dL 100-199 [facility] ([facility] Cholesterol in HDL [Mass/volume] in Serum or Plasma 39 mg/dL [facility] ([facility] Comment: Laboratory test result [facility] ([facility] Cholesterol in LDL [Mass/volume] in Serum or Plasma by calcu lation 37 mg/dL 0-99 [facility] ([facility] Cholesterol in VLDL [Mass/volume] in Serum or Plasma by calc ulation 34 mg/dL 5-40 [facility] ([facility] ID Date Data Source [id number] 04/13/2020 10:12:00 AM EDT [facility] ([facility] Name Value Range Interpretation Code Description Data Evita rce(s) Supporting Document(s) Hemoglobin A1c/Hemoglobin.total in Blood 7.8 % 4.8-5.6 [facility] ([facility] <content>Prediabetes: 5.7 - 6.4</content >
<content>Diabetes: >6.4</content>
<content>Glycemic control for adults with diabetes: <7.0</content>
<content></content> ID Date Data Source [id number] 04/14/2020 03:05:00 AM EDT [facility] Name Value Range Interpretation Code Description Data Evita rce(s) Supporting Document(s) WBC 6.5 x10E3/uL 3.4-10.8 [facility] RBC 3.92 x10E6/uL 3.77-5.28 [facility] Hemoglobin 12.0 g/dL 11.1-15.9 [facility] Hematocrit 35.1 % 34.0-46.6 [facility] MCV 90 fL 79-97 [facility] MCH 30.6 pg 26.6-33.0 [facility] MCHC 34.2 g/dL 31.5-35.7 [facility] RDW 15.3 % 11.7-15.4 [facility] Platelets 154 x10E3/uL 150-450 [facility] Neutrophils 58 % Not Estab. [facility] Lymphs 32 % Not Estab. [facility] Monocytes 6 % Not Estab. [facility] Eos 2 % Not Estab. [facility] Basos 1 % Not Estab. [facility] Neutrophils (Absolute) 3.7 x10E3/uL 1.4-7.0 [facility] Lymphs (Absolute) 2.1 x10E3/uL 0.7-3.1 [facility] Monocytes(Absolute) 0.4 x10E3/uL 0.1-0.9 [facility] Eos (Absolute) 0.2 x10E3/uL 0.0-0.4 [facility] Baso (Absolute) 0.0 x10E3/uL 0.0-0.2 [facility] Immature Granulocytes 1 % Not Estab. [facility] Immature Grans (Abs) 0.1 x10E3/uL 0.0-0.1 [facility] ID Date Data Source [id number] 04/14/2020 04:05:00 AM EDT [facility] Name Value Range Interpretation Code Description Data Evita rce(s) Supporting Document(s) Glucose 155 mg/dL 65-99 Above high normal [facility] BUN 17 mg/dL 8-27 [facility] Creatinine 0.96 mg/dL 0.57-1.00 [facility] eGFR If NonAfricn Am 61 mL/min/1.73 >59 [facility] eGFR If Africn Am 70 mL/min/1.73 >59 [facility] BUN/Creatinine Ratio 18 12-28 [facility] Sodium 142 mmol/L 134-144 [facility] Potassium 4.7 mmol/L 3.5-5.2 [facility] Chloride 105 mmol/L 96-106 [facility] Carbon Dioxide, Total 23 mmol/L 20-29 [facility] Calcium 9.3 mg/dL 8.7-10.3 [facility] Protein, Total 6.9 g/dL 6.0-8.5 [facility] Albumin 4.4 g/dL 3.8-4.8 [facility] Globulin, Total 2.5 g/dL 1.5-4.5 [facility] A/G Ratio 1.8 1.2-2.2 [facility] Bilirubin, Total 0.2 mg/dL 0.0-1.2 [facility] Alkaline Phosphatase 57 IU/L 39-117 [facility] AST (SGOT) 27 IU/L 0-40 [facility] ALT (SGPT) 27 IU/L 0-32 [facility] ID Date Data Source [id number] 04/14/2020 05:05:00 AM EDT [facility] Name Value Range Interpretation Code Description Data Evita rce(s) Supporting Document(s) Hemoglobin A1c 7.8 % 4.8-5.6 Above high normal [facility] Prediabetes: 5.7 - 6.4 Diabetes: >6.4 Glycemic control for adults with diabetes: <7.0 ID Date Data Source [id number] 04/14/2020 04:06:00 PM EDT [facility] Name Value Range Interpretation Code Description Data Evita rce(s) Supporting Document(s) Creatinine, Urine 67.1 mg/dL Not Estab. [facility] Albumin, Urine 20.9 ug/mL Not Estab. [facility] Alb/Creat Ratio 31 mg/g creat 0-29 Above high normal [facility] No rmal: 0 - 29 Moderately increased: 30 - 300 Severely increased: >300 Please note reference interval change ID Date Data Source [id number] 04/14/2020 04:05:00 AM EDT [facility] Name Value Range Interpretation Code Description Data Evita rce(s) Supporting Document(s) Cholesterol, Total 110 mg/dL 100-199 [facility] Triglycerides 170 mg/dL 0-149 Above high normal [facility] HDL Cholesterol 39 mg/dL >39 Below low normal [facility] VLDL Cholesterol Mehran 34 mg/dL 5-40 [facility] LDL Cholesterol Calc 37 mg/dL 0-99 [facility] Procedure Social History Code Duration Value Status Description Data Source(s ) Alcohol intake 12/18/2020 12:00:00 AM EST No completed [facility] Smoking 12/18/2020 12:00:00 AM EST Former smoker completed Former smoker [facility] Smoking 12/13/2020 12:00:00 AM EST Patient is a former smoker completed Patient is a former smoker [facility] Smoking 07/30/2020 02:01:18 PM EDT Ex-smoker (finding) complet ed Ex-smoker (finding) [facility] (Manuelito Nolan MD [facility]) Vital Signs ID Date Data Source [id number] Name Value Range Interpretation Code Description Data Source(s) Diastolic blood pressure 80 mm[Hg] 80 mm[Hg] [facility] Systolic blood pressure 138 mm[Hg] 138 mm[Hg] [facility] Oxygen saturation in Arterial blood by Pulse oximetry 97 % 97 % [facility] Body mass index (BMI) [Ratio] 40.77 kg/m2 40.77 kg/m2 [facility] Body weight 111.[address] [facility] Body height 165.[address] [facility] Respiratory rate 18 /min 18 /min [facility] Heart rate 81 /min 81 /min [facility] Body mass index (BMI) [Ratio] 39.6 kg/m2 39.6 k g/m2 [facility] ([facility] [place] body weight 130 [lb_av] 130 [lb_av] [facility] ([facility] Oxygen saturation in Arterial blood by Pulse oximetry 98 % 98 % [facility] ([facility] Body weight 245.50 [lb_av] 245.50 [lb_av] [facility] ([facility] Body height 66 [in_i] 66 [in_i] [facility] ([facility] 5'6" Respiratory rate 15 /min 15 /min [facility] ( [facility] Body temperature 97.6 [degF] 97.6 [degF] [facility] ([facility] Heart rate 100 /min 100 /min [facility] ([facility] Diastolic blood pressure 85 mm[Hg] 85 mm[Hg] [facility] ([facility] Systolic blood pressure 139 mm[Hg] 139 mm[Hg] [facility] ([facility] Diastolic blood pressure 99 mm[Hg] 99 mm[Hg] [facility] ([facility] Systolic blood pressure 188 mm[Hg] 188 mm[Hg] [facility] ([facility] Body surface area Derived from formula 2.24 m2 2.24 m2 [facility] ([facility]) Body weight 112.720 kg 112.720 kg [facility] ([facility]) [place] body weight 140 [lb_av] 140 [lb_av] [facility] ([facility]) Body mass index (BMI) [Ratio] 37.8 kg/m2 37.8 k g/m2 [facility] ([facility]) Body weight 248.50 [lb_av] 248.50 [lb_av] [facility] Body height 68 [in_i] 68 [in_i] [facility] ([facility]) 5'8" Diastolic blood pressure 80 mm[Hg] 80 mm[Hg] [facility] ([facility]) Systolic blood pressure 128 mm[Hg] 128 mm[Hg] [facility] ([facility]) Body mass index (BMI) [Ratio] 40.5 kg/m2 40.5 k g/m2 [facility] ([facility] [place] body weight 130 [lb_av] 130 [lb_av] [facility] Oxygen saturation in Arterial blood by Pulse oximetry 98 % 98 % [facility] ([facility] Body weight 251.25 [lb_av] 251.25 [lb_av] [facility] ([facility] Body height 66 [in_i] 66 [in_i] [facility] 5'6" Respiratory rate 17 /min 17 /min [facility] ( [facility] Body temperature 97.2 [degF] 97.2 [degF] [facility] ([facility] Heart rate 84 /min 84 /min [facility] ([facility] Diastolic blood pressure 82 mm[Hg] 82 mm[Hg] [facility] ([facility] Systolic blood pressure 177 mm[Hg] 177 mm[Hg] [facility] ([facility] Diastolic blood pressure 93 mm[Hg] 93 mm[Hg] [facility] ([facility] Systolic blood pressure 186 mm[Hg] 186 mm[Hg] [facility] ([facility] Body surface area Derived from formula 2.22 m2 2.22 m2 [facility] ([facility]) Body weight 110.678 kg 110.678 kg [facility] ([facility]) [place] body weight 140 [lb_av] 140 [lb_av] [facility] Body mass index (BMI) [Ratio] 37.1 kg/m2 37.1 k g/m2 [facility] ([facility]) Body weight 244.00 [lb_av] 244.00 [lb_av] [facility] Body height 68 [in_i] 68 [in_i] [facility] ([facility]) 5'8" Diastolic blood pressure 83 mm[Hg] 83 mm[Hg] [facility] ([facility]) Systolic blood pressure 141 mm[Hg] 141 mm[Hg] [facility] Body weight 109.771 kg 109.771 kg [facility] ([facility]) [place] body weight 140 [lb_av] 140 [lb_av] [facility] ([facility]) Body mass index (BMI) [Ratio] 36.8 kg/m2 36.8 k g/m2 [facility] ([facility]) Body weight 242.00 [lb_av] 242.00 [lb_av] [facility] ([facility]) Body height 68 [in_i] 68 [in_i] [facility] 5'8" Diastolic blood pressure 83 mm[Hg] 83 mm[Hg] [facility] ([facility]) Systolic blood pressure 144 mm[Hg] 144 mm[Hg] [facility] ([facility]) Body mass index (BMI) [Ratio] 39.1 kg/m2 39.1 k g/m2 [facility] ([facility] [place] body weight 130 [lb_av] 130 [lb_av] [facility] ([facility] Oxygen saturation in Arterial blood by Pulse oximetry 96 % 96 % [facility] ([facility] Body weight 242.38 [lb_av] 242.38 [lb_av] [facility] ([facility] Body height 66 [in_i] 66 [in_i] [facility] ([facility] 5'6" Respiratory rate 17 /min 17 /min [facility] ( [facility] Body temperature 97.6 [degF] 97.6 [degF] [facility] ([facility] Heart rate 76 /min 76 /min [facility] ([facility] Diastolic blood pressure 78 mm[Hg] 78 mm[Hg] [facility] ([facility] Systolic blood pressure 155 mm[Hg] 155 mm[Hg] [facility] Diastolic blood pressure 90 mm[Hg] 90 mm[Hg] [facility] ([facility] Systolic blood pressure 145 mm[Hg] 145 mm[Hg] [facility] ([facility] Body mass index (BMI) [Ratio] 39.4 kg/m2 39.4 k g/m2 [facility] ([facility] [place] body weight 130 [lb_av] 130 [lb_av] [facility] ([facility] Oxygen saturation in Arterial blood by Pulse oximetry 95 % 95 % [facility] ([facility] Body weight 244.25 [lb_av] 244.25 [lb_av] [facility] ([facility] Body height 66 [in_i] 66 [in_i] [facility] ([facility] 5'6" Respiratory rate 17 /min 17 /min [facility] ( [facility] Body temperature 97.4 [degF] 97.4 [degF] [facility] ([facility] Heart rate 80 /min 80 /min [facility] ([facility] Diastolic blood pressure 78 mm[Hg] 78 mm[Hg] [facility] ([facility] ra Systolic blood pressure 133 mm[Hg] 133 mm[Hg] [facility] ([facility] ra Body weight 108.921 kg 108.921 kg [facility] ([facility], ) Body mass index (BMI) [Ratio] 36.5 kg/m2 36.5 k g/m2 [facility] ([facility], ) Body weight 240.12 [lb_av] 240.12 [lb_av] [facility] T ([facility], ) Body height 68 [in_i] 68 [in_i] [facility] ([facility], ) 5'8" Diastolic blood pressure 78 mm[Hg] 78 mm[Hg] [facility] ([facility], ) Systolic blood pressure 114 mm[Hg] 114 mm[Hg] M MOUNIKA ([facility], ) Patient Treatment Plan of Care Planned Activity Planned Date Details Description Data Source (s) atorvastatin 40 MG Oral Tablet 11/29/2020 12:00:00 AM [facility] clopidogrel 75 MG Oral Tablet 10/14/2020 12:00:00 AM [facility] 24 HR metoprolol succinate 25 MG Extended Release Oral Tablet 08/20/2020 12:00:00 AM [facility]
[2021-01-10] MEDS: VANCOMYCIN HCL 1,000 MG, VIAL MATE ADAPTER 1 EACH in D5W 250 ML IV SCH ×2 (09:24→17:45)
[2021-01-10 09:30] LABS: HEMATOCRIT 36.9 % (36.0-47.0); HEMOGLOBIN 12.1 g/dl (12.0-15.5); MEAN CORPUSCULAR HEMOGLOBIN 29.9 pg (27.0-33.0); MEAN CORPUSCULAR HGB CONC 32.8 g/dl (32.0-36.5); MEAN CORPUSCULAR VOLUME 91.1 fl (80.0-96.0); PLATELET COUNT, AUTOMATED 155 10^3/uL (150-450); RED BLOOD COUNT 4.05 10^6/uL (4.00-5.40)
[2021-01-10 09:41] LABS: BLOOD UREA NITROGEN 15 MG/DL (7-18); CARBON DIOXIDE LEVEL 27 MEQ/L (21-32); CHLORIDE LEVEL 107 MEQ/L (98-107); CREATININE FOR GFR 0.91 MG/DL (0.55-1.30); GLOMERULAR FILTRATION RATE > 60.0 (>45); GLUCOSE, FASTING 154 MG/DL (70-100); POTASSIUM SERUM 4.4 MEQ/L (3.5-5.1); SODIUM LEVEL 141 MEQ/L (136-145)
[2021-01-10] MEDS ORDERED: BUPIVACAINE/EPIN 0.25% 30 ML VIAL As Ordered ONE (10:03)
[2021-01-10] MEDS ORDERED: THROMBIN SOLN 20,000 UNITS KIT As Ordered ONE (10:03)
[2021-01-10] MEDS ORDERED: HEPARIN SOD (PORCINE) 5000UNITS/ML 1ML VIAL/SYRINGE As Ordered ONE ×2 (10:03→13:13)
[2021-01-10 10:31] LABS: INR 1.03; PROTHROMBIN TIME 13.7 SECONDS (12.5-14.3)
[2021-01-10 10:32] LABS: PARTIAL THROMBOPLASTIN TIME 29.5 SECONDS (24.2-38.5)
[2021-01-10] MEDS ORDERED: VANCOMYCIN 1000MG/20ML VIAL As Ordered ONE (10:52)
[2021-01-10] MEDS ORDERED: dexameTHASONE 4 MG/ML 1ML VIAL (J1100 PER 1MG) As Ordered ONE (11:08)
[2021-01-10] MEDS ORDERED: LIDOCAINE 2% 100MG/5ML SDV (FOR ANES.) As Ordered ONE (11:08)
[2021-01-10] MEDS ORDERED: fentaNYL 250 MCG/5 ML INJECTION (J3010) As Ordered ONE (11:08)
[2021-01-10] MEDS ORDERED: propofoL 200 MG/20 ML VIAL As Ordered ONE (11:08)
[2021-01-10] MEDS ORDERED: ONDANSETRON 4MG/2ML VIAL As Ordered ONE (11:08)
[2021-01-10] MEDS ORDERED: ROCURONIUM BROMIDE 50 MG/5 ML VIAL As Ordered ONE ×3 (11:08→14:04)
[2021-01-10] MEDS ORDERED: MIDAZOLAM INJ 2MG/2ML VIAL (J2250 PER 1MG) As Ordered ONE (11:08)
[2021-01-10] MEDS ORDERED: PHENYLephrine 500MCG 5ML (100MCG/ML) SYRINGE As Ordered ONE ×2 (11:09→14:36)
[2021-01-10] MEDS ORDERED: ePHEDrine SULFATE 25 MG/5 ML(5MG/ML) SYRINGE As Ordered ONE (11:27)
[2021-01-10] MEDS ORDERED: ACETAMINOPHEN 1000MG 100ML IV BTL (OFIRMEV) (J0131 PER 10MG) As Ordered ONE (11:42)
[2021-01-10] MEDS ORDERED: ESMOLOL INJ 100MG/10ML VIAL As Ordered ONE (12:05)
[2021-01-10] MEDS ORDERED: HYDROmorphone HCL 2 MG/ML 1ML VIAL (J1170) As Ordered ONE (12:44)
[2021-01-10] MEDS ORDERED: SUGAMMADEX SODIUM 500 MG/5 ML VIAL (BRIDION) As Ordered ONE (13:44)
[2021-01-10] MEDS ORDERED: ceFAZolin 2 GM/D5W 50 ML IV BAG (J0690 PER 500MG) As Ordered ONE (14:41)
--- NOTE | 2021-01-10 16:27 | ROOPDOC ---
[facility] Report Of Operation Report of Operation DATE OF PROCEDURE: 01/10/21 PREPROCEDURE DIAGNOSES: Atherosclerosis of the [place] arteries with lifestyle limiting claudication and increasing pain left lower extremity POSTPROCEDURE DIAGNOSES: Same PROCEDURE: 1. Re-do femoral artery exposure, 60 minutes 2. Left popliteal artery endarterectomy with Xenosure patch angioplasty 3. Left profunda to popliteal artery bypass with 6 mm ringed PTFE graft SURGEON: Kayla Urena MD ANESTHESIA: Gen. anesthesia and local INDICATION FOR PROCEDURE: This is a very pleasant 70-year-old patient with peripheral vascular disease and worsening left lower extremity claudication and pain. 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 We discussed the risks benefits and alternatives to endarterectomy and femoral to above-knee popliteal bypass with either in situ vein or PTFE. I'm hopeful the patient's greater saphenous vein would be suitable for bypass, but I explained to her that I am not sure the size will be adequate and depending on how deep the vein is in her thigh, we may need additional length to reach the femoral and popliteal vessels. If I do not feel the vena suitable, we will proceed with PTFE. She is agreeable to this. We had a lengthy discussion about the challenges we might face healing her thigh and groin incisions due to her morbid obesity and history of diabetes. She understands that careful wound care will be essential. She also has a history of swelling in her lower extremities, and I discussed with her that this will not improve with a bypass procedure. We will invariably disrupt some of her lymphatics with the incisions, and if we use her vein, that will also add to left lower extremity swelling. I've explained to her that she may need long-term compression, and that we will be encouraging daily elevation above the level heart to help with venous return. She is agreeable to this as well. Informed consent was obtained. REPORT OF OPERATION: The patient was brought to the operating room in stable condition. General anesthesia and antibiotics were administered without complication. Her left groin and left lower extremity were prepped and draped in a sterile fashion, and Ioban was placed over the skin. A timeout was performed. An oblique incision was made over the inguinal ligament and left groin and carried down through the subcutaneous tissue with Bovie cautery. The patient is a very obese, and this was a very deep dissection. She had a lot of scar tissue in the area from a previous femoral endarterectomy. We dissected down to the inguinal ligament, and found that the inguinal ligament was very low, and covered almost the entire common femoral artery. We therefore dissected out the superficial femoral artery and the profunda. Vesseloops were placed around several branches on the profunda distal from its origin, and around the SFA which is occluded. We then carefully undermined under the inguinal ligament to free up the common femoral artery. This was extremely challenging. The femoral vein was adherent to the artery posterior medially. We had to carefully mobilized vein as well. Although this was very time-consuming, eventually we were able to free up enough of the common femoral artery and profunda, and we dopplered excellent flow through the common femoral artery and profunda, and I felt it might be best to do the bypass from the profunda proximally. I did not feel we needed to redo the femoral endarterectomy. We then turned our attention to the above-knee popliteal artery. A longitudinal incision was made over the medial lower thigh and carried down through the substantial soft tissue to the muscle. The fascia was incised in the muscle was retracted posteriorly. There was copious adipose tissue behind the knee. All of this tissue was dense with a large amount of bridging vessels, and dissecting down to the popliteal artery and vein was challenging. Eventually, we were able to dissect to the artery, and carefully mobilize it away from the vein. There was dense calcified plaque in the artery, and a lot of scar tissue around the artery, likely from inflammation from the vascular disease, and this made the dissection particularly challenging. Eventually, we were able to free up 5 cm of popliteal artery and a vessel loop was placed proximally and distally and rounded genicular vessel that is likely a good source for collateral circulation. There was also a large lateral collateral that we salvaged is well. A vessel loop was placed around this also. We then dissected down to the greater saphenous vein proximally and distally. Unfortunately, the vein was very small distally and branched into 2 small segments just proximal to our incision. I did not think this would likely be suitable for bypass. Proximally also, the vein had a low distal junction with the common femoral vein, which would make mobilization over to the profunda difficult and likely to be under tension. Therefore, I felt a PTFE bypass would be better suited for this patient. 5000 units of heparin was given and allowed to circulate. We returned our attention to the femoral vessels. A clamp was placed on the femoral artery at the Vesseloops on the profunda were secured. A longitudinal arteriotomy was made on the profunda and was noted to be widely patent. A small amount of posterior wall plaque was removed, but overall the vessel was widely patent. A 6 mm ringed PTFE cortex bypass graft was tunneled from the popliteal incision to the femoral incision along the medial thigh and the subcutaneous tissue. This was beveled for a long anastomosis on the profunda. 5-0 hemostatic Prolene was used to anastomose the graft to the profunda and an end-to-side fashion. Before the final sutures are placed we flushed the inflow and outflow and placed a clamp on the grass and irrigated with heparinized saline. We then placed her finer sutures and restored flow. Good hemostasis was noted. Additional heparin was given and allowed to circulate. We secured the Vesseloops on the popliteal artery, and a longitudinal arteriotomy was made. Unfortunately, there was so much heavy plaque that we felt an endarterectomy would dramatically improve her outflow. We removed as much aurelio que is possible proximally and distally to good endpoints. We then irrigated with heparinized saline. A xenosure patch was anastomosed in a running fashion with 6-0 Prolene suture. Before the final sutures are placed, we flushed the inflow and outflow of the artery and irrigated with heparinized saline. Because this was such a long, challenging procedure, additional antibiotics were given at this time. We then resecured the Vesseloops and an arteriotomy was made in the patch and the distal end of the graft was beveled for a tension-free anastomosis. We then anastomose the graft to the patch on the popliteal artery and an end-to-side fashion with running 5-0 Prolene hemostatic suture. Before the final sutures are placed, we flushed the inflow and outflow of the artery as well as flushed through the graft and irrigated with heparinized saline. The final sutures are placed in flow was restored. Good hemostasis was noted. Bovie cautery was used for soft tissue hemostasis the groin and the above-knee incision. Doppler was used to confirm good flow through the profunda proximal and distal to the bypass origin, as well as good flow through the bypass and through the popliteal artery proximal and distal to the bypass. We then irrigated with copious amounts of saline. The deep tissues in the groin were approximated with running 2-0 Vicryl suture. The fascia was closed in 3 layers with running 2-0 Vicryl suture. The deep dermal layer was approximated with interrupted 3-0 Vicryl suture. Nylon mattress sutures were placed along the incision for added support for a tension-free skin closure. Downing were used at the skin. At the above-knee popliteal incision, we again irrigated with saline and covered the graft carefully was soft tissue with interrupted [id number] Vicryl sutures. We then closed the fascia in 2 layers with running Vicryl suture. We closed the deep dermal layer with interrupted 3-0 Vicryl suture. Nylon mattress sutures were placed at the skin to create a tension-free closure and skin cornell were placed between the mattress sutures. Both incisions were cleaned and dried. 4 x 4's and Tegaderms were used as the final dressing. An Yimi wrap was used to wrap the leg from the foot to the hip, taking care to make sure it was not too tight. The patient was allowed to awaken from anesthesia and taken to recovery in stable condition. She tolerated the surgery and anesthesia well. ESTIMATED BLOOD LOSS: Approximately 250 mL. SPECIMEN: Plaque from left popliteal artery sent for pathology COMPLICATIONS: None. PLAN: Patient will be admitted to the hospitalist service. She will be on bed rest overnight. Okay to resume her home diet and medications. We will discontinue her Conner catheter in the morning. We will restart her Plavix in the morning. She will be able to get up out of bed with physical therapy in the morning also. We will continue Yimi wrap and elevation of her leg to minimize swelling and risk of bleeding post procedure. We will hope that she is ready for discharge in 2-3 days depending on progress. We appreciate the opportunity to participate in the care of this patient. KAYLA URENA MD Jan 10, 2021 16:27
[2021-01-10] MEDS ORDERED: HYDROmorphone 2 MG TAB PO PRN (16:30)
[2021-01-10] MEDS ORDERED: PERCOCET 5MG/325MG TAB PO PRN ×2 (16:30)
[2021-01-10] MEDS ORDERED: ONDANSETRON 4MG/2ML VIAL IV PRN ×2 (16:30→17:00)
[2021-01-10] MEDS ORDERED: ACETAMINOPHEN TAB 650MG DOSE (2X325MG) PO PRN (17:00)
[2021-01-10] MEDS ORDERED: MOM 30ML SUSPENSION UDC PO PRN (17:00)
[2021-01-10] MEDS ORDERED: fentaNYL 100 MCG/2 ML INJECTION (J3010) IV PRN (17:00)
[2021-01-10] MEDS ORDERED: LR 1,000 ML IV SCH (17:00)
[2021-01-10] MEDS ORDERED: oxyCODONE 5MG TAB PO PRN (17:00)
[2021-01-10] MEDS ORDERED: MAALOX 30 ML SUSP *UDC PO PRN (17:00)
[2021-01-10] MEDS ORDERED: ALBUTEROL 90 MCG/ACT 8GM HFA INHALER INH PRN (17:00)
[2021-01-10] MEDS ORDERED: GLUCAGON INJ 1MG VIAL SC PRN (17:15)
[2021-01-10] MEDS ORDERED: DEXTROSE 50% 50 ML SYRINGE IV PRN (17:15)
[2021-01-10] MEDS ORDERED: GLUCOSE 4GM CHEW TABLET PO PRN (17:15)
--- NOTE | 2021-01-10 17:24 | HPEPDOC ---
[facility] Medical History & Physical Date of Admission Jan 10, 2021 Date of Service: Jan 10, 2021 History and Physical CHIEF COMPLAINT: Medical management status post surgery HISTORY OF PRESENT ILLNESS: This is a 70-year-old female history of PAD with claudication which failed conservative management, CAD, DM, s/p L popliteal endarterectomy and popliteal artery bypass surgery with Dr Urena today. Dr. Urena asked me to admit this patient to medical unit for postoperative observation and to help with medical management. Patient will require evaluation by physical therapy. I saw the patient in the PACU she was little sleepy but awake enough to answer all my questions appropriately says she is feeling little bit achy but not in any pain she denies any trouble breathing denies any chest pain. Says she's a little hungry. PAST MEDICAL/SURGICAL HISTORY: Peripheral vascular disease with claudication Btl-[id number] diabetes mellitus Hypertension Hyperlipidemia Coronary artery disease s/p stent 2015 Aortic stenosis Left femoral endarterectomy Cholecystectomy Right carpal tunnel release SOCIAL HISTORY: Denies alcohol use Denies tobacco use actively but did smoke in the past Denies illicit drug use FAMILY HISTORY: Both parents have a history of coronary artery disease. Mother has diabetes and hypertension also. ALLERGIES: Please see below. REVIEW OF SYSTEMS: 10 point review of systems complete all negative otherwise stated in HPI HOME MEDICATIONS: Please see below. PHYSICAL EXAMINATION: Constitutional: Awake and alert, in no apparent distress ENT: Sclera are clear. Respiratory: Lungs CTA bilaterally. No respiratory distress. Cardiovascular: RRR S1 and S2 are normal, no murmur Gastrointestinal: Abdomen is soft, non distended, non tender, BS present. Musculoskeletal: No lower extremity edema Neurologic: No focal neurological deficit. Mental Status: A&O x3, normal affect Skin: Warm, dry LABORATORY DATA: See below. IMAGING: See chart MICROBIOLOGY: Please see below. ASSESSMENT/PLAN This is a 70-year-old female history of PAD with claudication admitted for observation and medical management post L popliteal endarterectomy and femoral popliteal bypass. # PVD, s/p L popliteal endarterectomy and popliteal artery bypass: surgery with Dr Urena 01/10/21. Admit to med/surg post op. Pain control. PT/OT. Resume dual antiplatelet therapy with aspirin and Plavix starting tomorrow morning. Continue statin. CARMELO carter in the am. Elevate leg w KYLE wrap. # Hypertension: Continue home meds. Monitor and titrate. # CAD s/p stenting 2015: ASA, statin starting tomorrow morning # DM: ISS. Frequent Accu-Cheks. Hypoglycemic precautions. Diabetic diet. # Gout: allopurinol # Hyperlipidemia: Continue statin # DVT prophylaxis: SCD. A [facility] Hospitalist Vital Signs Vital Signs Date Time Temp Pulse Resp B/P (MAP) Pulse Ox O2 Delivery O2 Flow Rate FiO2 01/10/21 16:50 95 18 101/51 (68) 97 Nasal Cannula 2 01/10/21 16:30 98.0 Laboratory Data Labs 24H Laboratory Tests 2 01/10/21 08:59: Nucleated Red Blood Cells % (auto) 0.0, Prothrombin Time 13.7, Prothromb Time International Ratio 1.03, Activated Partial Thromboplast Time 29.5, Anion Gap 7L, Glomerular Filtration Rate > 60.0, Calcium Level 9.0 01/10/21 09:29: Bedside Glucose (Misc Panel) 148H CBC/BMP Laboratory Tests 01/10/21 08:59 Home Medications Scheduled Allopurinol (Allopurinol) 100 Mg Tablet, 100 MG PO DAILY Aspirin (Aspirin EC) 81 Mg Tablet.dr, 81 MG PO DAILY Atorvastatin Calcium (Atorvastatin Calcium) 40 Mg Tablet, 40 MG PO DAILY Clopidogrel Bisulfate (Plavix) 75 Mg Tablet, 75 MG PO DAILY Glimepiride (Glimepiride) 2 Mg Tablet, 1 MG PO DAILY Lisinopril (Lisinopril) 5 Mg Tablet, 5 MG PO DAILY Metoprolol Succinate (Metoprolol Succinate) 25 Mg Tab.er.24h, 12.5 MG PO DAILY Multivitamins (Thera M Plus Tablet) 1 Each Tablet, 1 TAB PO QAM Sitagliptin Phos/Metformin HCl (Janumet 50-500 mg Tablet) 1 Each Tablet, 50-500 MG PO BID Scheduled PRN Albuterol Sulfate (Ventolin Hfa) 18 Gm Hfa.aer.ad, Q4-6HP PRN for SOB/WHEEZING Allergies Coded Allergies: Penicillins (Verified Allergy, Intermediate, hives nausea, 12/27/20) A-FIB/CHADSVASC A-FIB History Current/History of A-Fib/PAF?: No TAMIKO REZA MD Jan 10, 2021 17:14
[2021-01-10 17:30] VITALS: BP 136/65
[2021-01-10] MEDS: HumaLOG INSULIN (NovoLOG) PER UNIT SC SCH ×2 (17:30→20:35)
[2021-01-10 18:00] VITALS: BP 127/71
[2021-01-10 18:30] VITALS: BP 119/62
[2021-01-10 19:30] VITALS: BP 129/64
[2021-01-10 20:30] VITALS: BP 133/72
[2021-01-10] MEDS: DOCUSATE SODIUM 100MG CAPSULE PO SCH (20:35)
[2021-01-10 21:30] VITALS: BP 131/76
[2021-01-11 06:00] VITALS: BP 130/67
[2021-01-11 06:37] LABS: HEMATOCRIT 30.2 % (36.0-47.0); HEMOGLOBIN 9.8 g/dl (12.0-15.5); MEAN CORPUSCULAR HEMOGLOBIN 29.8 pg (27.0-33.0); MEAN CORPUSCULAR HGB CONC 32.5 g/dl (32.0-36.5); MEAN CORPUSCULAR VOLUME 91.8 fl (80.0-96.0); PLATELET COUNT, AUTOMATED 191 10^3/uL (150-450); RED BLOOD COUNT 3.29 10^6/uL (4.00-5.40); WHITE BLOOD COUNT 11.6 10^3/uL (4.0-10.0)
[2021-01-11 07:01] LABS: BLOOD UREA NITROGEN 15 MG/DL (7-18); CALCIUM LEVEL 8.1 MG/DL (8.8-10.2); CARBON DIOXIDE LEVEL 27 MEQ/L (21-32); CHLORIDE LEVEL 106 MEQ/L (98-107); CREATININE FOR GFR 0.89 MG/DL (0.55-1.30); GLOMERULAR FILTRATION RATE > 60.0 (>45); GLUCOSE, FASTING 151 MG/DL (70-100); MAGNESIUM LEVEL 1.7 MG/DL (1.8-2.4); POTASSIUM SERUM 4.3 MEQ/L (3.5-5.1); SODIUM LEVEL 141 MEQ/L (136-145)
[2021-01-11] MEDS: METOPROLOL SUCC *XL* 12.5MG PER 1/2 TAB (TopROL *XL*) PO SCH (08:21)
[2021-01-11] MEDS: HumaLOG INSULIN (NovoLOG) PER UNIT SC SCH ×4 (08:21→21:00)
[2021-01-11] MEDS: allopurinoL 100 MG TAB PO SCH (08:22)
[2021-01-11] MEDS: CLOPIDOGREL 75 MG TAB PO SCH (08:22)
[2021-01-11] MEDS: LISINOPRIL *2.5 MG* TAB PO SCH (08:22)
[2021-01-11] MEDS: ASPIRIN 81 MG ENTERIC TAB PO SCH (08:22)
[2021-01-11] MEDS: DOCUSATE SODIUM 100MG CAPSULE PO SCH ×3 (08:22→19:53)
[2021-01-11] MEDS: ATORVASTATIN 20 MG TAB PO SCH (08:22)
--- NOTE | 2021-01-11 09:25 | IPN ---
PROGRESS NOTE DATE: 01/11/2021 SUBJECTIVE: Kajal is [facility] She had a left popliteal artery endarterectomy and left profunda to popliteal artery bypass yesterday by Dr. Urena. I reviewed her note. The plan is to restart Plavix today, get her out of bed with physical therapy, Yimi wrap and elevate the leg to minimize swelling, and hope to discharge in a few days. The patient does not have any significant pain in the limb. No numbness, tingling, shortness of breath, or chest pain. OBJECTIVE: VITAL SIGNS: Blood pressure 143/73, O2 saturation 96%, afebrile. GENERAL APPEARANCE: Alert and conversant in no distress. HEENT: Unremarkable. LUNGS: Clear. HEART: Regular rhythm with a 2/6 systolic ejection murmur. ABDOMEN: Soft and nontender with no masses. EXTREMITIES: No peripheral edema. Good distal pulse in the left foot that is warmer than right foot. LABORATORY DATA: White count 11.6, hemoglobin 9.8, platelets 191,000. Sodium 141, potassium 4.3, BUN 15, creatinine 0.8, glucose 151. Blood sugars have been below 200. IMPRESSION: 1. Status post left lower extremity revascularization. Treatment plan per Dr. Urena. Restart Plavix today. 2. Diabetes type 2. Continue sliding scale insulin. Restart typical medications on discharge. 3. Hypertension. Blood pressure is well-controlled. 4. Hyperlipidemia/coronary artery disease with coronary artery stent. Continue current regimen. 5. Aortic stenosis. I do not have access to her echocardiographic data to assess the severity of this. PLAN: Her primary care is through [facility]. I would encourage them considering putting the patient on a flozin medication for diabetes rather than the current regimen of glimepiride, metformin, and Januvia none of which have been shown to provide the vascular protection afforded by flozin medications such as Jardiance, etc. That decision will be deferred to her outpatient provider.
--- NOTE | 2021-01-11 09:43 | IPNPDOC ---
Date Seen The patient was seen on 01/11/21. Progress Note Patient seen and examined postoperative day 1 status post a left popliteal endarterectomy with patch angioplasty and left femoral to popliteal bypass with PTFE graft. She is doing well today. Her pain is controlled. Her Conner came out this morning. She is sitting up eating breakfast and being compliant with protein intake. She had no significant bleeding or drainage from her dressings overnight. We are pleased with her progress thus far. On exam, the left lower extremity Yimi wrap and dressings were removed. The groin incision and left medial thigh incision are clean dry and intact. Gordon and sutures are intact. Both incisions were thoroughly cleaned, and dry dressings were placed. A pi llowcase was placed in the groin folds to prevent moisture buildup. The patient tolerated the dressing changes well. She has some mild erythema on the medial thigh where the Yimi wrap had rolled down a bit, and I'm going to hold off on replacing the Yimi wrap for now to allow the skin to recover first. However, when she is in bed, we would like her legs elevated above the level of the heart as much as possible. It is okay for the patient to get up with physical therapy, sit in a chair, ambulate, whenever she is able to do today. No lifting greater than 5-10 pounds, no strenuous exercise until incisions are completely healed. We appreciate the hospitalist's excellent care of this patient. We will continue to follow closely. We appreciate the opportunity to participate in the care of this patient. VS, I&O, 24H, Fishbone Vital Signs/I&O Vital Signs Date Time Temp Pulse Resp B/P (MAP) Pulse Ox O2 Delivery O2 Flow Rate FiO2 01/11/21 08:22 144/73 01/11/21 08:21 84 01/11/21 06:00 97.0 18 96 Room Air 01/10/21 21:30 2.0 I&O- Last 24 Hours up to 6 AM 01/11/21 06:00 Intake Total 4385 ml Output Total 1150 ml Balance 3235 ml Laboratory Data 24H LABS Laboratory Tests 2 01/10/21 20:26: Bedside Glucose (Misc Panel) 178H 01/11/21 05:30: Nucleated Red Blood Cells % (auto) 0.0, Anion Gap 8, Glomerular Filtration Rate > 60.0, Calcium Level 8.1L, Magnesium Level 1.7L CBC/BMP Laboratory Tests 01/11/21 05:30 ARIEL CLOUD MD Jan 11, 2021 09:43
[2021-01-11 10:00] VITALS: BP 110/59
[2021-01-11 14:00] VITALS: BP 100/60
[2021-01-11 14:34] VITALS: BP 118/64
[2021-01-12 06:00] VITALS: BP 117/68
[2021-01-12 06:44] LABS: HEMATOCRIT 29.6 % (36.0-47.0); HEMOGLOBIN 9.4 g/dl (12.0-15.5); MEAN CORPUSCULAR HEMOGLOBIN 29.7 pg (27.0-33.0); MEAN CORPUSCULAR HGB CONC 31.8 g/dl (32.0-36.5); MEAN CORPUSCULAR VOLUME 93.4 fl (80.0-96.0); PLATELET COUNT, AUTOMATED 172 10^3/uL (150-450); RED BLOOD COUNT 3.17 10^6/uL (4.00-5.40); WHITE BLOOD COUNT 10.9 10^3/uL (4.0-10.0)
[2021-01-12 07:07] LABS: CALCIUM LEVEL 8.5 MG/DL (8.8-10.2); GLOMERULAR FILTRATION RATE 58.7 (>45); POTASSIUM SERUM 4.1 MEQ/L (3.5-5.1)
[2021-01-12] MEDS: HumaLOG INSULIN (NovoLOG) PER UNIT SC SCH ×4 (07:35→21:00)
[2021-01-12] MEDS: METOPROLOL SUCC *XL* 12.5MG PER 1/2 TAB (TopROL *XL*) PO SCH (07:38)
[2021-01-12] MEDS: ASPIRIN 81 MG ENTERIC TAB PO SCH (07:38)
[2021-01-12] MEDS: LISINOPRIL *2.5 MG* TAB PO SCH (07:38)
[2021-01-12] MEDS: CLOPIDOGREL 75 MG TAB PO SCH (07:38)
[2021-01-12] MEDS: DOCUSATE SODIUM 100MG CAPSULE PO SCH ×2 (07:39→21:21)
[2021-01-12] MEDS: allopurinoL 100 MG TAB PO SCH (07:39)
[2021-01-12] MEDS: ATORVASTATIN 20 MG TAB PO SCH (07:39)
--- NOTE | 2021-01-12 07:58 | IPNPDOC ---
Date Seen The patient was seen on 01/12/21. Progress Note Patient seen and examined postoperative day 2 status post left popliteal endarterectomy and left femoral to popliteal artery bypass with PTFE. Although this was an extremely challenging case because it was a redo surgery in the groin and the patient is morbidly obese, so far she is doing very well postop and seems to be healing well. We are pleased to see this. She was out of bed yesterday, she is able to get herself up to the bathroom safely and so she no longer has claudication in the calf with ambulation, she is tolerating a diet and eating is much protein as she can -which is great, and says she doesn't have any significant pain when laying in bed and only a moderate amount of pain when she is up ambulating, and so she does not need narcotic pain medication at this point. All of this is very good and we are very pleased with her progress. On exam, her left groin incision is clean dry and intact, cornell and sutures are intact, there is minimal inferior skin bruising which we expect with such an extensive dissection and restoring the patient on Plavix directly postop, but no hematoma/pulsatile mass or bulging noted. No significant tenderness over the incision. It was cleaned thoroughly and redressed. A pillowcase was placed in the groin fold to prevent moisture buildup. The left thigh incision is clean dry and intact, sutures and cornell are intact, and this was thoroughly cleaned and redressed. Good Doppler signal over the bypass and her foot is warm well perfused with good signals at the DP/PT. She does have a significant amount edema in both lower extremities, the left worse than right, not unexpected after surgery, and we rewrapped her with an Yimi wrap and elevated the end of her bed to help improve the venous and lymphatic return. I discussed with the patient that depending on her incisions tomorrow and her continued improvement with mobility, she will likely be able to discharge home tomorrow. We appreciate the hospitalist's excellent care of this patient. VS, I&O, 24H, Fishbone Vital Signs/I&O Vital Signs Date Time Temp Pulse Resp B/P (MAP) Pulse Ox O2 Delivery O2 Flow Rate FiO2 01/12/21 07:38 102 120/69 01/12/21 06:00 97.6 20 93 01/11/21 14:00 Room Air 01/10/21 21:30 2.0 I&O- Last 24 Hours up to 6 AM 01/12/21 06:00 Intake Total 1410 ml Output Total 275 ml Balance 1135 ml Laboratory Data 24H LABS Laboratory Tests 2 01/11/21 11:34: Bedside Glucose (Misc Panel) 168H 01/11/21 16:47: Bedside Glucose (Misc Panel) 184H 01/11/21 20:59: Bedside Glucose (Misc Panel) 199H 01/12/21 05:24: Nucleated Red Blood Cells % (auto) 0.0, Anion Gap 8, Glomerular Filtration Rate 58.7, Calcium Level 8.5L CBC/BMP Laboratory Tests 01/12/21 05:24 ARIEL CLOUD MD Jan 12, 2021 07:58
--- NOTE | 2021-01-12 09:23 | IPN ---
PROGRESS NOTE DATE: 01/12/2021 SUBJECTIVE: Kajal is seen in [address] [place] [address]. She has already been seen by Dr. Urena. She is pleased with her progress from a vascular surgery standpoint and plans to discharge tomorrow. The patient denies any chest pain, shortness of breath, or incisional pain. She is getting out of bed. She is having no claudication. OBJECTIVE: VITAL SIGNS: Stable. Afebrile. LUNGS: Clear. HEART: Rhythm regular. ABDOMEN: Soft and nontender. EXTREMITIES: Her lower extremity is dressed. Has good distal pulses. LABORATORY DATA: CBC with white count of 10.9, hemoglobin 9.4, platelets 172,000. Sodium 140, potassium 4.1, BUN 22, creatinine 1.0, glucose 186. IMPRESSION: Medically stable diabetes, hypertension, and hyperlipidemia. PLAN: Will plan to discharge her tomorrow if okay with vascular surgery. Medical problems are currently stable.
[2021-01-12 14:00] VITALS: BP 123/69
[2021-01-12 22:00] VITALS: BP 135/71
[2021-01-13 06:00] VITALS: BP 132/70
[2021-01-13 06:19] LABS: HEMATOCRIT 27.9 % (36.0-47.0); HEMOGLOBIN 8.8 g/dl (12.0-15.5); MEAN CORPUSCULAR HEMOGLOBIN 29.4 pg (27.0-33.0); MEAN CORPUSCULAR HGB CONC 31.5 g/dl (32.0-36.5); MEAN CORPUSCULAR VOLUME 93.3 fl (80.0-96.0); PLATELET COUNT, AUTOMATED 153 10^3/uL (150-450); RED BLOOD COUNT 2.99 10^6/uL (4.00-5.40)
[2021-01-13 06:48] LABS: BLOOD UREA NITROGEN 15 MG/DL (7-18); CALCIUM LEVEL 8.1 MG/DL (8.8-10.2); CARBON DIOXIDE LEVEL 27 MEQ/L (21-32); CHLORIDE LEVEL 105 MEQ/L (98-107); CREATININE FOR GFR 0.82 MG/DL (0.55-1.30); GLOMERULAR FILTRATION RATE > 60.0 (>45); GLUCOSE, FASTING 180 MG/DL (70-100); POTASSIUM SERUM 3.9 MEQ/L (3.5-5.1); SODIUM LEVEL 139 MEQ/L (136-145)
[2021-01-13] MEDS: HumaLOG INSULIN (NovoLOG) PER UNIT SC SCH (08:22)
[2021-01-13] MEDS: ATORVASTATIN 20 MG TAB PO SCH (08:22)
[2021-01-13] MEDS: allopurinoL 100 MG TAB PO SCH (08:23)
[2021-01-13] MEDS: METOPROLOL SUCC *XL* 12.5MG PER 1/2 TAB (TopROL *XL*) PO SCH (08:23)
[2021-01-13 08:24] VITALS: BP 134/70
[2021-01-13] MEDS: ASPIRIN 81 MG ENTERIC TAB PO SCH (08:24)
[2021-01-13] MEDS: DOCUSATE SODIUM 100MG CAPSULE PO SCH (08:24)
[2021-01-13] MEDS: CLOPIDOGREL 75 MG TAB PO SCH (08:24)
[2021-01-13] MEDS: LISINOPRIL *2.5 MG* TAB PO SCH (08:24)
--- NOTE | 2021-01-13 08:59 | IPNPDOC ---
Date Seen The patient was seen on 01/13/21. Progress Note Patient seen and examined postoperative day 3 status post left popliteal endarterectomy and left femoral to popliteal artery bypass with PTFE. Although this was an extremely challenging case because it was a redo surgery in the groin and the patient is morbidly obese, so far she is doing very well postop and seems to be quite healing well. We are pleased to see this. She was out of bed again yesterday, and she is able to get herself up to the bathroom safely. She no longer has claudication in the calf with ambulation, she is tolerating a diet and eating is much protein as she can -which is very helpful for healing, and says she doesn't have any significant pain when laying in bed and only a moderate amount of pain when she is up ambulating, and so she does not need narcotic pain medication at this point. All of this is axonal and we are very pleased with her progress. On exam, her left groin incision is clean dry and intact, cornell and sutures are intact, there is minimal inferior skin bruising at the inferior groin which we expect with such an extensive dissection and restoring the patient on Plavix directly postop, but no hematoma/pulsatile mass or bulging noted. No significant tenderness over the incision. It was cleaned thoroughly and redressed. A pillowcase was placed in the groin fold to prevent moisture buildup. The left thigh incision is clean dry and intact, sutures and cornell are intact, and this was thoroughly cleaned and redressed. Good Doppler signal over the bypass and her foot is warm well perfused with good signals at the DP/PT. She does have a significant amount edema in both lower extremities, the left worse than right, not unexpected after surgery. We elevated the end of her bed to help improve the venous and lymphatic return. It is okay for the patient to discharge home today from a vascular surgery standpoint. The following are our recommendations at discharge: Follow up in vascular surgery clinic in 1 week to check incisions and perfusion left lower extremity. Okay to ambulate and go up and down stairs. Patient may need a walker for safety. No strenuous exercise or lifting greater than 5 pounds for 2 weeks. Elevate left lower extremity when at rest above the level of the heart to improve venous and lymphatic return in diminished swelling. Diabetic diet with high protein, and tight glucose control to help with healing. Shower daily with dressings off. Soap and water. Clean towel to dry thoroughly. Swipes cornell with alcohol prep pad. Cover with single 4x4 dry gauze and secure with paper tape. Make sure hands are clean and dry prior to removing and applying dressings. Wear loose cotton clothing. Keep a soft pillowcase or Tylenol in the groin fold to prevent moisture buildup when at rest. We appreciate the opportunity to participate in the care of this patient. VS, I&O, 24H, Fishbone Vital Signs/I&O Vital Signs Date Time Temp Pulse Resp B/P (MAP) Pulse Ox O2 Delivery O2 Flow Rate FiO2 01/13/21 08:24 134/70 01/13/21 08:23 95 01/13/21 06:00 98.6 17 94 Room Air 01/10/21 21:30 2.0 I&O- Last 24 Hours up to 6 AM 01/13/21 06:00 Intake Total 1920 ml Output Total 0 ml Balance 1920 ml Laboratory Data 24H LABS Laboratory Tests 2 01/12/21 11:39: Bedside Glucose (Misc Panel) 162H 01/12/21 17:02: Bedside Glucose (Misc Panel) 179H 01/12/21 20:32: Bedside Glucose (Misc Panel) 215H 01/13/21 05:57: Nucleated Red Blood Cells % (auto) 0.0, Anion Gap 7L, Glomerular Filtration Rate > 60.0, Calcium Level 8.1L CBC/BMP Laboratory Tests 01/13/21 05:57 ARIEL CLOUD MD Jan 13, 2021 08:59
--- NOTE | 2021-01-13 09:18 | DSES ---
DISCHARGE SUMMARY DATE OF ADMISSION: 01/10/2021 DATE OF DISCHARGE: 01/13/2021 PRINCIPAL DIAGNOSIS: Ischemia left lower extremity, status post re-vascular procedure by Dr. Urena. PRINCIPAL PROCEDURE: Left popliteal artery endarterectomy, left profunda to popliteal artery bypass. SECONDARY DIAGNOSIS: 1. Type 2 diabetes. 2. Hypertensive heart disease 3. Hyperlipidemia 4. Aortic stenosis. HISTORY: The patient was admitted to hospitalist's service after re-vascular procedure. HOSPITAL COURSE: She did well postoperatively. She is seen daily by Dr. Urena, waiting for her rounds today whether she feels the patient is ready for discharge and will proceed with this. Today's blood pressure is 132/70, pulse 78, respiratory rate 17, 94% O2 saturation. Lungs clear. Abdomen soft, non-distended. Left lower extremity is dressed. Toes are warm, moves normally. Good strength. LABORATORY DATA: White count 10, hemoglobin 8.8, platelets 153. Sodium 139, potassium 3.9, BUN 15, creatinine is 0.8, glucose 180, both sugars have been less than 200. DISPOSITION: We anticipate discharge home today. Follow up with her primary care provider in a week. Follow up with Dr. Urena in her office. Her activities are as per Dr. Urena. Consistent carbohydrate diet. Wound care per Dr. Urena. She is to follow up with her primary care provider in a week, Dr. Urena in her office. DISCHARGE MEDICATIONS: Albuterol 2 puffs q.i.d. as needed, allopurinol 100 mg daily, aspirin 81 mg daily, Plavix 75 mg daily, atorvastatin 40 mg daily, glimepiride 2 mg daily, lisinopril 5 mg daily, metoprolol succinate 25 mg tablet (12.5 mg) daily, multivitamins and she takes Janumet, which is Januvia and metformin 50-500 mg one twice a day. I would encourage her primary care provider to consider optimizing Kajal's diabetic regimen in the face of established vascular disease. None of her current diabetic medications have proved to provide significant vascular protection. Consideration could be given to flozin medication, such as Jardiance or GLP-1 receptor agonist such as Trulicity, both classes providing better vascular protection than the patient's current regimen. Defer that decision to her outpatient provider.
== END 2021-01-13 11:51 | disposition home or self-care (01) | DRG 254 ==
LOC: M OR 01-10 08:40 → M MSPAV 01-10 17:37
PROVIDERS: ADMIT Surgery Vascular Surgery; ATTEND Family Medicine
PROC: 041L0JL Bypass Left Femoral Artery to Popliteal Artery with Synthetic Substitute, Open Approach (ICD-10-PCS; 2021-01-10)
PROC: 04UN0JZ Supplement Left Popliteal Artery with Synthetic Substitute, Open Approach (ICD-10-PCS; 2021-01-10)
PROC: 04CN0ZZ Extirpation of Matter from Left Popliteal Artery, Open Approach (ICD-10-PCS; principal; 2021-01-10 10:00)
DX: I70.212 Atherosclerosis of native arteries of extremities with intermittent claudication, left leg (principal); E11.51 Type 2 diabetes mellitus with diabetic peripheral angiopathy without gangrene; I13.10 Hypertensive heart and chronic kidney disease without heart failure, with stage 1 through stage 4 chronic kidney disease, or unspecified chronic kidney disease; E78.5 Hyperlipidemia, unspecified; I35.0 Nonrheumatic aortic (valve) stenosis; I25.10 Atherosclerotic heart disease of native coronary artery without angina pectoris; E66.01 Morbid (severe) obesity due to excess calories; Z95.5 Presence of coronary angioplasty implant and graft; Z87.891 Personal history of nicotine dependence; Z79.82 Long term (current) use of aspirin; Z79.02 Long term (current) use of antithrombotics/antiplatelets; Z79.84 Long term (current) use of oral hypoglycemic drugs; Z79.899 Other long term (current) drug therapy; Z88.0 Allergy status to penicillin; Z68.39 Body mass index [BMI] 39.0-39.9, adult

== ENCOUNTER → 2021-01-05 | Outpatient (CLI) | payer MEDICARE ==
[~2021-01-05] MED LIST changes: +VITMTA PO
== END ==
LOC: M LABSMTC 09:41
PROVIDERS: ATTEND Anesthesiology
DX: Z20.828 Contact with and (suspected) exposure to other viral communicable diseases (principal)

== ENCOUNTER → 2021-02-21 | Outpatient (CLI) | payer MEDICARE ==
--- NOTE | 2021-02-21 14:05 | REP ---
INDICATION: CLAUDICATION COMPARISON: Comparison sonography August 03, 2020.. TECHNIQUE: Real-time ultrasound evaluation and duplex Doppler interrogation of the extracranial carotid vasculature is performed. FINDINGS: Antegrade flow is observed in both vertebral arteries. Right carotid: The right common carotid artery shows diffuse intimal thickening but is otherwise unremarkable. There moderate mixed plaquing in the right carotid bulb and proximal ICA on two-dimensional scanning. Color flow and spectral Doppler interrogation are unremarkable on the right. Velocity chart right carotid: Right CCA PSV: 141 cm/S Right ICA PSV: 105 cm/S Right ICA EDV: 15.3 cm/S Right ECA PSV: 79 cm/S Right ICA/CCA ratio: 0.74 Left carotid: The left common carotid artery shows diffuse intimal thickening but is otherwise unremarkable. There is mild to moderate mixed plaquing in the left carotid bulb and proximal ICA on two-dimensional scanning. Color flow and spectral Doppler interrogation are unremarkable on the left. Velocity chart left carotid: Left CCA PSV: 94 cm/S Left ICA PSV: 71 cm/S Left ICA EDV: 23 cm/S Left ECA PSV: 72 cm/S Left ICA/CCA ratio: 0.75 IMPRESSION: Less than 50% category narrowing in the right internal carotid artery by Doppler velocity criteria. Less than 50% category narrowing in the left ICA by Doppler velocity criteria. ICA Doppler velocities are not significantly increased from the prior study. A left thyroid nodule is noted incidentally. <Electronically signed by David Marcelino > 02/21/21 0122
--- NOTE | 2021-02-21 14:14 | REP ---
INDICATION: CLAUDICATION. Patient is status post bypass graft left profundal a popliteal artery January 10, 2021. COMPARISON: Comparison study August 03, 2020.. TECHNIQUE: Bilateral lower extremity arterial Doppler ultrasound. FINDINGS: Ankle brachial indices are measured at 0.7 on the right and 0.75 on the left. These values are essentially unchanged. In the right lower extremity significant plaquing is seen from the common femoral artery to the distal superficial femoral artery. A 2-1 velocity ratio stenosis is is seen in the distal superficial femoral artery. Waveforms are improved from July 2020 exam. Biphasic arterial Doppler waveforms. The left leg post endarterectomy changes are seen in the common femoral artery with improved flow. A patent bypass graft is seen from the profundal to the above the knee popliteal. The [place] superficial femoral artery is occluded from mid to distal. Question stenosis at the distal anastomosis of the bypass graft, 3.9-1 velocity ratio. This area is difficult to image secondary to postoperative scarring and inflammation. Distal blood flow appears improved. Triphasic and biphasic arterial Doppler waveforms. Right lower extremity arterial Doppler velocity chart: Right NUT BLANKER OPERATOR PSV 124 cm/S Profundal 216 Proximal SFA 229 Mid SFA 110-66 Distal SFA 40 Popliteal 62 Proximal DAVE 36 Tibial-peroneal trunk 45 Proximal ROTOFORMER BACKTENDER 30 Distal ROTOFORMER BACKTENDER 28 Distal DAVE 38 Left lower extremity arterial Doppler velocity chart: Left NUT BLANKER OPERATOR PSV 121 cm/S Profundal 144-53 Proximal SFA 55 Mid SFA occluded Distal SFA occluded And [place] popliteal 158 Proximal DAVE 71 Tibial-peroneal trunk 46 Proximal ROTOFORMER BACKTENDER 19 Distal ROTOFORMER BACKTENDER 65 Distal DAVE 84 Left lower extremity bypass graft Doppler velocity chart: Proximal anastomosis, 91 cm/S Mid graft 71 Distal graft 73 Pre and asked Mod[place] distal graft 79 Anastomotic or just distal to the anastomosis, 305 cm/S IMPRESSION: Atherosclerotic changes. Elem SFA occlusion on the left with patent bypass graft. Question distal arterial anastomotic stenosis. Improved left lower extremity flow. <Electronically signed by David Marcelino > 02/21/21 [id number]
== END ==
LOC: M RAD 10:36
PROVIDERS: ATTEND Physician Assistant
DX: I70.212 Atherosclerosis of native arteries of extremities with intermittent claudication, left leg (principal); I65.23 Occlusion and stenosis of bilateral carotid arteries; Z95.828 Presence of other vascular implants and grafts

== ENCOUNTER → 2021-06-10 | Outpatient (CLI) | payer MEDICARE ==
--- NOTE | 2021-06-10 13:41 | DEXAMM ---
INDICATION: SCR FOR OSTEOPOROSIS/Z13.820. COMPARISON: Comparison study February 11, 2016 and November 21, 2004.. TECHNIQUE: Bone density was measured using dual-energy x-ray absorptionmetry (DEXA). FINDINGS: AP SPINE L1-L4 BMD 1.868 g/cm2 Young Adult T-Score 5.4 Age Matched Z-Score 7.1. LT FEMUR, TOTAL BMD 1.172 g/cm2 Young Adult T-Score 1.3 Age Matched Z-Score 2.7. LT NECK BMD 1.189 g/cm2 Young Adult T-Score 1.1 Age Matched Z-Score 2.7. RT FEMUR, TOTAL BMD 1.214 g/cm2 Young Adult T-Score 1.6 Age Matched Z-Score 3.0. RT NECK BMD 1.330 g/cm2 Young Adult T-Score 2.1 Age Matched Z-Score 3.7. IMPRESSION: There is normal bone density of the spine. There is normal bone density of the left hip. There is normal bone density of the right hip. The density of the spine has increased 17.4% since the initial exam on November 21, 2004. The density of the spine increased 2.8% since most recent exam on February 11, 2016. The density of the left hip has decreased 17.9% since initial exam on November 21, 2004. The density of the left hip has decreased 11.1% since most recent exam on February 11, 2016. The density of the right hip has decreased 10.8% since the initial exam on November 21, 2004. The density of the right hip has decreased 3.7% since the most recent exam on February 11, 2016.. FOLLOW-UP: Recommendation for the next bone density exam: 10 years. <Electronically signed by David Marcelino > 06/10/21 [id number]
--- NOTE | 2021-06-10 13:54 | REPMRS ---
Patient History The patient states she has not had a clinical breast exam in over a year. Patient is postmenopausal and had first child at age 35. Family history of pancreatic cancer at age 59 in maternal grandfather. Took unspecified hormones for 1 month. Covid vaccines 03/2021 left arm, 03/2021 right arm. Patient states no breast complaints today. Patient has signed MRS History Sheet. Digital Woman Screen Mammo: June 10, 2021 - Exam #: [id number] Bilateral CC and MLO view(s) were taken. Technologist: RT Kristine Prior study comparison: May 07, 2019, bilateral digital mammo screening bilat, performed at [facility]. December 13, 2017, bilateral digital mammo screening bilat, performed at [facility]. FINDINGS: The breast tissue is almost entirely fat. Screening. Digital screening (2D) mammography was performed bilaterally in the CC and MLO projections. Additionally, breast tomosynthesis (3D mammography) was performed bilaterally in the CC and MLO projections. Todays exam was compared to the prior exam/exams. By history, the patient has no complaints of a palpable breast abnormality or other significant breast complaints. The breasts are unchanged in size and shape. There are no troy-soft tissue densities or spiculated masses. There is no internal architectural distortion. There are no suspicious troy-calcific clusters. Skin thickening or nipple retraction is not present. IMPRESSION: BI-RADS Category 1-negative. There is no evidence of malignant alteration of the breasts. Followup examination recommended in one year. The Volpara volumetric breast density category is A, the breasts are almost entirely fatty. This mammogram was read with the assistance of [facility],an FDA approved computer aided detection system for mammography. The lifetime Tyrer-Cuzick score is 6.1 % Negative x-ray reports should not delay surgical consultation if a dominant or clinically suspicious mass is present. Not all breast cancers can be identified by mammography. Therefore, we recommend that you continue to perform regular breast self-examination and physical examination and then promptly contact your physician of any concerns or changes. Adenosis and dense breasts may obscure an underlying neoplasm. Assessment: BI-RADS/ACR category 1 mammogram. Negative Mammogram. Recommendation Routine screening mammogram of both breasts in 1 year. Electronically Signed By: Abraham Hernandez DO 06/10/21 [id number]
== END ==
LOC: M WHC 10:44
PROVIDERS: ATTEND Nurse Practitioner Family
DX: Z12.31 Encounter for screening mammogram for malignant neoplasm of breast (principal); Z13.820 Encounter for screening for osteoporosis; M81.0 Age-related osteoporosis without current pathological fracture

== ENCOUNTER → 2021-08-09 | Outpatient (CLI) | payer MEDICARE ==
--- NOTE | 2021-08-09 14:37 | REP ---
INDICATION: CLAUDICATION TECHNIQUE: Real-time sonographic evaluation of the lower extremity arteries with Doppler FINDINGS: All numeric values represent peak systolic velocities in cm/SEC. On the right: Ankle brachial index is reported at 0.76 CELLULAR PLASTICS CUTTER: 129-231 biphasic Profunda: 210 monophasic SFA proximal: 165-70 monophasic SFA mid: 50-92 monophasic SFA distal: 34 monophasic Popliteal: 24-104 monophasic DAVE proximal: 61 monophasic Tibioperoneal trunk: 41 monophasic PAPER REELER proximal: 68 monophasic PAPER REELER distal: 44 monophasic DAVE distal: 68 monophasic On the left: The ankle brachial index is reported at 0.65 CELLULAR PLASTICS CUTTER: 94 biphasic Profunda: 63 biphasic SFA proximal: 91 biphasic SFA mid: 67 monophasic SFA distal: Occluded Popliteal: Revascularized: 15 monophasic DAVE proximal: 32 monophasic Tibioperoneal trunk: Not seen PAPER REELER proximal: 21 monophasic PAPER REELER distal: 26 monophasic DAVE distal: 41 monophasic On the right a significant amount of plaque was again seen from the common femoral artery to the popliteal artery with a 2:1 stenosis in the CELLULAR PLASTICS CUTTER proximal to the bifurcation. 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 Minimal flow seen distal to the SFA where revascularization is seen in the popliteal artery behind the knee. The slow flow identified is worse than which was identified on the 02/13 exam IMPRESSION: As above <Electronically signed by Abraham Hernandez > 08/09/21 [id number]
== END ==
LOC: M RAD 12:38
PROVIDERS: ATTEND Surgery Vascular Surgery
DX: I70.213 Atherosclerosis of native arteries of extremities with intermittent claudication, bilateral legs (principal)

== ENCOUNTER → 2021-11-04 | Outpatient (CLI) | payer MEDICARE ==
[~2021-11-04] MED LIST changes: +ISOVUE-370 76% 100ML VIAL As Ordered ONE; -LISI-898 PO; +LISI5TAB11 PO
== END ==
LOC: M RAD 12:24
PROVIDERS: ATTEND Surgery Vascular Surgery
DX: I70.213 Atherosclerosis of native arteries of extremities with intermittent claudication, bilateral legs (principal); N28.1 Cyst of kidney, acquired
CPT/HCPCS: 75635; Q9967

== ENCOUNTER → 2021-11-17 | Outpatient (CLI) | payer MEDICARE ==
[~2021-11-17] MED LIST changes: -ISOVUE-370 76% 100ML VIAL As Ordered ONE; +LISI-898 PO; -LISI5TAB11 PO
== END ==
LOC: M LABSMTC 10:47
PROVIDERS: ATTEND Internal Medicine Cardiovascular Disease
DX: Z01.812 Encounter for preprocedural laboratory examination (principal); I25.10 Atherosclerotic heart disease of native coronary artery without angina pectoris; Z20.822 Contact with and (suspected) exposure to COVID-19

== ENCOUNTER → 2022-01-30 | Outpatient (CLI) | payer MEDICARE ==
[~2022-01-30] MED LIST changes: -LISI-898 PO; +LISI5TAB11 PO
== END ==
LOC: M RAD 11:25
PROVIDERS: ATTEND Nurse Practitioner Family
DX: I82.4Y1 Acute embolism and thrombosis of unspecified deep veins of right proximal lower extremity (principal)

== ENCOUNTER → 2022-08-22 | Outpatient (REF) | payer MEDICARE ==
[2022-08-22 17:43] LABS: TOTAL PROTEIN 7.1 GM/DL (6.4-8.2)
== END ==
LOC: M LAB REF 16:54
PROVIDERS: ATTEND Internal Medicine Nephrology
DX: N18.31 Chronic kidney disease, stage 3a (principal)

== ENCOUNTER 2023-01-06 13:34 | Emergency (ER) | payer MEDICARE ==
[~2023-01-06] VITALS: Ht 167.6 cm; Wt 109.1 kg
[~2023-01-06 13:34] MED LIST changes: +CLOP75TA99 PO; -PLAV1TAB2 PO
[2023-01-06] MEDS ORDERED: LOPR1TAB6 PO (13:55)
[2023-01-06] MEDS ORDERED: VITA500C24 PO (13:55)
[2023-01-06] MEDS ORDERED: XARE10TA PO (13:55)
[2023-01-06] MEDS ORDERED: FERR324T21 PO (13:55)
[2023-01-06 15:03] LABS: INR 0.99; PARTIAL THROMBOPLASTIN TIME 23.8 SECONDS (24.8-34.2); PROTHROMBIN TIME 13.3 SECONDS (12.5-14.5)
[2023-01-06 17:11] VITALS: BP 159/70
== END 2023-01-06 17:11 | disposition home or self-care (01) ==
LOC: M ED 13:34
DX: S09.90XA Unspecified injury of head, initial encounter (principal); S30.0XXA Contusion of lower back and pelvis, initial encounter; W01.0XXA Fall on same level from slipping, tripping and stumbling without subsequent striking against object, initial encounter; I25.10 Atherosclerotic heart disease of native coronary artery without angina pectoris; I10 Essential (primary) hypertension; E78.5 Hyperlipidemia, unspecified; E11.51 Type 2 diabetes mellitus with diabetic peripheral angiopathy without gangrene; I35.0 Nonrheumatic aortic (valve) stenosis; Z88.0 Allergy status to penicillin; Z87.891 Personal history of nicotine dependence; M50.221 Other cervical disc displacement at C4-C5 level; M50.222 Other cervical disc displacement at C5-C6 level; M50.223 Other cervical disc displacement at C6-C7 level; Z79.51 Long term (current) use of inhaled steroids; Z79.82 Long term (current) use of aspirin; Z79.899 Other long term (current) drug therapy

== ENCOUNTER → 2025-04-16 | Outpatient (CLI) | payer MEDICARE ==
[~2025-04-16] MED LIST changes: +FERR324T21 PO; +ISOVUE-370 76% 100ML VIAL As Ordered ONE; +LOPR1TAB6 PO; +VITA500C24 PO; +XARE10TA PO
== END ==
LOC: M RAD 10:44
PROVIDERS: ATTEND Physician Assistant
DX: I73.9 Peripheral vascular disease, unspecified (principal)
CPT/HCPCS: 75635; Q9967

== ENCOUNTER → 2025-08-27 | Outpatient (REF) | payer MEDICARE ==
[~2025-08-27] MED LIST changes: -ISOVUE-370 76% 100ML VIAL As Ordered ONE
[2025-08-27 19:30] LABS: IRON (FE) 66.0 UG/DL (50-170); PERCENT SATURATION 22.8 % (13.2-45.0)
== END ==
LOC: M LAB REF 18:38
PROVIDERS: ATTEND Nurse Practitioner Family
DX: D50.9 Iron deficiency anemia, unspecified (principal)